=== PATIENT | female | born 1945 | race Caucasian/White ===

== ENCOUNTER → 2023-06-25 | Outpatient (CLI) | payer MEDICARE ==
--- NOTE | 2023-06-26 09:23 | MM ---
Reason for Exam: Screening (asymptomatic). Last mammogram was performed 16 year(s) and 7 month(s) ago. Patient History: Menarche at age 17. First Full-Term at age 20. Postmenopausal. 09/15/2001, Stereotactic Core Biopsy on the Right side. Risk Values: Noris 5 year model risk: 1.4%. NCI Lifetime model risk: 2.8%. Prior Study Comparison: 01/24/2004 Bilateral Special View Mammogram, [facility]. 09/03/2005 Bilateral Screening Mammogram, [facility]. 11/12/2006 Bilateral Screening Mammogram, [facility]. Tissue Density: The breast tissue is almost entirely fat. Findings: Analyzed By CAD. Right breast biopsy clip. There is no suspicious group of microcalcifications or new suspicious mass. Benign-appearing calcifications bilaterally. Overall Assessment: Benign, BI-RAD 2 Management: Screening Mammogram of both breasts in [address] [facility] will attempt to contact patient to return for supplemental views and ultrasound if indicated. Patient should continue monthly self-breast exams. A clinical breast exam by your physician is recommended on an annual basis. This exam should not preclude additional follow-up of suspicious palpable abnormalities. Note on Noris scores and lifetime risk: 1. A Noris score greater than 3% is considered moderate risk. If this is the case, consider specialist referral to assess eligibility for a risk reducing agent. 2. If overall lifetime risk for the development of breast cancer is 20% or higher, the patient may qualify for future screening with alternating mammogram and breast MRI. Electronically signed and approved by: Richi Ramos DO
== END | disposition home or self-care (01) ==
LOC: RADMAMWWP 13:21
PROVIDERS: ATTEND Family Medicine
DX: Z12.31 Encounter for screening mammogram for malignant neoplasm of breast (principal); Z78.0 Asymptomatic menopausal state
CPT/HCPCS: 77063; 77067

== ENCOUNTER 2023-08-07 07:47 | Day surgery (SDC) | payer MEDICARE ==
[2023-08-05 12:42] VITALS: BMI 28.3
[~2023-08-07 07:47] MED LIST: LIDOCAINE 1% (10MG/ML) FOR IV START INTRADERMA PRN
[2023-08-07] MEDS: LACTATED RINGERS 1,000 ML IV SCH (08:16)
[2023-08-07 08:39] VITALS: RESP 16; TEMP 96.3
[2023-08-07] MEDS ORDERED: LIDOCAINE 1% INJ 10MG/ML (20 ML MDV) ONE (08:42)
[2023-08-07] MEDS ORDERED: PROPOFOL 10 MG/ML 20 ML VIAL IV ONE (08:42)
--- NOTE | 2023-08-07 08:44 | P.GSHP ---
History of Present Illness H&P Date: 08/07/23 CHIEF COMPLAINT: GERD HISTORY OF PRESENT ILLNESS: The patient is a 78-year-old female who presents reports gastroesophageal reflux disease. Upper endoscopy was offered for further evaluation and management. PAST MEDICAL HISTORY: Please see list. PAST SURGICAL HISTORY: Please see list. MEDICATIONS: Please see list. ALLERGIES: Please see list. SOCIAL HISTORY: No illicit drug use FAMILY HISTORY: No reports of Crohn disease or ulcerative colitis. REVIEW OF ORGAN SYSTEMS: CONSTITUTIONAL: No reports of fevers or chills. GI: Denies any blood in stools or constipation. PHYSICAL EXAM: VITAL SIGNS: Stable GENERAL: Well-developed and pleasant in no acute distress. HEENT: No scleral icterus. Extraocular movements grossly intact. Moist buccal mucosa. NECK: Supple without lymphadenopathy. CHEST: Unlabored respirations. Equal bilateral excursions. CARDIOVASCULAR: Regular rate and rhythm. Distal 2+ pulses. ABDOMEN: Soft, nondistended. MUSCULOSKELETAL: No clubbing, cyanosis, or edema. ASSESSMENT: 1. Gastroesophageal reflux disease PLAN: 1. Recommend proceeding with an upper endoscopy Past Medical History Past Medical History: Asthma, COPD, Eye Disorder, Hearing Disorder / Deafness, Hyperlipidemia, Hypertension, Osteoarthritis (OA), Sleep Apnea/CPAP/BIPAP Additional Past Medical History / Comment(s): "Mild COPD". Glaucoma. Some hearing loss. Has CPAP. History of Any Multi-Drug Resistant Organisms: None Reported Past Surgical History: Orthopedic Surgery Additional Past Surgical History / Comment(s): Bilateral bunionectomy, bilateral eyelid lifts. Past Anesthesia/Blood Transfusion Reactions: No Reported Reaction Past Psychological History: No Psychological Hx Reported Smoking Status: Former smoker Past Alcohol Use History: None Reported Additional Past Alcohol Use History / Comment(s): Quit smoking 20 yrs ago. Past Drug Use History: None Reported - Past Family History Mother Family Medical History: No Reported History Medications and Allergies Home Medications Medication Instructions Recorded Confirmed Type Ergocalciferol [Vitamin D2 (1250 1,250 mcg PO WEEKLY 08/05/23 08/07/23 History Mcg = 11217 Iu)] Fluticasone/Umeclidin/Vilanter 1 puff INHALATION QAM 08/05/23 08/07/23 History [Trelegy Ellipta 200-62.5-25] Latanoprost Ophth [Xalatan 0.005%] 1 drops BOTH EYES HS 08/05/23 08/07/23 History Montelukast Sodium 10 mg PO QAM 08/05/23 08/07/23 History Pitavastatin Calcium 2 mg PO DAILY 08/05/23 08/07/23 History Raloxifene [Evista] 60 mg PO DAILY 08/05/23 08/07/23 History amLODIPine BESYLATE 10 mg PO QAM 08/05/23 08/07/23 History Allergies Allergy/AdvReac Type Severity Reaction Status Date / Time aspirin Allergy Anaphylaxis Verified 08/07/23 08:05 Penicillins Allergy Anaphylaxis Verified 08/07/23 08:05 Surgical - Exam Vital Signs Temp Pulse Resp BP Pulse Ox 96.3 F L 89 16 129/90 97 08/07/23 08:09 08/07/23 08:09 08/07/23 08:09 08/07/23 08:09 08/07/23 08:09
--- NOTE | 2023-08-07 08:56 | P.PCN ---
Date of Procedure: 08/07/23 Description of Procedure: PREOPERATIVE DIAGNOSIS: Diaphragmatic hiatal hernia Gastroesophageal reflux disease. POSTOPERATIVE DIAGNOSIS: Diaphragmatic hiatal hernia Gastroesophageal reflux disease. OPERATION: Esophagogastroduodenoscopy with biopsies along the esophagus, antrum and duodenum SURGEON: Gertrude Prakash MD ANESTHESIA: MAC. INDICATIONS: The patient is a 78-year-old female who presents with reflux disease. Benefits and risks of the procedure were described. Informed consent was obtained. DESCRIPTION: The patient was brought into the endoscopy suite and laid in the left lateral decubitus position. An Olympus gastroscope was passed along the posterior oropharynx down to the distal esophagus where the squamocolumnar junction was encountered at 40 cm from the incisors. The stomach was entered and no bile reflux was found. Additional findings are listed below. Biopsies with cold fo rceps were obtained of the antrum. The first through third portion of the duodenum was examined. Retroflexion of the scope confirmed Hill grade 4 lower esophageal valve. The squamocolumnar junction demonstrated LA grade B erosive esophagitis. The stomach was desufflated. The patient tolerated the procedure well. FINDINGS: Squamocolumnar junction 30 cm from the incisors. Diaphragmatic hiatus at 37 cm. Hiatal hernia, 7 cm. Hill grade 4 lower esophageal valve. LA grade B erosive esophagitis. Biopsies obtained Biopsies obtained of the duodenum. Chronic gastritis with biopsies obtained. RECOMMENDATIONS: Upper endoscopy as needed. Plan - Discharge Summary Discharge Rx Participant: No New Discharge Prescriptions: Continue Pitavastatin Calcium 2 mg PO DAILY Montelukast Sodium 10 mg PO QAM Fluticasone/Umeclidin/Vilanter [Trelegy Ellipta 200-62.5-25] 1 puff INHALATION QAM Latanoprost Ophth [Xalatan 0.005%] 1 drops BOTH EYES HS amLODIPine BESYLATE 10 mg PO QAM Raloxifene [Evista] 60 mg PO DAILY Ergocalciferol [Vitamin D2 (1250 Mcg = 97085 Iu)] 1,250 mcg PO WEEKLY Discharge Medication List Ergocalciferol [Vitamin D2 (1250 Mcg = 13043 Iu)] 1,250 mcg PO WEEKLY 08/05/23 [History] Fluticasone/Umeclidin/Vilanter [Trelegy Ellipta 200-62.5-25] 1 puff INHALATION QAM 08/05/23 [History] Latanoprost Ophth [Xalatan 0.005%] 1 drops BOTH EYES HS 08/05/23 [History] Montelukast Sodium 10 mg PO QAM 08/05/23 [History] Pitavastatin Calcium 2 mg PO DAILY 08/05/23 [History] Raloxifene [Evista] 60 mg PO DAILY 08/05/23 [History] amLODIPine BESYLATE 10 mg PO QAM 08/05/23 [History] Follow up Appointment(s)/Referral(s): Gertrude Prakash MD [STAFF PHYSICIAN] - 09/03/23 Patient Instructions/Handouts: Hiatal Hernia (DC) Discharge Disposition: HOME SELF-CARE
[2023-08-07 09:13] VITALS: BP 153/77; PULSE 82
== END 2023-08-07 09:32 | disposition home or self-care (01) ==
LOC: ORWHC2ENDO 07:47
PROVIDERS: ATTEND Surgery Plastic and Reconstructive Surgery
DX: K29.50 Unspecified chronic gastritis without bleeding (principal); K44.9 Diaphragmatic hernia without obstruction or gangrene; K21.9 Gastro-esophageal reflux disease without esophagitis; M19.90 Unspecified osteoarthritis, unspecified site; J44.89 Other specified chronic obstructive pulmonary disease; I10 Essential (primary) hypertension; H91.90 Unspecified hearing loss, unspecified ear; E78.5 Hyperlipidemia, unspecified; G47.33 Obstructive sleep apnea (adult) (pediatric); F10.90 Alcohol use, unspecified, uncomplicated; Z87.891 Personal history of nicotine dependence; Z88.0 Allergy status to penicillin; Z79.51 Long term (current) use of inhaled steroids; Z79.899 Other long term (current) drug therapy; Z88.6 Allergy status to analgesic agent
CPT/HCPCS: 88305; 43239; J2001; J2704

== ENCOUNTER → 2023-08-12 | Outpatient (CLI) | payer MEDICARE ==
--- NOTE | 2023-08-12 18:25 | FL ---
EXAMINATION TYPE: FL barium swallow DATE OF EXAM: 08/12/2023 CLINICAL INDICATION: 78-year-old female K44.9 DIAPHRAGMATIC HERNIA WITHOUT OBSTRUCTION OR COMPARISON: None Total Fluoroscopy Time: 2 minutes 14 seconds 367.45 mGycm2 DAP 63 images obtained. FINDINGS: The swallowing mechanism is normal. Aside from [id number] thickening of the cricopharyngeus mus valery, the hypopharyngeal anatomy is preserved. The cervical and thoracic portions have a normal course and caliber. Moderate tertiary peristaltic co ntractions are present. Mildly blunted secondary stripping waves. Mild delay in complete clearance of contrast from the esophagus. The mucosa is normal and no persistent filling defect is encountered. There is a moderate to large hiatal hernia involving just under half of the stomach within the lower chest. Mild gastroesophageal reflux is visualized through the course of the exam. IMPRESSION: 1. Moderate to large hiatal hernia involving just under half of the stomach. Mild gastroesophageal re flux seen during the course of the exam. 2. Mild to moderate CP muscle hypertrophy. 3. Mild esophageal dysmotility.
== END | disposition home or self-care (01) ==
LOC: RADUSWWP 10:45
PROVIDERS: ATTEND Surgery Plastic and Reconstructive Surgery
DX: K44.9 Diaphragmatic hernia without obstruction or gangrene (principal); K22.4 Dyskinesia of esophagus; K21.9 Gastro-esophageal reflux disease without esophagitis; M62.89 Other specified disorders of muscle
CPT/HCPCS: 74220

== ENCOUNTER 2023-12-06 09:29 | Day surgery (SDC) | payer MEDICARE ==
--- NOTE | 2023-12-06 07:50 | P.GSHP ---
History of Present Illness H&P Date: 12/06/23 CHIEF COMPLAINT: Paraesophageal hiatal hernia with gastroesophageal reflux disease. HISTORY OF PRESENT ILLNESS: The patient is a 78-year-old female who presents with symptomatic paraesophageal hiatal hernia over one year with gastroesophageal reflux disease. She has completed upper endoscopy workup. Now she presents for surgical intervention. PAST MEDICAL HISTORY: Please see list. PAST SURGICAL HISTORY: Please see list. MEDICATIONS: Please see list. ALLERGIES: Please see list. SOCIAL HISTORY: No illicit drug use FAMILY HISTORY: No reports of Crohn disease or ulcerative colitis. REVIEW OF ORGAN SYSTEMS: CONSTITUTIONAL: No reports of fevers or chills. GI: Denies any blood in stools or constipation. PHYSICAL EXAM: VITAL SIGNS: Stable GENERAL: Well-developed pleasant and in no acute distress. HEENT: No scleral icterus. Extraocular movements grossly intact. Moist buccal mucosa. NECK: Supple without lymphadenopathy. CHEST: Unlabored respirations. Equal bilateral excursions. CARDIOVASCULAR: Regular rate and rhythm. Distal 2+ pulses. ABDOMEN: Soft, nondistended. No peritoneal signs. MUSCULOSKELETAL: No clubbing, cyanosis, or edema. SKIN: Well-perfused. Good skin turgor. REPORTS: Upper endoscopy demonstrates paraesophageal hiatal hernia BARIUM SWALLOW: Images reviewed demonstrating paraesophageal hiatal hernia. This is my independent interpretation. REPORTS: Cardiology risk assessment obtained. Please see chart. ASSESSMENT: 1. Diaphragmatic paraesophageal hiatal hernia with severe gastroesophageal reflux disease. PLAN: 1. Recommend proceeding with a robotic paraesophageal hiatal hernia with possible mesh. 2. Benefits and risks of surgical intervention was discussed including possibility of open technique. 3. Inpatient hospitalization recommended of 2 nights 4. DVT prophylaxis. 5. Antibiotic prophylaxis. 6. She has also completed a very low caloric high-protein diet to address underlying hepatomegaly. 7. Non narcotic pain management including abdominal wall block described 8. Blood sugar glucose described. 9. Weight loss management described. 10. She is elevated risk due to heart disease including pre-existing kidney disease. Past Medical History Past Medical History: Asthma, COPD, Eye Disorder, Hearing Disorder / Deafness, Hyperlipidemia, Hypertension, Sleep Apnea/CPAP/BIPAP Additional Past Medical History / Comment(s): CHRONIC COUGH. osteoporosis. USES CPAP. History of Any Multi-Drug Resistant Organisms: None Reported Additional Past Surgical History / Comment(s): BILATERAL BUNIONS REMOVED. BI LATERAL. EYELID LIFT. BILATERAL CATARACTS REMOVED/LENS IMPLANT. Past Anesthesia/Blood Transfusion Reactions: No Reported Reaction Past Psychological History: No Psychological Hx Reported Smoking Status: Former smoker Past Alcohol Use History: Occasional Additional Past Alcohol Use History / Comment(s): QUIT 2003. SMOKED .5PPD Past Drug Use History: None Reported - Past Family History Mother Family Medical History: No Reported History Medications and Allergies Home Medications Medication Instructions Recorded Confirmed Type Ergocalciferol [Vitamin D2 (1250 1,250 mcg PO WEEKLY 08/05/23 12/05/23 History Mcg = 45803 Iu)] Fluticasone/Umeclidin/Vilanter 1 puff INHALATION QAM 08/05/23 12/05/23 History [Trelegy Ellipta 200-62.5-25] Latanoprost Ophth [Xalatan 0.005%] 1 drops BOTH EYES HS 08/05/23 12/05/23 History Montelukast Sodium 10 mg PO QAM 08/05/23 12/05/23 History Pitavastatin Calcium 2 mg PO QAM 08/05/23 12/05/23 History Raloxifene [Evista] 60 mg PO DAILY 08/05/23 12/05/23 History amLODIPine BESYLATE 10 mg PO QAM 08/05/23 12/05/23 History Allergies Allergy/AdvReac Type Severity Reaction Status Date / Time aspirin Allergy Anaphylaxis Verified 12/05/23 08:17 Penicillins Allergy Anaphylaxis Verified 12/05/23 08:17
[~2023-12-06 09:29] MED LIST changes: +MIDAZOLAM 2 MG/2 ML VIAL IV PRN; +ONDANSETRON 4 MG/2 ML VIAL IVP PRN; +fentaNYL (PF) 50 MCG/ML 2 ML AMP IV PRN
[2023-12-06] MEDS: IV FLUID CONTINUATION 1,000 ML IV ONE ×3 (10:43→16:17)
[2023-12-06] MEDS: DEXAMETHASONE SOD PHOSPHATE 4 MG/ML 1 ML VIAL IV ONE (10:49)
[2023-12-06] MEDS: ACETAMINOPHEN TAB 500 MG TAB PO PRN (10:49)
[2023-12-06] MEDS: LACTATED RINGERS 1,000 ML IV SCH (10:50)
[2023-12-06] MEDS: ONDANSETRON 4 MG/2 ML VIAL IVP ONE (10:50)
[2023-12-06] MEDS: HEPARIN SODIUM,PORCINE 5,000 UNIT/ML 1 ML VIAL SQ PRN (10:51)
[2023-12-06 10:58] LABS: Basophils % (A) 1 %; Eosinophils # (A) 0.1 k/uL (0-0.7); Eosinophils % (A) 1 %; HCT 41.9 % (34.0-46.0); HGB 12.9 gm/dL (11.4-16.0); Lymphocytes # (A) 1.4 k/uL (1.0-4.8); Lymphocytes % (A) 17 %; MCH 30.5 pg (25.0-35.0); MCHC 30.9 g/dL (31.0-37.0); MCV 98.6 fL (80.0-100.0); Mean Platelet Volume 9.9; Monocytes # (A) 0.7 k/uL (0-1.0); Monocytes % (A) 8 %; Neutrophils % (A) 71 %; Platelet Count 180 k/uL (150-450); RBC 4.25 m/uL (3.80-5.40); RDW 13.3 % (11.5-15.5); WBC 8.4 k/uL (3.8-10.6)
[2023-12-06 11:04] LABS: ALT 16 U/L (4-34); African American GFR (CKD) 49 (>60 ml/min/1.73 sqM); Albumin 4.1 g/dL (3.5-5.0); Anion Gap 6 mmol/L; Blood Urea Nitrogen 41 mg/dL (7-17); Calcium 9.5 mg/dL (8.4-10.2); Carbon Dioxide 22 mmol/L (22-30); Chloride 113 mmol/L (98-107); Glucose 90 mg/dL (74-99); Non-African American GFR(CKD) 42 (>60 ml/min/1.73 sqM); Sodium 141 mmol/L (137-145); Total Bilirubin 0.7 mg/dL (0.2-1.3); Total Protein 6.9 g/dL (6.3-8.2)
[2023-12-06 11:07] LABS: Potassium 5.2 mmol/L (3.5-5.1)
[2023-12-06 11:09] LABS: AST 30 U/L (14-36); Alkaline Phosphatase 60 U/L (38-126); Potassium 5.2 mmol/L (3.5-5.1)
[2023-12-06] MEDS ORDERED: MIDAZOLAM 2 MG/2 ML VIAL ONE (11:35)
[2023-12-06] MEDS ORDERED: LIDOCAINE 1% INJ 10MG/ML (20 ML MDV) ONE (11:35)
[2023-12-06] MEDS ORDERED: PHENYLEPHRINE 10 MG/ML VIAL ONE (11:35)
[2023-12-06] MEDS ORDERED: GLYCOPYRROLATE 0.2 MG/ML 2 ML VIAL ONE (11:35)
[2023-12-06] MEDS ORDERED: ROCURONIUM 10 MG/ML (5 ML VIAL) IV ONE (11:35)
[2023-12-06] MEDS ORDERED: SUCCINYLCHOLINE CHLORIDE 200 MG/10 ML VIAL IV ONE (11:35)
[2023-12-06] MEDS ORDERED: fentaNYL (PF) 50 MCG/ML 2 ML AMP ONE (11:35)
[2023-12-06] MEDS ORDERED: NEOSTIGMINE 1 MG/ML 10 ML VIAL ONE (11:35)
[2023-12-06] MEDS ORDERED: PROPOFOL 10 MG/ML 20 ML VIAL IV ONE (11:35)
[2023-12-06] MEDS: LIDOCAINE 1%-EPI 1:100,000 20 ML VIAL SQ ONE (12:06)
[2023-12-06] MEDS: SODIUM CHLORIDE 0.9% 1,000 ML IV SCH (17:29)
[2023-12-06] MEDS: METOCLOPRAMIDE 5 MG/ML 2 ML VIAL IVP SCH (17:29)
[2023-12-06] MEDS: ONDANSETRON 4 MG/2 ML VIAL IVP PRN (19:12)
[2023-12-06] MEDS: HYDROmorphone 0.5 MG/0.5 ML SYRINGE IVP PRN (19:15)
[2023-12-06] MEDS: SYMBICORT 80-4.5 MCG INHALER INHALATION SCH (20:07)
[2023-12-06] MEDS: SIMETHICONE 40 MG/0.6 ML DROPS 2,000 MG/30 ML BOTTLE PO SCH (21:39)
[2023-12-06] MEDS: HEPARIN SODIUM,PORCINE 5,000 UNIT/ML 1 ML VIAL SQ SCH (21:44)
[2023-12-06] MEDS: PANTOPRAZOLE 40 MG/10 ML VIAL IVP SCH (21:47)
[2023-12-06] MEDS: LATANOPROST 0.005% OPHTH DROPS 2.5 ML BTL BOTH EYES SCH (21:51)
[2023-12-06] MEDS: HYDROmorphone 1 MG/ML 1 ML SYRINGE IVP PRN (23:30)
--- NOTE | 2023-12-07 08:23 | P.OP ---
Date of Procedure: 12/06/23 Description of Procedure: SURGEON: TRE NESS MD PREOPERATIVE DIAGNOSES: 1. Symptomatic paraesophageal diaphragmatic hiatal hernia. 2. Gastroesophageal reflux disease. 3. Hypertensive heart disease 4. Chronic obstructive pulmonary disease 5. Chronic renal insufficiency POSTOPERATIVE DIAGNOSES: 1. Paraesophageal midline diaphragmatic hernia, 9 cm, with incarceration, partial obstruction 2. Gastroesophageal reflux disease. 3. Hypertensive heart disease 4. Obstructive pulmonary disease 5. Left inguinal hernia, indirect 6. Chronic cholecystitis 7. Multiple acute gastric ulcers with bleeding OPERATION: 1. Robotic-assisted da Rolando Xi laparoscopic repair of incarcerated with partial obstruction paraesophageal hiatal hernia, 9 x 6 cm, with [place] Biopatch A 8 x 8 cm. 2. Intraoperative esophagogastroduodenoscopy 3. Placement of 56-Iranian bougie for esophageal dysmotility ANESTHESIA: General with local anesthetic. ESTIMATED BLOOD LOSS: 20 mL SPECIMENS REMOVED: None COMPLICATIONS: None. Condition: stable Disposition: floor FINDINGS: 1. Midline incarcerated and partially obstructed paraesophageal hiatal hernia 9 x 6 cm recurrent complete reconstruction of diaphragmatic hiatus 2. Intraoperative upper endoscopy confirms complete closure of hiatal hernia from Hill grade 4 to Hill grade 1 3. Intraesophageal length over 2 cm 4. Multiple gastric ulcers, acute 4 to 5 mm of incarcerated stomach with intermittent bleeding 5. Moderate subcutaneous emphysema along neck and face resolved after surgery 6. Left inguinal hernia, 1 cm, indirect without incarceration 7. Thickened gallbladder wall concerning for chronic cholecystitis 8. No hepatomegaly or fatty liver disease within the liver consistent with 2- week high-protein low-carb diet with successful 7 to 10 pound weight loss 2 weeks prior to surgery 9. Over 60% incarceration of proximal stomach reduced without gastrotomy INDICATIONS: The patient is a 78-year-old female who presents with gastroesophageal reflux disease poorly controlled despite medications, and a symptomatic diaphragmatic hiatal hernia. Preoperative workup including upper endoscopy demonstrated incarcerated diaphragmatic hiatal hernia. Given the severity of symptoms, the patient had elected for surgical intervention. Benefits and risks including bleeding, infection, recurrence, dysphagia, injury to the lung, need for further surgery was described at length. Informed consent was obtained. DESCRIPTION: The patient was brought into the operating room and placed in supine position. Preoperatively the patient had received heparin subcutaneously for DVT prophylaxis. After general induction, the abdomen was prepped and draped in standard sterile fashion. The patient had previously voided prior to coming to the operating room. Ioban draping was placed along the abdomen. A timeout protocol was confirmed with the surgical team, for which the patient's name, procedure to be performed including DVT prophylaxis with bilateral SCDs, and preoperative antibiotics were also confirmed. A robotic da Rolando Xi system was prepped and primed. At 12 cm from the xiphoid to just below the umbilicus, proposed port sites were marked with indelible marker along the left axillary line, left mid-clavicular line with each ports were marked 10 cm from each other. A 5 mm 0 degrees laparoscopic trocar entry was performed along the left upper quadrant. The abdomen was insufflated to 15 mmHg pressure was tolerated well. Diagnostic laparoscopy demonstrated no injury to bowel, viscera, or mesentery. No injury had occurred to the small bowel or viscera. The liver was smooth consistent with two-week high-protein low-carb diet. Previous trochar sites from cholecystectomy were used. Next, one 8 mm robotic port was placed along the right upper abdomen. An 8-mm port was were placed along the right lateral lateral abdominal wall. The camera 8-mm port was maintained along the epigastrium. Another 12 mm port was placed along the left upper abdominal wall after exchanging the 5 mm port. Please note that the ports were placed at least 20 cm away from the target anatomy. Care was taken to check that each robotic arm were safely away from collision with the bed or the patient. At the epigastrium, a medium sized Best liver retractor was placed under direct visualization with the [employer]ist placed under the right shoulder of the patient. All robotic arms were used. The patient was repositioned in reverse Trendelenburg position at 21-degrees after lowering the bed. The robot was docked above the right side of the patient. Using a grasper for arm 3, a grasper for arm 1, including vessel sealer for arm 2, the robotic system was docked and primed as described. Instruments were interchanged by the surgical supply assistant. I had sat at the console. The gastrohepatic ligament was cleaved using a vessel sealer. Next, the phrenoesophageal ligament was mobilized and the distal esophagus was mobilized circumferentially. The left and right crura was identified. Circumferentially, the hernia sac was excised and brought into the peritoneal cavity. Moderate dissection into the mediastinum was performed to release the esophagus into the abdominal cavity. The paraesophageal hiatal hernia sac was also incised and divided from the esophagus. Care was taken to avoid any gastrotomy. The measured defect was consistent with 3 cm axial length and 3 cm in width. After dissection, the distal esophagus of 2+ cm was brought into the abdominal cavity. Once the hiatus and crura was dissected, 2-0 VLOC nonabsorbable suture was placed to reapproximate the diaphragmatic hiatus posteriorly. To buttress the repair, a [place] Biopatch A was prepared along the back table and cut in half of a christie-hole fashion as to reinforce the repair as an underlay. The mesh was placed along the crural repair and tagged using horizontal mattress sutures using 2-0 VLOC. I went to the head of the bed to perform intraoperative esophagogastroduodenoscopy and placement of a 56Fr bougie. The bougie was passed along the posterior oropharynx into the stomach to address pre-existing esophageal dysmotility for 2 minutes then removed. An Olympus gastroscope was passed through posterior oropharynx. Retroflexion of the scope confirmed a Hill grade 1 lower esophageal valve. The stomach had been desufflated. No evidence of leaks were found of the esophagus or stomach. The GI tract with desufflated This concluded the endoscopic portion of the case. The robot was undocked from the patient. I re-scrubbed into the case. All instruments and pneumoperitoneum and specimens were evacuated from the abdominal cavity. Incisions were reapproximated using 4-0 Monocryl in an interrupted subcuticular fashion. Liquid glue was applied to the skin. Local anesthetic was infiltrated in all wounds for postop analgesia. At the end of the procedure, needle, sponge, and instrument count was verified correct by the surgical consultant. The patient had tolerated the procedure well and was taken to the postanesthesia unit in stable condition. Large paraesophageal hiatal hernia with reconstruction of the hiatus using 2 OV lock and mesh. Width of defect 6 cm length of 8 cm. Completely reduced with placement of bougie. Multiple bleeding ulcers of the incarcerated stomach found, size of ulcers 3 mm at least 4 upper stomach . Left inguinal hernia without obstruction. Gallbladder thickened wall questionable for cholecystitis
--- NOTE | 2023-12-07 08:25 | P.PN ---
Progress Note - Text Progress Note Date: 12/07/23 Intraoperative findings discussed with patient and family postoperatively. Due to extensive nature of obstruction including multiple acute gastric ulcers with bleeding, recommend inpatient hospitalization anticipated more than 2 nights. Protonix 40 mg twice daily initiated. Carafate suspension initiated. Liquid diet including modified protein diet started. Consultation for medical management including close monitoring of renal disease advised. Patient made aware hospitalization through Saturday advised due to complexity of surgery, comorbidities and generalized weakness.
[2023-12-07] MEDS: IPRATROPIUM 0.5 MG/2.5 ML NEBU INHALATION SCH (09:10)
[2023-12-07] MEDS: MONTELUKAST 10 MG TAB PO SCH (09:41)
[2023-12-07] MEDS: DEXAMETHASONE SOD PHOSPHATE 4 MG/ML 1 ML VIAL IVP SCH (09:41)
[2023-12-07] MEDS: SUCRALFATE 1 GM TAB PO SCH (09:42)
--- NOTE | 2023-12-07 11:43 | P.HPIM ---
History of Present Illness Patient is a 49-year-old female admitted for paraesophageal hiatal hernia with multiple ulcers. Patient underwent surgery have some soreness in the surgical site area. Patient has not had any fever does not have leukocytosis at this time liver enzymes, potassium is mildly elevated due to slight hemolysis patient serum creatinine is 1.24. Baseline is not available. BUN is 41 . Patient has a hyperchloremic metabolic acidosis because of which normal saline will be discontinued and patient was started on lactated Ringer's. REVIEW OF SYSTEMS: CONSTITUTIONAL: No fever, no malaise, no fatigue. HEENT: No recent visual problems or hearing problems. Denied any sore throat. CARDIOVASCULAR: No chest pain, orthopnea, PND, no palpitations, no syncope. PULMONARY: No shortness of breath, no cough, no hemoptysis. GASTROINTESTINAL: As mentioned above NEUROLOGICAL: No headaches, no weakness, no numbness. HEMATOLOGICAL: Denies any bleeding or petechiae. GENITOURINARY: Denies any burning micturition, frequency, or urgency. MUSCULOSKELETAL/RHEUMATOLOGICAL: Denies any joint pain, swelling, or any muscle pain. ENDOCRINE: Denies any polyuria or polydipsia. The rest of the 14-point review of systems is negative. PHYSICAL EXAMINATION: GENERAL: The patient is alert and oriented x3, not in any acute distress. Well developed, well nourished. HEENT: Pupils are round and equally reacting to light. EOMI. No scleral icterus. No conjunctival pallor. Normocephalic, atraumatic. No pharyngeal erythema. No thyromegaly. CARDIOVASCULAR: S1 and S2 present. No murmurs, rubs, or gallops. PULMONARY: Chest is clear to auscultation, no wheezing or crackles. ABDOMEN: Surgical site areas are clean MUSCULOSKELETAL: No joint swelling or deformity. EXTREMITIES: No cyanosis, clubbing, or pedal edema. NEUROLOGICAL: Gross neurological examination did not reveal any focal deficits. SKIN: No rashes. Assessment and plan -Hiatal hernia status postrepair, patient has multiple ulcers patient is on Protonix twice a day along with simethicone which will be continued -Hyperchloremic metabolic acidosis: Normal saline will be continued patient will be started on lactated Ringer's -Possible acute renal failure IV fluids as mentioned above at 75 cc/h -Hyperkalemia secondary to hemolysis -Hyperlipidemia patient will be resumed on her statin -Hypertension patient has perioperative hypotension hold off on amlodipine -Patient is on raloxifene no history of breast cancer may be for osteoporosis can be held temporarily Mild transient elevation of liver enzymes very minimal elevation probably secondary to surgery no further intervention at this time DVT prophylaxis: Past Medical History Past Medical History: Asthma, COPD, Eye Disorder, Hearing Disorder / Deafness, Hyperlipidemia, Hypertension, Sleep Apnea/CPAP/BIPAP Additional Past Medical History / Comment(s): CHRONIC COUGH. osteoporosis. USES CPAP. History of Any Multi-Drug Resistant Organisms: None Reported Additional Past Surgical History / Comment(s): BILATERAL BUNIONS REMOVED. BILATERAL. EYELID LIFT. BILATERAL CATARACTS REMOVED/LENS IMPLANT. Past Anesthesia/Blood Transfusion Reactions: No Reported Reaction Past Psychological History: No Psychological Hx Reported Smoking Status: Former smoker Past Alcohol Use History: Occasional Additional Past Alcohol Use History / Comment(s): QUIT 2003. SMOKED .5PPD Past Drug Use History: None Reported - Past Family History Mother Family Medical History: No Reported History Medications and Allergies Home Medications Medication Instructions Recorded Confirmed Type Ergocalciferol [Vitamin D2 (1250 1,250 mcg PO WEEKLY 08/05/23 12/06/23 History Mcg = 10252 Iu)] Fluticasone/Umeclidin/Vilanter 1 puff INHALATION QA 08/05/23 12/05/23 History [Trelegy Ellipta 200-62.5-25] Latanoprost Ophth [Xalatan 0.005%] 1 drops BOTH EYES HS 08/05/23 12/06/23 History Montelukast Sodium 10 mg PO QAM 08/05/23 12/05/23 History Pitavastatin Calcium 2 mg PO QAM 08/05/23 12/06/23 History Raloxifene [Evista] 60 mg PO DAILY 08/05/23 12/06/23 History amLODIPine BESYLATE 10 mg PO QAM 08/05/23 12/05/23 History Allergies Allergy/AdvReac Type Severity Reaction Status Date / Time aspirin Allergy Anaphylaxis Verified 12/06/23 10:09 Penicillins Allergy Anaphylaxis Verified 12/06/23 10:09 Physical Exam Vitals: Vital Signs Temp Pulse Resp BP Pulse Ox 12/07/23 08:00 80 16 12/07/23 07:13 97.9 F 80 16 115/70 97 12/07/23 02:00 97.9 F 70 16 125/77 93 L 12/06/23 20:00 97.6 F 73 16 148/84 95 12/06/23 17:04 97.7 F 71 16 123/74 98 12/06/23 16:30 76 16 117/59 100 12/06/23 16:15 64 16 107/55 100 12/06/23 16:00 67 16 108/58 100 12/06/23 15:45 75 16 111/55 99 12/06/23 15:30 68 16 120/57 100 12/06/23 15:15 73 16 120/57 100 12/06/23 15:00 76 16 119/56 100 12/06/23 14:45 76 16 135/62 100 12/06/23 14:30 83 18 109/56 100 12/06/23 14:15 98.0 F 96 18 124/60 100 Intake and Output 12/06/23 12/07/23 12/07/23 22:59 06:59 14:59 Intake Total 940 Balance 940 Intake: Intake, IV Titration 700 Amount Sodium Chloride 0.9% 1, 600 000 ml @ 50 mls/hr IV . Q20H [facility] Rx#:[id number] ceFAZolin 2 gm In Sodium 50 Chloride 0.9% 50 ml @ 100 mls/hr IVPB ONCE PRN Rx# :[id number] ceFAZolin 2 gm In Sodium 50 Chloride 0.9% 50 ml @ 100 mls/hr IVPB Q8H [facility] Rx#: [id number] Oral 240 Other: Voiding Method Toilet # Voids 0 2 Results CBC & Chem 7: 12/06/23 10:43 12/06/23 10:43 Thrombosis Risk Factor Assmnt - Choose All That Apply Each Factor Represents 1 point: Obesity (BMI >25) Each Risk Factor Represents 2 Points: Laparoscopic surgery Each Risk Factor Represents 3 Points: Age 75 years or older Thrombosis Risk Factor Assessment Total Risk Factor Score: 6 Thrombosis Risk Factor Assessment Level: High Risk
--- NOTE | 2023-12-07 11:55 | P.NPCON ---
History of Present Illness - Reason for Consult acute renal failure - History of Present Illness Reason for consultation: Acute kidney injury History of present illness: Patient is a 78-year-old female seen in renal consultation for acute kidney injury. Patient states she has been told of elevated creatinine in the past over the last couple of years. Creatinine this admission yesterday was 1.24. Potassium level 5.2. Patient underwent laparoscopic repair of incarcerated hiatal hernia with partial obstruction on December 06, 2023. She denies use of nonsteroidals. Denies history of diabetes. Denies history of coronary artery disease. Patient states her mother was on hemodialysis but at the end of her life. She does not follow with nephrology outpatient. Patient does have history of high blood pressure and is maintained on amlodipine outpatient. Blood pressure currently well-controlled. Denies gross hematuria or dysuria. No fever or chills. No vomiting or diarrhea. Vital signs are stable. General: No acute distress. HEENT: Head exam is unremarkable. LUNGS: No audible rhonchi or wheezes. HEART: Rate and Rhythm are regular. ABDOMEN: Nontender. EXTREMITITES: No edema. Past Medical History Past Medical History: Asthma, COPD, Eye Disorder, Hearing Disorder / Deafness, Hyperlipidemia, Hypertension, Sleep Apnea/CPAP/BIPAP Additional Past Medical History / Comment(s): CHRONIC COUGH. osteoporosis. USES CPAP. History of Any Multi-Drug Resistant Organisms: None Reported Additional Past Surgical History / Comment(s): BILATERAL BUNIONS REMOVED. BILATERAL. EYELID LIFT. BILATERAL CATARACTS REMOVED/LENS IMPLANT. Past Anesthesia/Blood Transfusion Reactions: No Reported Reaction Past Psychological History: No Psychological Hx Reported Smoking Status: Former smoker Past Alcohol Use History: Occasional Additional Past Alcohol Use History / Comment(s): QUIT 2003. SMOKED .5PPD Past Drug Use History: None Reported - Past Family History Mother Family Medical History: No Reported History Medications and Allergies Home Medications Medication Instructions Recorded Confirmed Type Ergocalciferol [Vitamin D2 (1250 1,250 mcg PO WEEKLY 08/05/23 12/06/23 History Mcg = 53265 Iu)] Fluticasone/Umeclidin/Vilanter 1 puff INHALATION QAM 08/05/23 12/05/23 History [Trelegy Ellipta 200-62.5-25] Latanoprost Ophth [Xalatan 0.005%] 1 drops BOTH EYES HS 08/05/23 12/06/23 History Montelukast Sodium 10 mg PO QAM 08/05/23 12/05/23 History Pitavastatin Calcium 2 mg PO QAM 08/05/23 12/06/23 History Raloxifene [Evista] 60 mg PO DAILY 08/05/23 12/06/23 History amLODIPine BESYLATE 10 mg PO QAM 08/05/23 12/05/23 History Allergies Allergy/AdvReac Type Severity Reaction Status Date / Time aspirin Allergy Anaphylaxis Verified 12/06/23 10:09 Penicillins Allergy Anaphylaxis Verified 12/06/23 10:09 Physical Exam Vitals: Vital Signs Temp Pulse Resp BP Pulse Ox 12/07/23 08:00 80 16 12/07/23 07:13 97.9 F 80 16 115/70 97 12/07/23 02:00 97.9 F 70 16 125/77 93 L 12/06/23 20:00 97.6 F 73 16 148/84 95 12/06/23 17:04 97.7 F 71 16 123/74 98 12/06/23 16:30 76 16 117/59 100 12/06/23 16:15 64 16 107/55 100 12/06/23 16:00 67 16 108/58 100 12/06/23 15:45 75 16 111/55 99 12/06/23 15:30 68 16 120/57 100 12/06/23 15:15 73 16 120/57 100 12/06/23 15:00 76 16 119/56 100 12/06/23 14:45 76 16 135/62 100 12/06/23 14:30 83 18 109/56 100 12/06/23 14:15 98.0 F 96 18 124/60 100 Intake and Output 12/06/23 12/07/23 12/07/23 22:59 06:59 14:59 Intake Total 940 Balance 940 Intake: Intake, IV Titration 700 Amount Sodium Chloride 0.9% 1, 600 000 ml @ 50 mls/hr IV . Q20H [facility] Rx#:[id number] ceFAZolin 2 gm In Sodium 50 Chloride 0.9% 50 ml @ 100 mls/hr IVPB ONCE PRN Rx# :[id number] ceFAZolin 2 gm In Sodium 50 Chloride 0.9% 50 ml @ 100 mls/hr IVPB Q8H [facility] Rx#: [id number] Oral 240 Other: Voiding Method Toilet # Voids 0 2 Results - Lab Results Most recent lab results Calcium 9.5 mg/dL (8.4-10.2) 12/06/23 10:43 12/06/23 10:43 12/06/23 10:43 Assessment and Plan Plan: Assessment: 1. Acute kidney injury versus underlying chronic kidney disease. Patient says she has been told of elevated creatinine in the past. She does not follow with nephrology outpatient. Creatinine 1.24 this admission. 2. Benign hypertension. 3. Mild hyperkalemia from acute kidney injury and lactated Ringer's. 4. Status post laparoscopic surgical repair of incarcerated hiatal hernia on December 06, 2023. Plan: Hep-Lock IV fluids. Encouraged oral intake. Check UA. Check renal ultrasound. Advised to follow-up outpatient 1 to 2 weeks postdischarge. Avoid nephrotoxins. Morning labs pending. Thank you for the consultation. I will continue to follow the patient with you during her hospital stay.
[2023-12-07 12:10] LABS: African American GFR (CKD) 67 (>60 ml/min/1.73 sqM); Anion Gap 2 mmol/L; Blood Urea Nitrogen 20 mg/dL (7-17); Calcium 8.6 mg/dL (8.4-10.2); Carbon Dioxide 22 mmol/L (22-30); Chloride 116 mmol/L (98-107); Glucose 83 mg/dL (74-99); Non-African American GFR(CKD) 58 (>60 ml/min/1.73 sqM); Sodium 140 mmol/L (137-145)
--- NOTE | 2023-12-07 12:23 | US ---
EXAMINATION TYPE: US kidneys/renal and bladder DATE OF EXAM: 12/07/2023 COMPARISON: NONE CLINICAL INDICATION: Female, 78 years old with history of kenna; kenna EXAM MEASUREMENTS: Right Kidney: 9.1 x 4.4 x 4.4 cm Left Kidney: 8.1 x 3.9 x 4.0 cm Right Kidney: No hydronephrosis or masses seen Left Kidney: No hydronephrosis or masses seen Bladder: wnl Bilateral Jets seen: No There is no evidence for hydronephrosis at this point in time. No nephrolithiasis is seen. No roro s are identified. The urinary bladder is anechoic. Bilateral ureteral jets are seen. IMPRESSION: No evidence for obstructive uropathy. Cortical medullary differentiation is maintained.
[2023-12-07] MEDS: LACTATED RINGERS 1,000 ML IV SCH (12:31)
[2023-12-07] MEDS: SODIUM CHLORIDE 0.9% 1,000 ML IV SCH (13:50)
[2023-12-07 16:06] VITALS: BMI 28.1
--- NOTE | 2023-12-07 17:46 | P.PN ---
Progress Note - Text Progress Note Date: 12/07/23 CHIEF COMPLAINT: Large Paraesophageal Hernia HISTORY OF PRESENT ILLNESS: Tolerating FLD. Denies nausea and vomiting. PHYSICAL EXAM: VITAL SIGNS: Reviewed GENERAL: Well-developed in no acute distress. HEENT: No sclera icterus. Extraocular movements grossly intact. Moist buccal mucosa. Head is atraumatic, normocephalic. Hears conversational speech. No nasal drainage. NECK: Supple without lymphadenopathy. CHEST: Non-labored respirations and equal bilateral excursions. CARDIOVASCULAR: Palpable 2+ radial pulses. ABDOMEN: soft, NTND MUSCULOSKELETAL: No clubbing or cyanosis. NEUROLOGIC: No focal or lateralizing signs. Cranial nerves II through XII grossly intact. PSYCH: Appropriate affect. Alert and oriented to person, place and time. SKIN: Well perfused. Good skin turgor. ASSESSMENT: 1. Large Paraesophageal Hernia PLAN: -FLD -UGI saturday -Nausea Control
[2023-12-07 21:04] LABS: Appearance,Urine Clear (Clear); Bilirubin,Urine Negative (Negative); Blood,Urine Negative (Negative); Color,Urine Colorless; Glucose,Urine (UA) 1+ (Negative); Ketones,Urine Negative (Negative); Leukocyte Esterase,Urine Negative (Negative); Nitrite,Urine Negative (Negative); PH, Urine 5.5 (5.0-8.0); Protein,Urine Negative (Negative); Specific Gravity,Urine 1.013 (1.001-1.035); Urobilinogen,Urine <2.0 mg/dL (<2.0)
[2023-12-08] MEDS: ATORVASTATIN 10 MG TAB PO SCH (08:44)
[2023-12-08] MEDS ORDERED: ATORVASTATIN 10 MG TAB PO SCH (09:00)
[2023-12-08] MEDS ORDERED: RALOXIFENE 60 MG TAB PO SCH (09:00)
--- NOTE | 2023-12-08 09:53 | P.PN ---
Subjective Progress Note Date: 12/08/23 patient [place] stable. She has minimal complaints of pain. On exam vital signs appear stable. Abdomen soft. There is status post laparoscopic repair of hiatal hernia. Patient scheduled for esophagram in a.m. Objective - Vital Signs Vital signs: Vital Signs Temp 97.9 F 12/08/23 07:17 Pulse 78 12/08/23 07:17 Resp 17 12/08/23 07:17 BP 127/69 12/08/23 07:17 Pulse Ox 93 L 12/08/23 07:17 FiO2 Intake & Output 12/07/23 12/08/23 12/08/23 18:59 06:59 18:59 Intake Total 240 590 Output Total 400 Balance -160 590 Weight 67.6 kg Intake: Oral 240 590 Output: Urine 400 Other: Voiding Method Toilet Toilet # Voids 2 2 - Labs CBC & Chem 7: 12/06/23 10:43 12/07/23 11:13 Labs: Abnormal Lab Results - Last 24 Hours (Table) 12/07/23 12/07/23 Range/Units 11:13 20:00 Chloride 116 H (98-107) mmol/L BUN 20 H (7-17) mg/dL Urine Glucose (UA) 1+ H (Negative)
[2023-12-08 09:58] LABS: BUN/Creat Ratio 18.73 Ratio (12.00-20.00); Blood Urea Nitrogen 20.6 mg/dL (9.0-27.0); Calcium 8.6 mg/dL (8.7-10.3); Carbon Dioxide 19.7 mmol/L (21.6-31.8); Chloride 113 mmol/L (96-109); Glucose 150 mg/dL (70-110); Magnesium 2.2 mg/dL (1.5-2.4); Potassium 5.3 mmol/L (3.5-5.5); Sodium 144 mmol/L (135-145)
--- NOTE | 2023-12-08 11:44 | P.PN ---
Subjective Patient is seen in follow-up for acute kidney injury. Renal function improved. Potassium level 5.3. Oral intake is good. No vomiting or diarrhea. Vital signs are stable. General: No acute distress. HEENT: Head exam is unremarkable. LUNGS: No audible rhonchi or wheezes. HEART: Rate and Rhythm are regular. ABDOMEN: Nontender. EXTREMITITES: No edema. Objective - Vital Signs Vital signs: Vital Signs Temp 97.9 F 12/08/23 07:17 Pulse 78 12/08/23 07:17 Resp 17 12/08/23 07:17 BP 127/69 12/08/23 07:17 Pulse Ox 93 L 12/08/23 07:17 FiO2 Intake & Output 12/07/23 12/08/23 12/08/23 18:59 06:59 18:59 Intake Total 240 590 Output Total 400 Balance -160 590 Weight 67.6 kg Intake: Oral 240 590 Output: Urine 400 Other: Voiding Method Toilet Toilet # Voids 2 2 - Labs CBC & Chem 7: 12/06/23 10:43 12/08/23 06:34 Labs: Abnormal Lab Results - Last 24 Hours (Table) 12/07/23 12/07/23 12/08/23 Range/Units 11:13 20:00 06:34 Chloride 116 H 113 H (98-107) mmol/L Carbon Dioxide 19.7 L (21.6-31.8) mmol/L BUN 20 H (7-17) mg/dL Est GFR (CKD-EPI) 52 L (>=60) Glucose 150 H (70-110) mg/dL Calcium 8.6 L (8.7-10.3) mg/dL Urine Glucose (UA) 1+ H (Negative) Assessment and Plan Plan: Assessment: 1. Acute kidney injury versus underlying chronic kidney disease. Patient says she has been told of elevated creatinine in the past. She does not follow with nephrology outpatient. Creatinine improved to 1.1. UA benign. No h ydronephrosis noted on kidney ultrasound. Left kidney atrophic. 2. Benign hypertension. Controlled. 3. Mild hyperkalemia from acute kidney injury and lactated Ringer's. Now slight component of acidosis. Stable. 4. Status post laparoscopic surgical repair of incarcerated hiatal hernia on December 06, 2023. 5. Metabolic acidosis secondary to IV fluids. Plan: Hep-Lock IV fluids. Lokelma 10 g once today. Encouraged oral intake. Advised to follow-up outpatient 1 to 2 weeks postdischarge. Avoid nephrotoxins.
[2023-12-08] MEDS: SODIUM ZIRCONIUM CYCLOSILICATE 10 GM PACKET PO ONE (12:09)
[2023-12-08] MEDS: D5-0.45% NACL WITH KCL 20MEQ/L 1,000 ML IV SCH (13:16)
--- NOTE | 2023-12-08 23:05 | P.PN ---
Subjective Progress Note Date: 12/08/23 Patient is a 49-year-old female admitted for paraesophageal hiatal hernia with multiple ulcers. Patient underwent surgery have some soreness in the surgical site area. Patient has not had any fever does not have leukocytosis at this time liver enzymes, potassium is mildly elevated due to slight hemolysis patient serum creatinine is 1.24. Baseline is not available. BUN is 41 . Patient has a hyperchloremic metabolic acidosis because of which normal saline will be discontinued and patient was started on lactated Ringer's. 12/08/2023 Patient is evaluated in follow up today. Patient is status post hernia repair. Renal function has improved. Blood pressure 119/78 amlodipine on hold. REVIEW OF SYSTEMS: CONSTITUTIONAL: No fever, no malaise, no fatigue. HEENT: No recent visual problems or hearing problems. Denied any sore throat. CARDIOVASCULAR: No chest pain, orthopnea, PND, no palpitations, no syncope. PULMONARY: No shortness of breath, no cough, no hemoptysis. GASTROINTESTINAL: As mentioned above NEUROLOGICAL: No headaches, no weakness, no numbness. PHYSICAL EXAMINATION: GENERAL: The patient is alert and oriented x3, not in any acute distress. Well developed, well nourished. HEENT: Pupils are round and equally reacting to light. EOMI. No scleral icterus. No conjunctival pallor. Normocephalic, atraumatic. No pharyngeal erythema. No thyromegaly. CARDIOVASCULAR: S1 and S2 present. No murmurs, rubs, or gallops. PULMONARY: Chest is clear to auscultation, no wheezing or crackles. ABDOMEN: Surgical site areas are clean MUSCULOSKELETAL: No joint swelling or deformity. EXTREMITIES: No cyanosis, clubbing, or pedal edema. NEUROLOGICAL: Gross neurological examination did not reveal any focal deficits. SKIN: No rashes. Assessment and plan -Hiatal hernia status postrepair, patient has multiple ulcers patient is on Protonix twice a day along with simethicone which will be continued. General surgery started on IV decadron. Patient will have upper GI tomorrow. -Hyperchloremic metabolic acidosis patient is now off IV fluids. -Possible acute renal failure, has been elevated outpatient per patient, renal function has improved with hydration. No urinary retention or obstructive uropathy. -Hyperkalemia secondary to hemolysis -Hyperlipidemia patient will be resumed on her statin -Hypertension patient has perioperative hypotension hold off on amlodipine -Patient is on raloxifene no history of breast cancer may be for osteoporosis can be held temporarily Mild transient elevation of liver enzymes very minimal elevation probably secondary to surgery no further intervention at this time DVT prophylaxis: heparin subcu GI prophylaxis Full Code The impression and plan of care has been dictated by Merari Barrios Nurse Practitioner as directed. Dr. Renny MD I have performed a history and physical examination and medical decision making of this patient, discussed the same with the dictator, and agree with the dictators assessment and plan as written, documented as a scribe. Based on total visit time, I have performed more than 50% of this visit. Objective - Vital Signs Vital signs: Vital Signs Temp 98 F 12/08/23 19:32 Pulse 77 12/08/23 19:32 Resp 16 12/08/23 19:32 BP 119/78 12/08/23 19:32 Pulse Ox 92 L 12/08/23 19:32 FiO2 Intake & Output 12/08/23 12/08/23 12/09/23 06:59 18:59 06:59 Intake Total 590 Balance 590 Intake: Oral 590 Other: Voiding Method Toilet # Voids 2 2 - Labs CBC & Chem 7: 12/06/23 10:43 12/08/23 06:34 Labs: Abnormal Lab Results - Last 24 Hours (Table) 12/08/23 Range/Units 06:34 Chloride 113 H (96-109) mmol/L Carbon Dioxide 19.7 L (21.6-31.8) mmol/L Est GFR (CKD-EPI) 52 L (>=60) Glucose 150 H (70-110) mg/dL Calcium 8.6 L (8.7-10.3) mg/dL Assessment and Plan Time with Patient: Less than 30
[2023-12-09 09:17] LABS: BUN/Creat Ratio 28.11 Ratio (12.00-20.00); Blood Urea Nitrogen 25.3 mg/dL (9.0-27.0); Calcium 8.8 mg/dL (8.7-10.3); Carbon Dioxide 20.5 mmol/L (21.6-31.8); Chloride 111 mmol/L (96-109); Glucose 141 mg/dL (70-110); Potassium 5.1 mmol/L (3.5-5.5); Sodium 142 mmol/L (135-145)
--- NOTE | 2023-12-09 10:52 | XR ---
EXAMINATION TYPE: XR chest 2V DATE OF EXAM: 12/09/2023 COMPARISON: NONE TECHNIQUE: PA and lateral views submitted. HISTORY: Hypoxia FINDINGS: Bilateral lower lobe consolidation and small effusion. Atherosclerotic change aorta. Diffuse osteopen ia. Arthropathy of the shoulder. Heart size normal and no overt failure. Osseous structures demonstr ate hypertrophic and degenerative changes of the spine. IMPRESSION: 1. Bilateral lower lobe infiltrate or atelectasis with small pleural effusion..
--- NOTE | 2023-12-09 10:55 | FL ---
EXAMINATION TYPE: FL esophagus cervic/pharynx DATE OF EXAM: 12/09/2023 HISTORY: Posthernia repair surgery COMPARISON: NONE TECHNIQUE: A double contrast esophagram is performed utilizing air and barium. A total of 34 second s of fluoroscopic time was utilized during procedure and a images obtained. Total dose area product (DAP) in uGy*m?, mGy*cm? (or similar) : Not available. FINDINGS: The esophagus shows normal motility and emptying into the stomach. Occasional dysmotility with tertia ry contractions of the esophagus. Small nodular area of contrast filling could represent a small par aesophageal diverticulum favored over ulcer. Correlate clinically. No evidence of extravasation. No e vidence of hiatal hernia or stricture noted. No significant gastroesophageal reflux was seen during r eal time performance of this study. IMPRESSION: 1. No evidence of obstruction or extravasation. 2. Bilateral lower lobe infiltrate/atelectasis partially included in [id number].
--- NOTE | 2023-12-09 13:28 | P.DS ---
Providers Expected date of discharge: 12/09/23 Attending physician: Gertrude Prakash Consults: 12/06/23 07:51 Consult Physician Routine Consulting Provider: [facility] Consult Reason/Comments: Anesthesia Care Do you want consulting provider notified?: Yes 12/07/23 08:25 Consult Physician Routine Consulting Provider: Dante Laws Consult Reason/Comments: Renal disease, hyperkalemia Do you want consulting provider notified?: Yes Consult Physician Urgent Consulting Provider: Christiano Lawson Consult Reason/Comments: Medical management Do you want consulting provider notified?: Yes Primary care physician: Stated None Hospital Course: Discharge diagnosis 1. Paraesophageal midline diaphragmatic hernia, 9 cm, with incarceration, partial obstruction 2. Gastroesophageal reflux disease. 3. Hypertensive heart disease 4. Obstructive pulmonary disease 5. Left inguinal hernia, indirect 6. Chronic cholecystitis 7. Multiple acute gastric ulcers with bleeding 8. Atelectasis Hospital course The patient is a 78-year-old female who presents with GERD and symptomatic diaphragmatic hiatal hernia. She is status post robotic assisted repair of incarcerated with partial obstruction paraesophageal hiatal hernia with [place] bio patch. Patient tolerated surgery well. Pain controlled. Upper GI shows no evidence of obstruction or extravasation. She is tolerating liquid diet. Afebrile. Having flatus. Denies any difficulty urinating. She is stable for discharge. Physician Sheet [employer] Former note has been reviewed by physician. Signing provider agrees with the documented findings, assessment, and plan of care. Patient Condition at Discharge: Stable Plan - Discharge Summary Discharge Rx Participant: No New Discharge Prescriptions: New bisacodyL [Dulcolax] 5 mg PO DAILY PRN #10 tab PRN Reason: Constipation Simethicone 40 mg/0.6 ml Drops [Mylicon Drops] 40 mg PO PCHS PRN #30 ml PRN Reason: Gas Omeprazole [PriLOSEC] 40 mg PO BID #60 cap Ondansetron Odt [Zofran Odt] 4 mg PO Q8HR PRN #9 tab PRN Reason: Nausea Acetaminophen Tab [Tylenol] 1,000 mg PO Q6HR PRN #30 tablet PRN Reason: Pain Sucralfate [Carafate] 1 gm PO AC-BID #60 tab Continue Pitavastatin Calcium 2 mg PO QAM Montelukast Sodium 10 mg PO QAM Fluticasone/Umeclidin/Vilanter [Trelegy Ellipta 200-62.5-25] 1 puff INHALATION QAM Latanoprost Ophth [Xalatan 0.005%] 1 drops BOTH EYES HS amLODIPine BESYLATE 10 mg PO QAM Raloxifene [Evista] 60 mg PO DAILY Ergocalciferol [Vitamin D2 (1250 Mcg = 30523 Iu)] 1,250 mcg PO WEEKLY Discharge Medication List Ergocalciferol [Vitamin D2 (1250 Mcg = 25730 Iu)] 1,250 mcg PO WEEKLY 08/05/23 [History] Fluticasone/Umeclidin/Vilanter [Trelegy Ellipta 200-62.5-25] 1 puff INHALATION QAM 08/05/23 [History] Latanoprost Ophth [Xalatan 0.005%] 1 drops BOTH EYES HS 08/05/23 [History] Montelukast Sodium 10 mg PO QAM 08/05/23 [History] Pitavastatin Calcium 2 mg PO QAM 08/05/23 [History] Raloxifene [Evista] 60 mg PO DAILY 08/05/23 [History] amLODIPine BESYLATE 10 mg PO QAM 08/05/23 [History] Acetaminophen Tab [Tylenol] 1,000 mg PO Q6HR PRN #30 tablet 12/09/23 [Rx] Omeprazole [PriLOSEC] 40 mg PO BID #60 cap 12/09/23 [Rx] Ondansetron Odt [Zofran Odt] 4 mg PO Q8HR PRN #9 tab 12/09/23 [Rx] Simethicone 40 mg/0.6 ml Drops [Mylicon Drops] 40 mg PO PCHS PRN #30 ml 12/09/23 [Rx] Sucralfate [Carafate] 1 gm PO AC-BID #60 tab 12/09/23 [Rx] bisacodyL [Dulcolax] 5 mg PO DAILY PRN #10 tab 12/09/23 [Rx] Follow up Appointment(s)/Referral(s): Gertrude Prakash MD [STAFF PHYSICIAN] - 12/10/23 Activity/Diet/Wound Care/Special Instructions: Liquid diet only for 2 weeks No lifting over 4 pounds in 4 weeks, May shower No soaking in bath tubs for 2 weeks Please notify your surgeon if you develop nausea and vomiting including new onset of abdominal pain. Please ambulate at all times. Use Simethicone, Gas-X, Tylenol scheduled for the next 24-48 hours for best pain relief. Use ice along incisions for the today to prevent swelling. Please open, cut, crush pills larger than the size of a tic tack No carbonated beverages. No straws. Do not remove scopolamine patch for 3 days, if present Continue Premier protein shakes twice a day Telehealth office visit tomorrow with Dr. Prakash Avoiding Gas Avoid drinking through a straw. Do not chew gum or tobacco. These actions cause you to swallow air, which produces excess gas in your stomach. Chew with your mouth closed. Avoid any foods that cause stomach gas and distention. These foods include corn, dried beans, peas, lentils, onions, broccoli, cauliflower and any food from the cabbage family. Avoid carbonated drinks, alcohol, citrus and tomato products. Carbonated drinks (sodas) are not allowed for the first six to eight weeks after surgery. After this time you can try them again in small amounts Clear Liquid Diet The first diet after surgery is the clear liquid diet. It includes the following liquids: Apple juice Cranberry juice Grape juice Chicken broth Beef broth Flavored gelatin (Jell-O) Decaf tea and coffee Caffeinated beverages are permitted based on tolerance Popsicles [place] ice Full Liquid Diet The full liquid diet contains anything on the clear liquid diet, plus: Milk, soy, rice and almond (no chocolate) Cream of wheat, cream of rice, grits Strained creamed soups (no tomato or broccoli) Vanilla and strawberry-flavored ice cream Sherbet Blended, custard styled or whipped yogurt (plain or vanilla only) Vanilla and butterscotch pudding (no chocolate or coconut) Nutritional drinks including Ensure, Boost, [place] Instant Breakfast (no chocolate-flavored) Note: Dairy products, such as milk, ice cream and pudding, may cause diarrhea in some people just after surgery. You may need to avoid milk products. If so, substitute them with lactose-free beverages, such as soy, rice, Lactaid or almond milks. Discharge Disposition: HOME SELF-CARE
--- NOTE | 2023-12-09 14:03 | P.PN ---
Subjective Progress Note Date: 12/09/23 Patient is a 49-year-old female admitted for paraesophageal hiatal hernia with multiple ulcers. Patient underwent surgery have some soreness in the surgical site area. Patient has not had any fever does not have leukocytosis at this time liver enzymes, potassium is mildly elevated due to slight hemolysis patient serum creatinine is 1.24. Baseline is not available. BUN is 41 . Patient has a hyperchloremic metabolic acidosis because of which normal saline will be discontinued and patient was started on lactated Ringer's. 12/08/2023 Patient is evaluated in follow up today. Patient is status post hernia repair. Renal function has improved. Blood pressure 119/78 amlodipine on hold. 12/09/2023 Patient evaluated in follow up today. Postoperative hiatal hernia repair. Upper GI completed today and patient has been started no diet. Renal function WNL. Patient is noted to have bilateral small pleural effusions/atelectasis on chest xray. Has been receiving IV fluids we will recommend to give a small dose of IV lasix prior to discharge. Patient to follow up with her PCP in 1 to 2 days. REVIEW OF SYSTEMS: CONSTITUTIONAL: No fever, no malaise, no fatigue. HEENT: No recent visual problems or hearing problems. Denied any sore throat. CARDIOVASCULAR: No chest pain, orthopnea, PND, no palpitations, no syncope. PULMONARY: No shortness of breath, no cough, no hemoptysis. GASTROINTESTINAL: As mentioned above NEUROLOGICAL: No headaches, no weakness, no numbness. PHYSICAL EXAMINATION: GENERAL: The patient is alert and oriented x3, not in any acute distress. Well developed, well nourished. HEENT: Pupils are round and equally reacting to light. EOMI. No scleral icterus. No conjunctival pallor. Normocephalic, atraumatic. No pharyngeal erythema. No thyromegaly. CARDIOVASCULAR: S1 and S2 present. No murmurs, rubs, or gallops. PULMONARY: Chest is clear to auscultation, no wheezing or crackles. ABDOMEN: Surgical site areas are clean MUSCULOSKELETAL: No joint swelling or deformity. EXTREMITIES: No cyanosis, clubbing, or pedal edema. NEUROLOGICAL: Gross neurological examination did not reveal any focal deficits. SKIN: No rashes. Assessment and plan -Hiatal hernia status postrepair, patient has multiple ulcers patient is on Protonix twice a day along with simethicone which will be continued. General surgery started on IV decadron. Patient had upper GI done today. -Hyperchloremic metabolic acidosis patient is now off IV fluids. -Possible acute renal failure, has been elevated outpatient per patient, renal function has improved with hydration. No urinary retention or obstructive uropathy. -Hyperkalemia secondary to hemolysis -Hyperlipidemia patient will be resumed on her statin -Hypertension patient has perioperative hypotension hold off on amlodipine -Patient is on raloxifene no history of breast cancer may be for osteoporosis can be held temporarily Mild transient elevation of liver enzymes very minimal elevation probably secondary to surgery no further intervention at this time DVT prophylaxis: heparin subcu GI prophylaxis Full Code Recommending to give a dose of IV lasix prior to discharge and recommending to continue incentive spirometer 10 x an hour while awake on discharge. Follow up with a PCP. The impression and plan of care has been dictated by Merari Barrios Nurse Practitioner as directed. Dr. Renny MD I have performed a history and physical examination and medical decision making of this patient, discussed the same with the dictator, and agree with the dictators assessment and plan as written, documented as a scribe. Based on total visit time, I have performed more than 50% of this visit. Objective - Vital Signs Vital signs: Vital Signs Temp 97.8 F 12/09/23 07:09 Pulse 78 12/09/23 11:59 Resp 16 12/09/23 07:09 BP 152/84 12/09/23 07:09 Pulse Ox 91 L 12/09/23 07:09 FiO2 Intake & Output 12/08/23 12/09/23 12/09/23 18:59 06:59 18:59 Other: Voiding Method Toilet Toilet Toilet # Voids 2 3 - Labs CBC & Chem 7: 12/06/23 10:43 12/09/23 05:37 Labs: Abnormal Lab Results - Last 24 Hours (Table) 12/09/23 Range/Units 05:37 Chloride 111 H (96-109) mmol/L Carbon Dioxide 20.5 L (21.6-31.8) mmol/L BUN/Creatinine Ratio 28.11 H (12.00-20.00) Ratio Glucose 141 H (70-110) mg/dL Assessment and Plan Time with Patient: Less than 30
[2023-12-09 14:06] VITALS: BP 188/96; PULSE 59; RESP 17; TEMP 97.6
[2023-12-09] MEDS: FUROSEMIDE 10 MG/ML 2 ML VIAL IV ONE (14:32)
== END 2023-12-09 14:47 | disposition home or self-care (01) ==
LOC: OR 09:29 → 5NMEDONC 14:02 → OR 12-09 14:47
PROVIDERS: ATTEND Surgery Plastic and Reconstructive Surgery
DX: K44.0 Diaphragmatic hernia with obstruction, without gangrene (principal); E78.5 Hyperlipidemia, unspecified; E87.29 Other acidosis; E87.5 Hyperkalemia; E87.8 Other disorders of electrolyte and fluid balance, not elsewhere classified; G47.30 Sleep apnea, unspecified; I10 Essential (primary) hypertension; J44.89 Other specified chronic obstructive pulmonary disease; J90 Pleural effusion, not elsewhere classified; K21.9 Gastro-esophageal reflux disease without esophagitis; M81.0 Age-related osteoporosis without current pathological fracture; Z88.0 Allergy status to penicillin; Z98.890 Other specified postprocedural states; Z79.899 Other long term (current) drug therapy
CPT/HCPCS: 94640 ×5; 80051; 80053; 80048 ×2; 85025; 81003; 74210; 71046; 76770; 43282; C1781; J1644 ×3; J1100 ×3; J1940; J2765 ×3; J0690 ×2; J2405; J1170 ×3; C9113 ×3; Q9967

== ENCOUNTER → 2024-02-25 | Outpatient (CLI) | payer MEDICARE ==
--- NOTE | 2024-02-25 11:51 | FL ---
EXAMINATION TYPE: FL barium swallow DATE OF EXAM: 02/25/2024 CLINICAL INDICATION: 79-year-old female K22.4, dyskinesia of esophagus, hiatal hernia surgery December 18. Gurgling noise intermittently at the mid chest. COMPARISON: 12/09/2023 Total Fluoroscopy Time: 2 minutes 44 seconds Total DAP: 100 mGycm2 55 images obtained. FINDINGS: There is deep penetration with coating of the vocal folds. No cough reflex during this time. No mary aspiration is identified. Otherwise, the hypopharyngeal anatomy is preserved. There are mild tertiary peristaltic waves within the esophagus and mildly patulous caliber. There is a small diverticulum at the distal esophagus. In addition, there is some mild, smooth relative narrowing at the distal esophagus/GE junction. While the patient is upright, we note a sizable rounded air lucency projecting behind the heart. This back fills when the patient is brought supine and turned to the left suggesting the development of a moder ate to large sized paraesophageal hernia. Mild gastroesophageal reflux is encountered. IMPRESSION: 1. Interval development of a moderate to large paraesophageal hernia. This backfills when the patient is brought supine. 2. Mild relative narrowing at the distal esophagus likely caused by mass effect from the paraesophage al hernia. 3. A small diverticulum at the distal esophagus. Mild esophageal dysmotility and mild gastroesophagea l reflux. 4. Deep penetration with coating of the vocal folds. No cough reflex during this time. Consider spe h pathology evaluation.
== END | disposition home or self-care (01) ==
LOC: RADUSWWP 10:09
PROVIDERS: ATTEND Surgery Plastic and Reconstructive Surgery
DX: K22.4 Dyskinesia of esophagus
CPT/HCPCS: 74220

== ENCOUNTER 2024-04-01 10:29 | Day surgery (SDC) | payer MEDICARE ==
[2024-03-30 14:15] VITALS: BMI 24.5
--- NOTE | 2024-04-01 08:13 | P.GSHP ---
History of Present Illness H&P Date: 04/01/24 CHIEF COMPLAINT: GERD HISTORY OF PRESENT ILLNESS: The patient is a 79-year-old female who presents reports gastroesophageal reflux disease. Upper endoscopy was offered for further evaluation and management. PAST MEDICAL HISTORY: Please see list. PAST SURGICAL HISTORY: Please see list. MEDICATIONS: Please see list. ALLERGIES: Please see list. SOCIAL HISTORY: No illicit drug use FAMILY HISTORY: No reports of Crohn disease or ulcerative colitis. REVIEW OF ORGAN SYSTEMS: CONSTITUTIONAL: No reports of fevers or chills. GI: Denies any blood in stools or constipation. PHYSICAL EXAM: VITAL SIGNS: Stable GENERAL: Well-developed and pleasant in no acute distress. HEENT: No scleral icterus. Extraocular movements grossly intact. Moist buccal mucosa. NECK: Supple without lymphadenopathy. CHEST: Unlabored respirations. Equal bilateral excursions. CARDIOVASCULAR: Regular rate and rhythm. Distal 2+ pulses. ABDOMEN: Soft, nondistended. MUSCULOSKELETAL: No clubbing, cyanosis, or edema. ASSESSMENT: 1. Gastroesophageal reflux disease PLAN: 1. Recommend proceeding with an upper endoscopy Past Medical History Past Medical History: Asthma, COPD, Eye Disorder, Hearing Disorder / Deafness, Hyperlipidemia, Hypertension, Sleep Apnea/CPAP/BIPAP Additional Past Medical History / Comment(s): CHRONIC COUGH. osteoporosis. USES CPAP. GLAUCOMA History of Any Multi-Drug Resistant Organisms: None Reported Additional Past Surgical History / Comment(s): BILATERAL BUNIONS REMOVED. BILATERAL EYELID LIFT. BILATERAL CATARACTS REMOVED/LENS IMPLANT. COLONOSCOPY, HIATAL HERNIA REPAIR, EGD, Past Anesthesia/Blood Transfusion Reactions: No Reported Reaction Smoking Status: Former smoker - Past Family History Mother Family Medical History: No Reported History Medications and Allergies Home Medications Medication Instructions Recorded Confirmed Type Ergocalciferol [Vitamin D2 (1250 1,250 mcg PO MO 08/05/23 03/30/24 History Mcg = 60777 Iu)] Fluticasone/Umeclidin/Vilanter 1 puff INHALATION QAM 08/05/23 03/30/24 History [Trelegy Ellipta 200-62.5-25] Latanoprost Ophth [Xalatan 0.005%] 1 drops BOTH EYES HS 08/05/23 03/30/24 History Montelukast Sodium 10 mg PO QAM 08/05/23 03/30/24 History Pitavastatin Calcium 2 mg PO QAM 08/05/23 03/30/24 History Raloxifene [Evista] 60 mg PO DAILY 08/05/23 03/30/24 History amLODIPine BESYLATE 10 mg PO QAM 08/05/23 03/30/24 History Acetaminophen Tab [Tylenol] 1,000 mg PO Q6HR PRN #30 tablet 12/09/23 03/30/24 Rx Allergies Allergy/AdvReac Type Severity Reaction Status Date / Time aspirin Allergy Anaphylaxis Verified 03/30/24 14:04 Penicillins Allergy Anaphylaxis Verified 03/30/24 14:04
[2024-04-01 11:03] VITALS: TEMP 97.3
[2024-04-01] MEDS: LACTATED RINGERS 1,000 ML IV SCH (11:08)
[2024-04-01] MEDS: IV FLUID CONTINUATION 1,000 ML IV ONE (11:11)
[2024-04-01] MEDS ORDERED: PROPOFOL 10 MG/ML 20 ML VIAL IV ONE (11:50)
[2024-04-01] MEDS ORDERED: LIDOCAINE 1% INJ 10MG/ML (20 ML MDV) ONE (11:50)
[2024-04-01 12:33] VITALS: BP 156/87; RESP 20
[2024-04-01 13:36] VITALS: PULSE 78
--- NOTE | 2024-04-01 14:10 | P.PCN ---
Date of Procedure: 04/01/24 Description of Procedure: PREOPERATIVE DIAGNOSIS: Dysphagia. History of hiatal hernia repair History of paraesophageal hiatal hernia POSTOPERATIVE DIAGNOSIS: Dysphagia. Gastroesophageal reflux disease Recurrent diaphragmatic hiatal hernia Presbyesophagus OPERATION: Esophagogastroduodenoscopy with rigid dilator over the guidewire 48 to 54 Fr. SURGEON: Gertrude Prakash MD ANESTHESIA: MAC. INDICATIONS: The patient is 79-year-old female who presents with dysphagia. She had a recent hiatal hernia repair less than 6 months ago for which her symptoms were new as of 1 month ago. Benefits and risks of the procedure were described. Informed consent was obtained. DESCRIPTION: The patient was brought into the endoscopy suite and laid in the left lateral decubitus position. After a timeout was confirmed, the procedure was initiated. An Olympus gastroscope was passed and the stomach was entered. Mild gastritis was identified. The scope was advanced to the duodenum which was unremarkable. Retroflexion the scope confirmed a Hill grade 3+ lower esophageal valve. Next using an [place] rigid dilator, a guidewire was placed through the gastroscope. Next the scope was withdrawn. A 48 [place] to 54-Grenadian rigid [place]ian dilator was passed carefully along the posterior oropharynx to 50 cm and left in place for 2-3 minutes stretch. The dilator was withdrawn including the guidewire. The scope was reentered along the posterior oropharynx with no findings of full-thickness tear of the upper esophageal sphincter. No full-thickness injury was encountered. The GI tract was desufflated. The patient tolerated the procedure well. FINDINGS: Squamocolumnar junction at 35 cm Diaphragmatic hiatus 35 cm from the incisors Wallisian rigid dilator 54-Grenadian completed. Hill grade 3+ lower esophageal valve. LA grade B esophagitis. Presbyesophagus RECOMMENDATIONS: Upper endoscopy with dilation as needed May need repair of recurrent hiatal hernia Plan - Discharge Summary Discharge Rx Participant: No New Discharge Prescriptions: Continue Pitavastatin Calcium 2 mg PO QAM Montelukast Sodium 10 mg PO QAM Fluticasone/Umeclidin/Vilanter [Trelegy Ellipta 200-62.5-25] 1 puff INHALATION QAM Acetaminophen Tab [Tylenol] 1,000 mg PO Q6HR PRN #30 tablet PRN Reason: Pain Latanoprost Ophth [Xalatan 0.005%] 1 drops BOTH EYES HS amLODIPine BESYLATE 10 mg PO QAM Raloxifene [Evista] 60 mg PO DAILY Ergocalciferol [Vitamin D2 (1250 Mcg = 85880 Iu)] 1,250 mcg PO MO Discharge Medication List Ergocalciferol [Vitamin D2 (1250 Mcg = 88468 Iu)] 1,250 mcg PO MO 08/05/23 [History] Fluticasone/Umeclidin/Vilanter [Trelegy Ellipta 200-62.5-25] 1 puff INHALATION QAM 08/05/23 [History] Latanoprost Ophth [Xalatan 0.005%] 1 drops BOTH EYES HS 08/05/23 [History] Montelukast Sodium 10 mg PO QAM 08/05/23 [History] Pitavastatin Calcium 2 mg PO QAM 08/05/23 [History] Raloxifene [Evista] 60 mg PO DAILY 08/05/23 [History] amLODIPine BESYLATE 10 mg PO QAM 08/05/23 [History] Acetaminophen Tab [Tylenol] 1,000 mg PO Q6HR PRN #30 tablet 12/09/23 [Rx] Follow up Appointment(s)/Referral(s): Gertrude Prakash MD [STAFF PHYSICIAN] - 04/28/24 11:15 am Patient Instructions/Handouts: *Surgery [facility] - (Anesthesia) Discharge Instructions Outpatient Surgery, Hiatal Hernia (DC), Esophageal Dilation (DC) Discharge Disposition: HOME SELF-CARE
== END 2024-04-01 13:45 | disposition home or self-care (01) ==
LOC: ORWHC2ENDO 10:29
PROVIDERS: ATTEND Surgery Plastic and Reconstructive Surgery
DX: K21.00 Gastro-esophageal reflux disease with esophagitis, without bleeding (principal); K44.9 Diaphragmatic hernia without obstruction or gangrene; K29.70 Gastritis, unspecified, without bleeding; R13.10 Dysphagia, unspecified; K22.89 Other specified disease of esophagus; J44.9 Chronic obstructive pulmonary disease, unspecified; I10 Essential (primary) hypertension; E78.5 Hyperlipidemia, unspecified; G47.30 Sleep apnea, unspecified; M81.0 Age-related osteoporosis without current pathological fracture; Z88.0 Allergy status to penicillin; Z88.6 Allergy status to analgesic agent
CPT/HCPCS: 43248; J2003; J2704; 43249

== ENCOUNTER 2024-10-09 15:53 | Inpatient (IN) | payer MEDICARE ==
--- NOTE | 2024-10-09 17:15 | ED ---
Chest Pain HPI - General Source: patient, RN notes reviewed Mode of arrival: ambulatory Limitations: no limitations <Daija Tapia - Last Filed: 10/09/24 17:13> <Kina Ayala - Last Filed: 10/18/24 03:06> - General Chief Complaint: Chest Pain Stated Complaint: Chest Pain Time Seen by Provider: 10/09/24 16:10 - History of Present Illness Initial Comments: Quick [id number] female presenting to emergency department for constant left- sided chest pain that started at 2300 yesterday night. Patient dates that the pain radiates into her left shoulder and down her left arm. Endorses associated nausea, vomiting, diaphoresis. Denies associated shortness of breath. (Daija Tapia) 79-year-old female with asthma, COPD, hypertension who presents emergency department with chest pain. States that it started around 11 PM. Pain radiates to the left side of the neck as well as into the left arm. Has associated nausea with vomiting. No shortness of breath. Patient does have history of paraesophageal hiatal hernia with repair by Dr. Prakash previously in March 2024. She denies history of cardiac disease. No fevers, chills or cough. No calf pain or swelling. No history of DVT or PE. No other alleviating, precipitating modifying factors (Kina Ayala) - Related Data Home Medications Medication Instructions Recorded Confirmed Ergocalciferol [Vitamin D2 (1250 1,250 mcg PO MO 08/05/23 10/09/24 Mcg = [id number] Iu)] Fluticasone/Umeclidin/Vilanter 1 puff INHALATION RT-DAILY 08/05/23 10/09/24 [Trelegy Ellipta 200-62.5-25] Latanoprost Ophth [Xalatan 0.005%] 1 drops BOTH EYES HS 08/05/23 10/09/24 Montelukast Sodium 10 mg PO DAILY 08/05/23 10/09/24 Pitavastatin Calcium 2 mg PO DAILY 08/05/23 10/09/24 Raloxifene [Evista] 60 mg PO DAILY 08/05/23 10/09/24 amLODIPine [Norvasc] 10 mg PO DAILY 10/09/24 10/09/24 Previous Rx's Medication Instructions Recorded Acetaminophen Tab [Tylenol] 1,000 mg PO Q6HR PRN #30 tablet 08/07/24 Acetaminophen Tab [Tylenol Tab] 1,000 mg PO Q6HR PRN #30 tablet 10/15/24 Atorvastatin [Lipitor] 40 mg PO DAILY #30 tab 10/15/24 Metoprolol Tartrate [Lopressor] 25 mg PO BID #60 tab 10/15/24 Omeprazole [PriLOSEC] 40 mg PO DAILY #14 cap 10/15/24 Simethicone 40 mg/0.6 ml Drops 40 mg PO QID #30 ml 10/15/24 [Mylicon Drops] cefuroxime axetiL [Ceftin] 500 mg PO BID #20 tab 10/15/24 Allergies Allergy/AdvReac Type Severity Reaction Status Date / Time aspirin Allergy Anaphylaxis Verified 10/09/24 16:06 Penicillins Allergy Anaphylaxis Verified 10/09/24 16:06 Review of Systems ROS Other: All systems not noted in ROS Statement are negative. <Daija Tapia - Last Filed: 10/09/24 17:13> ROS Other: All systems not noted in ROS Statement are negative. <Kina Ayala - Last Filed: 10/18/24 03:06> ROS Statement: Those systems with pertinent positive or pertinent negative responses have been documented in the HPI. Past Medical History Past Medical History: Asthma, COPD, Eye Disorder, GERD/Reflux, Hyperlipidemia, Hypertension, Sleep Apnea/CPAP/BIPAP Additional Past Medical History / Comment(s): "My food gets stuck between my breasts." osteoporosis. GLAUCOMA. Use CPAP. History of Any Multi-Drug Resistant Organisms: None Reported Additional Past Surgical History / Comment(s): BILATERAL BUNIONS REMOVED. BILATERAL EYELID LIFT. BILATERAL CATARACTS REMOVED/LENS IMPLANT. COLONOSCOPY, HIATAL HERNIA REPAIR X2, EGD, Colonoscopy Past Anesthesia/Blood Transfusion Reactions: No Reported Reaction Additional Past Anesthesia/Blood Transfusion Reaction / Comment(s): No hx of blood transfusion to date. Past Psychological History: No Psychological Hx Reported Smoking Status: Former smoker Past Alcohol Use History: Rare Past Drug Use History: None Reported - Past Family History Mother Family Medical History: No Reported History <Daija Tapia - Last Filed: 10/09/24 17:13> General Exam Limitations: no limitations <Daija Tapia - Last Filed: 10/09/24 17:13> General appearance: alert, in no apparent distress Head exam: Present: atraumatic, normocephalic, normal inspection Eye exam: Present: normal appearance, PERRL, EOMI. Absent: scleral icterus, conjunctival injection, periorbital swelling ENT exam: Present: normal exam, mucous membranes moist Neck exam: Present: normal inspection. Absent: tenderness, meningismus, lymphadenopathy Respiratory exam: Present: normal lung sounds bilaterally. Absent: respiratory distress, wheezes, rales, rhonchi, stridor Cardiovascular Exam: Present: regular rate, normal rhythm, normal heart sounds. Absent: systolic murmur, diastolic murmur, rubs, gallop, clicks GI/Abdominal exam: Present: soft, tenderness (Epigastric), normal bowel sounds. Absent: distended, guarding, rebound, rigid Extremities exam: Present: normal inspection, full ROM, normal capillary refill. Absent: tenderness, pedal edema, joint swelling, calf tenderness Back exam: Present: normal inspection Neurological exam: Present: alert, oriented X3, CN II-XII intact Psychiatric exam: Present: normal affect, normal mood Skin exam: Present: warm, dry, intact, normal color. Absent: rash <Kina Ayala - Last Filed: 10/18/24 03:06> - General Exam Comments Initial Comments: Visual Physical Exam Vital signs reviewed General: Well-appearing, nontoxic, no acute distress. Head: Normocephalic, atraumatic Eyes: PERRLA, EOMI ENT: Airway patent Chest: Nonlabored breathing Skin: No visual rash, normal skin tone Neuro: Alert and oriented 3 Musculoskeletal: No gross abnormalities (Stieler,Daija) Course Vital Signs 10/09/24 10/09/24 10/09/24 16:02 19:43 21:42 Temperature 97.5 F L 98.3 F Pulse Rate 91 87 89 Respiratory 17 19 20 Rate Blood Pressure 180/101 196/98 203/105 O2 Sat by Pulse 100 100 96 Oximetry 10/09/24 10/10/24 10/10/24 22:36 00:22 02:20 Temperature Pulse Rate 94 95 Respiratory 14 18 Rate Blood Pressure 194/95 187/106 139/99 O2 Sat by Pulse 96 98 Oximetry 10/10/24 10/10/24 10/10/24 05:29 08:08 08:21 Temperature Pulse Rate 93 92 Respiratory 16 20 Rate Blood Pressure 163/91 155/92 O2 Sat by Pulse 94 L 95 94 L Oximetry 10/10/24 10/10/24 10:40 13:00 Temperature 98.1 F Pulse Rate 89 91 Respiratory 20 16 Rate Blood Pressure 176/86 O2 Sat by Pulse 96 96 Oximetry Chest Pain MDM <Daija Tapia - Last Filed: 10/09/24 17:13> <Kina Ayala - Last Filed: 10/18/24 03:06> - MDM I completed the quick note portion of this chart signed Daija Tapia PA-C (Daija Tapia) Was pt. sent in by a medical professional or institution (PATRICIA Gray, [facility], urgent care, hospital, or alf...) When possible be specific @ -No Did you speak to anyone other than the patient for history (EMS, parent, family, police, friend...)? What history was obtained from this source @ -No Did you review nursing and triage notes (agree or disagree)? Why? @ -I reviewed and agree with nursing and triage notes Were old charts reviewed (outside hosp., previous admission, EMS record, old EKG, old radiological studies, urgent care reports/EKG's, alf records)? Report findings @ -I reviewed the operative note from March [address] Prakash completed the patient's hiatal hernia surgery Differential Diagnosis (chest pain, altered mental status, abdominal pain women, abdominal pain men, vaginal bleeding, weakness, fever, dyspnea, syncope, headache, dizziness, GI bleed, back pain, seizure, CVA, palpatations, mental health, musculoskeletal)? @ -Differential Abdominal Pain Women: Appendicitis, Cholecystitis, diverticulosis, ischemic bowel, pancreatitis, hepatitis, UTI, gastroenteritis, AAA, incarcerated hernia, bowel obstruction, constipation, inflammatory bowel, hepatitis, peptic ulcer disease, splenic infarction, perforated viscus, vulvitis, ovarian torsion, PID, kidney stone, placenta abruption, this is not meant to be an all-inclusive list EKG interpreted by me (3pts min.). @ -Yes and demonstrates sinus rhythm with rate of 87. ID interval 124. QRS 80. QTc of 388. No acute ST segment elevations or depressions X-rays interpreted by me (1pt min.). @ -As such demonstrates hiatal hernia CT interpreted by me (1pt min.). @ -Yes which demonstrates recurrent hiatal hernia U/S interpreted by me (1pt. min.). @ -US which demonstrates no acute process What testing was considered but not performed or refused? (CT, X-rays, U/S, labs)? Why? @ -None What meds were considered but not given or refused? Why? @ -None Did you discuss the management of the patient with other professionals (professionals i.e. Dr., PA, DOPEMAN, lab, RT, psych nurse, social director, forming tube selector, teacher, gifts officer, vocational case manager)? Give summary @ -Spoke with Dr. Prakash. She would like a CT of the chest and a gallbladder ultrasound. Spoke with Merari from [facility] for admission Was smoking cessation discussed for >3mins.? @ -No Was critical care preformed (if so, how long)? @ -No Were there social determinants of health that impacted care today? How? (Homelessness, low income, unemployed, alcoholism, drug addiction, transportation, low edu. Level, literacy, decrease access to med. care, [facility], rehab)? @ -No Was there de-escalation of care discussed even if they declined (Discuss DNR or withdrawal of care, Hospice)? DNR status @ -No What co-morbidities impacted this encounter? (DM, HTN, Smoking, COPD, CAD, Cancer, CVA, ARF, Chemo, Hep., AIDS, mental health diagnosis, sleep apnea, morbid obesity)? @ -None Was patient admitted / discharged? Hospital course, mention meds given and route, prescriptions, significant lab abnormalities, going to OR and other pertinent info. @ -Upon arrival patient seen and evaluated in bed 25. Thorough history and physical exam was performed. Patient was given a dose of morphine and Zofran. Laboratory studies were conducted. Chest x-ray was performed which demonstrates hiatal hernia. I called and spoke with Dr. Prakash. She does not believe that this is the cause of the patient's pain and therefore is requesting a CT of the chest and a gallbladder ultrasound. These studies were performed. CT of the chest continues to demonstrate the hernia. I did recommend admission and at that time I will continue to trend the patient's troponins but I will have Dr. Garcia consult on the patient. Patient was agreeable to this. Spoke with Merari from [facility] for admission Undiagnosed new problem with uncertain prognosis? @ -No Drug Therapy requiring intensive monitoring for toxicity (Heparin, Nitro, Insulin, Cardizem)? @ -No Were any procedures done? @ -No Diagnosis/symptom? @ -Acute epigastric abdominal pain, suspected recurrent hiatal hernia Acute, or Chronic, or Acute on Chronic? @ -Acute Uncomplicated (without systemic symptoms) or Complicated (systemic symptoms)? @ -Complicated Side effects of treatment? @ -No Exacerbation, Progression, or Severe Exacerbation? @ -No Poses a threat to life or bodily function? How? (Chest pain, [place], [place], pneumonia, PE, COPD, DKA, ARF, appy, cholecystitis, CVA, Diverticulitis, Homicidal, Suicidal, threat to staff... and all critical care pts) @ -No (Kina Ayala) Disposition <Daija Tapia - Last Filed: 10/09/24 17:13> Is patient prescribed a controlled substance at d/c from ED?: No Time of Disposition: 23:00 Decision to Admit Reason: Admit from EC Decision Date: 10/09/24 Decision Time: 23:00 <Kina Ayala - Last Filed: 10/18/24 03:06> Clinical Impression: Epigastric pain, Hiatal hernia Disposition: ADMITTED IP TO THIS HOSP Condition: Stable
[2024-10-09 18:11] LABS: HCT 42.9 % (37.2-46.3); MCH 32.1 pg (27.0-32.0); MCV 91.9 fL (80.0-97.0); Mean Platelet Volume 11.4 fL (9.5-12.2); Platelet Count 248 10*3/uL (140-440); RBC 4.67 10*6/uL (4.10-5.20); RDW 13.2 % (11.5-14.5); WBC 13.96 10*3/uL (4.50-10.00)
[2024-10-09 18:21] LABS: INR 0.9 (<1.2); Partial Thromboplastin Time 25.1 sec (22.0-30.0); Prothrombin Time 9.8 sec (10.0-12.5)
[2024-10-09 18:29] LABS: ALT 12 U/L (4-34); AST 23 U/L (14-36); African American GFR (CKD) 72 (>60 ml/min/1.73 sqM); Albumin 4.6 g/dL (3.5-5.0); Alkaline Phosphatase 88 U/L (38-126); Anion Gap 13 mmol/L; Blood Urea Nitrogen 19 mg/dL (7-17); Calcium 11.1 mg/dL (8.4-10.2); Carbon Dioxide 21 mmol/L (22-30); Chloride 106 mmol/L (98-107); Glucose 112 mg/dL (74-99); Lipase 56 U/L (23-300); Non-African American GFR(CKD) 63 (>60 ml/min/1.73 sqM); Potassium 5.6 mmol/L (3.5-5.1); Sodium 140 mmol/L (137-145); Total Bilirubin 0.7 mg/dL (0.2-1.3); Total Protein 7.9 g/dL (6.3-8.2)
[2024-10-09 18:36] LABS: NT-Pro-B-Type Natriuretic Pept 1900 pg/mL
[2024-10-09 18:48] LABS: Lymphocytes # (M) 1.81 k/uL (1.0-4.8); Neutrophils # (M) 11.45 k/uL (1.3-7.7); Neutrophils % (M) 82 %; Nucleated Red Blood Cells 0 /100 WBC (0-0); Total Cells Counted 100
[2024-10-09 18:49] LABS: Large Platelets Present; Toxic Vacuolation Present
--- NOTE | 2024-10-09 19:31 | XR ---
EXAMINATION TYPE: XR chest 2V DATE OF EXAM: 10/09/2024 6:17 PM COMPARISON: None. CLINICAL INDICATION: Female, 79 years old with history of Chest Pain, TECHNIQUE: XR chest 2V view(s) obtained. FINDINGS: The heart size is normal. The pulmonary vasculature is normal. The lungs are clear. There is a large hiatal hernia with an air-fluid level. IMPRESSION: 1. No acute pulmonary process. 2. Large Hiatal hernia with an air-fluid level [facility], , 10/09/2024 7:28 PM
[2024-10-09] MEDS: ONDANSETRON 4 MG/2 ML VIAL IVP STA (20:15)
[2024-10-09] MEDS: MORPHINE SULFATE 4 MG/ML SYRINGE IVP STA (20:16)
[2024-10-09] MEDS ORDERED: RX INFO: IV CONTRAST WAS GIVEN 1 EACH MISC MISCELLANE PRN (20:47)
--- NOTE | 2024-10-09 21:29 | CT ---
EXAMINATION TYPE: CT chest w con DATE OF EXAM: 10/09/2024 9:13 PM COMPARISON: None CLINICAL INDICATION: Female, 79 years old with history of epigastric, Pt is coming in for chest pain. Pt states that it started around 11pm last night. Having neck pain as well as pain down her left arm . Some nausea, denies SOB and vomiting. TECHNIQUE: Axial images were obtained at 5 mm thick sections. Reconstructed images are reviewed on t computer in the coronal plane. Contrast used:80ml mL of Isovue 300 with IV Contrast, (none if empty) Oral contrast used: (none if empty) CT DLP: 226.4 mGycm, Automated exposure control for dose reduction was used. FINDINGS: Portion of the thyroid visualized is normal. No suspicious lung nodules or focal infiltrates are present. Some mild compressive atelectasis adjace nt to a large hiatal hernia. Hernia may be through the right diaphragm. Large hernia with an air-flui d level is present. Suspicious thickened wall is not evident. It is difficult to follow the outlet. T he distal esophagus appears to extend to the gastroesophageal junction but is difficult to follow the course to the stomach. There is a 1.0 cm pretracheal lymph node at the level of the elda The ascending aorta diameter at the level of the main pulmonary artery is 3.8 cm. The main pulmonary artery diameter at the bifurcat ion is 2.1 cm. Mild coronary artery calcifications present. Limited CT sections are obtained through the upper abdomen. Abdomen is essentially unremarkable. IMPRESSION: 1. Large hiatal hernia which may involve the hernia through the diaphragm. The inlet from the esophag us and the outlet into the distal stomach are hard to track. However, no suspicious changes to sugges t ischemic changes identified at this time. 2. 1 cm borderline enlarged lymph node within the mediastinum [facility], , 10/09/2024 9:26 PM
--- NOTE | 2024-10-09 22:39 | US ---
EXAMINATION TYPE: US gallbladder DATE OF EXAM: 10/09/2024 COMPARISON: NONE CLINICAL INDICATION: Female, 79 years old with history of epigastric; Pt states ABD pain, more on lef t side, nausea TECHNIQUE: Grayscale and color Doppler imaging of the right upper quadrant was performed. FINDINGS: EXAM MEASUREMENTS: Liver Length: 10.9 cm Gallbladder Wall: 0.2 cm CBD: 0.5 cm Right Kidney: 9.1 x 3.3 x 4.1 cm WILDLIFE PHOTOGRAPHER NOTES: Pancreas: Head wnl, body and tail gassed out Liver: Visualized mostly intercostally, visualized portions appeared wnl Gallbladder: wnl Evidence for sonographic Lopez's sign: No CBD: wnl Right Kidney: No evidence of hydro IMPRESSION: 1. Normal right upper quadrant ultrasound as visualized. [facility], , 10/09/2024 10:37 PM
[2024-10-09] MEDS ORDERED: NALOXONE 0.4 MG/ML 1 ML VIAL IV PRN (23:00)
[2024-10-09] MEDS ORDERED: ACETAMINOPHEN TAB 325 MG TAB PO PRN (23:11)
[2024-10-09] MEDS: amLODIPine 10 MG TAB PO SCH (23:20)
[2024-10-09] MEDS: LATANOPROST 0.005% OPHTH DROPS 2.5 ML BTL BOTH EYES SCH (23:51)
[2024-10-10] MEDS: HYDROcodone/APAP 5-325MG 1 EACH TAB PO PRN (01:42)
[2024-10-10] MEDS ORDERED: HEPARIN SODIUM 1,000 UN/ML (10ML VL) IV PRN (01:56)
[2024-10-10] MEDS: SODIUM ZIRCONIUM CYCLOSILICATE 10 GM PACKET PO ONE (01:59)
[2024-10-10] MEDS: ONDANSETRON 4 MG/2 ML VIAL IVP PRN (02:01)
[2024-10-10] MEDS: HEPARIN SOD,PORK IN 0.45% NACL 25,000 UNIT in 0.45% NACL 1 250ML.BAG IV SCH (02:06)
[2024-10-10] MEDS: HEPARIN SODIUM 1,000 UN/ML (10ML VL) IV ONE ×2 (02:14→14:39)
[2024-10-10] MEDS: MORPHINE SULFATE 4 MG/ML SYRINGE IV PRN (02:16)
[2024-10-10 04:28] LABS: Basophils # (A) 0.06 10*3/uL (0.00-0.10); Basophils % (A) 0.4 %; Eosinophils # (A) 0.01 10*3/uL (0.04-0.35); Eosinophils % (A) 0.1 %; HCT 41.8 % (37.2-46.3); HGB 14.1 g/dL (12.0-15.0); Lymphocytes # (A) 1.02 10*3/uL (0.90-5.00); Lymphocytes % (A) 6.4 %; MCH 31.2 pg (27.0-32.0); MCHC 33.7 g/dL (32.0-37.0); MCV 92.5 fL (80.0-97.0); Mean Platelet Volume 13.1 fL (9.5-12.2); Monocytes # (A) 1.47 10*3/uL (0.20-1.00); Monocytes % (A) 9.3 %; Neutrophils # (A) 13.25 10*3/uL (1.80-7.70); Neutrophils % (A) 83.4 %; Platelet Count 158 10*3/uL (140-440); RBC 4.52 10*6/uL (4.10-5.20); RDW 13.2 % (11.5-14.5); WBC 15.87 10*3/uL (4.50-10.00)
[2024-10-10 04:50] LABS: African American GFR (CKD) 68 (>60 ml/min/1.73 sqM); Anion Gap 13 mmol/L; Blood Urea Nitrogen 19 mg/dL (7-17); Calcium 10.1 mg/dL (8.4-10.2); Carbon Dioxide 20 mmol/L (22-30); Chloride 104 mmol/L (98-107); Glucose 119 mg/dL (74-99); Non-African American GFR(CKD) 59 (>60 ml/min/1.73 sqM); Potassium 4.6 mmol/L (3.5-5.1); Sodium 137 mmol/L (137-145)
[2024-10-10] MEDS: SYMBICORT 160-4.5 MCG INHALER INHALATION SCH (08:00)
[2024-10-10] MEDS: MONTELUKAST 10 MG TAB PO SCH (08:49)
[2024-10-10] MEDS: ATORVASTATIN 10 MG TAB PO SCH (08:49)
[2024-10-10] MEDS: PANTOPRAZOLE 40 MG/10 ML VIAL IV SCH (08:50)
[2024-10-10] MEDS: RALOXIFENE 60 MG TAB PO SCH (10:38)
[2024-10-10] MEDS ORDERED: ALPRAZolam 0.5 MG TAB PO PRN (11:21)
[2024-10-10] MEDS ORDERED: NITROGLYCERIN SL TABS 0.4 MG TAB SUBLINGUAL PRN (11:21)
--- NOTE | 2024-10-10 11:39 | P.GSCN ---
History of Present Illness Consult date: 10/10/24 History of present illness: CHIEF COMPLAINT: Chest pain HISTORY OF PRESENT ILLNESS: The patient is a 79-year-old female with history of hiatal hernia status post repair x 2 comes in with acute chest pain. Patient had her last hiatal hernia repair 2 months ago 08/07/2024. She reports new nausea in the past 2 days as well as chest pain with retching that started 2 days ago. She reports feeling a gas bubble of the mid chest and unable to belch for relief. She was doing well as of immediately after surgery. She has maintained a 30 pound weight loss in the past 10 months. She reports her protein intake is subpar, less than 40 to 50 g daily. She reports chest pain became worse last night and hence her presentation to the hospital. PAST MEDICAL HISTORY: See list and reviewed PAST SURGICAL HISTORY: See list and reviewed MEDICATIONS: See list and reviewed ALLERGIES: See list and reviewed SOCIAL HISTORY: See list and reviewed FAMILY HISTORY: See list and reviewed REVIEW OF ORGAN SYSTEMS: CONSTITUTIONAL: No fevers or chills. No recent weight loss. EYES: Has glaucoma HEENT: No difficulties with hearing. No nosebleeds. History of dysphagia. RESPIRATORY: Chronic obstructive pulmonary disease with asthma. Obstructive sleep apnea. CARDIOVASCULAR: Patient presented with chest pain. Has hypertensive heart disease. Has hyperlipidemia GASTROINTESTINAL: New nausea with retching 2 days ago. GENITOURINARY: Denies any blood in urine or increased urinary frequency. NEUROLOGICAL: Denies any numbness or tingling along the distal extremities. No seizure disorders or headaches. MUSCULOSKELETAL: Has back pain, stiffness or joint arthritis. Has osteoporosis SKIN: No current skin cancer. No rash. PSYCHIATRIC: Denies current depression or suicidal thoughts. ENDOCRINE: Denies current thyroid disorders. Denies any blood sugar glucose intolerance. HEME/LYMPHATIC: Denies any lumps and bumps around the neck. No recent deep venous thrombosis. ALLERGY/IMMUNOLOGY: No immunoglobulin therapy. No immune deficiencies. BREAST: Denies current breast lumps, pain or nipple discharge. PHYSICAL EXAM: VITALS: Reviewed CONSTITUTIONAL: Well developed and in no acute distress. EYES: Conjuctivae without sclera icterus. Extraocular movements grossly intact. HEAD, EARS, NOSE, THROAT: Moist buccal mucosa. Head is atraumatic, normocephalic. Hears conversational speech. No nasal drainage. NECK: Supple. No JV distention. No thyroidomegaly. RESPIRATORY: Non-labored respirations and equal bilateral excursions. No gross wheezes. CARDIOVASCULAR: Palpable 2+ radial pulses. ABDOMEN: Mild tenderness epigastrium. No peritonitis. LYMPH: No neck lymphadenopathy. MUSCULOSKELETAL: No clubbing cyanosis or edema SKIN: Warm and well perfused with good skin turgor. NEUROLOGIC: Cranial nerves II through XII grossly intact. No focal or lateralizing signs. PSYCH: Appropriate affect. Alert and oriented to person, place and time. Displays appropriate insight. CLINCAL LABS: Reviewed. WBC elevated. Hemoglobin 14.1. Potassium down 5.6- 4.6. Calcium down 11.1-10.1. Troponins elevated and trending upward. BNP elevated IMAGING: Independently reviewed. CT of the chest independent reviewed demonstrates recurrent paraesophageal hiatal hernia along the left lung over 30 to 40% incarceration. This is my independent or potation. RADIOLOGY: Report reviewed. CT chest demonstrates no signs of inflammatory changes or strangulation. RECORDS: previous old records reviewed demonstrates hiatal hernia repair 08/07/2024 and November 2023 ASSESSMENT: 1. Atypical chest pain 2. Gastroesophageal reflux disease 3. Hypertensive heart disease 4. Osteoporosis 5. Hyperlipidemia 6. 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 Obstructive sleep apnea 8. Nausea 9. Elevated troponins for acute NC PLAN: 1. Recommend ice chips and popsicles and avoid straws or liquids. Keep n.p.o. except ice chips and popsicles until nausea improves. 2. Scheduled simethicone gas drops as patient reports chest pressure with "gas bubble" 3. Scheduled antinausea medications 4. Extensive discussion regarding repair of recurrent paraesophageal hernia described including referral to thoracic surgeon for thoracic approach for reduction of recurrent paraesophageal hiatal hernia including gastropexy after cardiac risk assessment completed. Follow-up with thoracic surgeon outpatient was also described. 5. Monitor troponins. ADVANCE DIRECTIVE: CODE STATUS in chart Thank you for this kind consultation. Dictation was produced using [employer] software. Please excuse any grammatical, word or spelling errors. Past Medical History Past Medical History: Asthma, COPD, Eye Disorder, GERD/Reflux, Hyperlipidemia, Hypertension, Sleep Apnea/CPAP/BIPAP Additional Past Medical History / Comment(s): "My food gets stuck between my breasts." osteoporosis. GLAUCOMA. Use CPAP. History of Any Multi-Drug Resistant Organisms: None Reported Additional Past Surgical History / Comment(s): BILATERAL BUNIONS REMOVED. BILATERAL EYELID LIFT. BILATERAL CATARACTS REMOVED/LENS IMPLANT. COLONOSCOPY, HIATAL HERNIA REPAIR X2, EGD, Colonoscopy Past Anesthesia/Blood Transfusion Reactions: No Reported Reaction Additional Past Anesthesia/Blood Transfusion Reaction / Comm: No hx of blood transfusion to date. Past Psychological History: No Psychological Hx Reported Smoking Status: Former smoker Past Alcohol Use History: Rare Additional Past Alcohol Use History / Comment(s): QUIT 2003. SMOKED .5PPD, started smoking at age 22's. Past Drug Use History: None Reported - Past Family History Mother Family Medical History: No Reported History Medications and Allergies Home Medications Medication Instructions Recorded Confirmed Type Ergocalciferol [Vitamin D2 (1250 1,250 mcg PO MO 08/05/23 10/09/24 History Mcg = 77793 Iu)] Fluticasone/Umeclidin/Vilanter 1 puff INHALATION RT-DAILY 08/05/23 10/09/24 History [Trelegy Ellipta 200-62.5-25] Latanoprost Ophth [Xalatan 0.005%] 1 drops BOTH EYES HS 08/05/23 10/09/24 History Montelukast Sodium 10 mg PO DAILY 08/05/23 10/09/24 History Pitavastatin Calcium 2 mg PO DAILY 08/05/23 10/09/24 History Raloxifene [Evista] 60 mg PO DAILY 08/05/23 10/09/24 History Acetaminophen Tab [Tylenol Tab] 1,000 mg PO Q6HR PRN #30 tablet 08/07/24 10/09/24 Rx amLODIPine [Norvasc] 10 mg PO DAILY 10/09/24 10/09/24 History Allergies Allergy/AdvReac Type Severity Reaction Status Date / Time aspirin Allergy Anaphylaxis Verified 10/09/24 16:06 Penicillins Allergy Anaphylaxis Verified 10/09/24 16:06 Surgical - Exam Vital Signs Temp Pulse Resp BP Pulse Ox 97.5 F L 91 17 180/101 100 10/09/24 16:02 10/09/24 16:02 10/09/24 16:02 10/09/24 16:02 10/09/24 16:02 Results - Labs 10/10/24 03:45 10/10/24 03:45 Abnormal Lab Results - Last 24 Hours (Table) 10/09/24 10/09/24 10/09/24 Range/Units 17:14 17:14 17:14 WBC 13.96 H (4.50-10.00) 10*3/uL MCH 32.1 H (27.0-32.0) pg MPV (9.5-12.2) fL Immature Gran # 0.05 H (0.00-0.04) 10*3/uL Neutrophils # (1.80-7.70) 10*3/uL Neutrophils # (Manual) 11.45 H (1.3-7.7) k/uL Monocytes # (0.20-1.00) 10*3/uL Eosinophils # (0.04-0.35) 10*3/uL PT 9.8 L (10.0-12.5) sec APTT (22.0-30.0) sec Potassium 5.6 H (3.5-5.1) mmol/L Carbon Dioxide 21 L (22-30) mmol/L BUN 19 H (7-17) mg/dL Glucose 112 H (74-99) mg/dL Calcium 11.1 H (8.4-10.2) mg/dL Troponin I (0.000-0.034) ng/mL 10/09/24 10/10/24 10/10/24 Range/Units 23:50 03:45 03:45 WBC 15.87 H (4.50-10.00) 10*3/uL MCH (27.0-32.0) pg MPV 13.1 H (9.5-12.2) fL Immature Gran # 0.06 H (0.00-0.04) 10*3/uL Neutrophils # 13.25 H (1.80-7.70) 10*3/uL Neutrophils # (Manual) (1.3-7.7) k/uL Monocytes # 1.47 H (0.20-1.00) 10*3/uL Eosinophils # 0.01 L (0.04-0.35) 10*3/uL PT (10.0-12.5) sec APTT (22.0-30.0) sec Potassium (3.5-5.1) mmol/L Carbon Dioxide (22-30) mmol/L BUN (7-17) mg/dL Glucose (74-99) mg/dL Calcium (8.4-10.2) mg/dL Troponin I 0.041 H* 0.055 H* (0.000-0.034) ng/mL 10/10/24 10/10/24 Range/Units 03:45 07:54 WBC (4.50-10.00) 10*3/uL MCH (27.0-32.0) pg MPV (9.5-12.2) fL Immature Gran # (0.00-0.04) 10*3/uL Neutrophils # (1.80-7.70) 10*3/uL Neutrophils # (Manual) (1.3-7.7) k/uL Monocytes # (0.20-1.00) 10*3/uL Eosinophils # (0.04-0.35) 10*3/uL PT (10.0-12.5) sec APTT 44.3 H (22.0-30.0) sec Potassium (3.5-5.1) mmol/L Carbon Dioxide 20 L (22-30) mmol/L BUN 19 H (7-17) mg/dL Glucose 119 H (74-99) mg/dL Calcium (8.4-10.2) mg/dL Troponin I (0.000-0.034) ng/mL Diabetes panel 10/09/24 10/10/24 Range/Units 17:14 03:45 Sodium 140 137 (137-145) mmol/L Potassium 5.6 H 4.6 (3.5-5.1) mmol/L Chloride 106 104 (98-107) mmol/L Carbon Dioxide 21 L 20 L (22-30) mmol/L BUN 19 H 19 H (7-17) mg/dL Creatinine 0.89 0.94 (0.52-1.04) mg/dL Glucose 112 H 119 H (74-99) mg/dL Calcium 11.1 H 10.1 (8.4-10.2) mg/dL AST 23 (14-36) U/L ALT 12 (4-34) U/L Alkaline Phosphatase 88 (38-126) U/L Total Protein 7.9 (6.3-8.2) g/dL Albumin 4.6 (3.5-5.0) g/dL Calcium panel 10/09/24 10/10/24 Range/Units 17:14 03:45 Calcium 11.1 H 10.1 (8.4-10.2) mg/dL Albumin 4.6 (3.5-5.0) g/dL Pituitary panel 10/09/24 10/10/24 Range/Units 17:14 03:45 Sodium 140 137 (137-145) mmol/L Potassium 5.6 H 4.6 (3.5-5.1) mmol/L Chloride 106 104 (98-107) mmol/L Carbon Dioxide 21 L 20 L (22-30) mmol/L BUN 19 H 19 H (7-17) mg/dL Creatinine 0.89 0.94 (0.52-1.04) mg/dL Glucose 112 H 119 H (74-99) mg/dL Calcium 11.1 H 10.1 (8.4-10.2) mg/dL Adrenal panel 10/09/24 10/10/24 Range/Units 17:14 03:45 Sodium 140 137 (137-145) mmol/L Potassium 5.6 H 4.6 (3.5-5.1) mmol/L Chloride 106 104 (98-107) mmol/L Carbon Dioxide 21 L 20 L (22-30) mmol/L BUN 19 H 19 H (7-17) mg/dL Creatinine 0.89 0.94 (0.52-1.04) mg/dL Glucose 112 H 119 H (74-99) mg/dL Calcium 11.1 H 10.1 (8.4-10.2) mg/dL Total Bilirubin 0.7 (0.2-1.3) mg/dL AST 23 (14-36) U/L ALT 12 (4-34) U/L Alkaline Phosphatase 88 (38-126) U/L Total Protein 7.9 (6.3-8.2) g/dL Albumin 4.6 (3.5-5.0) g/dL
[2024-10-10] MEDS: ALPRAZolam 0.25 MG TAB PO PRN (11:43)
[2024-10-10] MEDS: ATORVASTATIN 80 MG TAB PO STA (11:44)
[2024-10-10] MEDS: METOPROLOL TARTRATE 25 MG TAB PO SCH (11:44)
[2024-10-10] MEDS: ONDANSETRON 4 MG/2 ML VIAL IVP SCH (12:24)
[2024-10-10] MEDS: SIMETHICONE 40 MG/0.6 ML DROPS 2,000 MG/30 ML BOTTLE PO SCH (12:25)
--- NOTE | 2024-10-10 13:04 | P.CRDCN ---
History of Present Illness History of present illness: HISTORY OF PRESENT ILLNESS: This is a 79-year-old female with a past medical history significant for hypertension, hyperlipidemia, obstructive sleep apnea, and recent hiatal hernia surgery. Patient follows in the office with Dr. Solis. We have been asked to see the patient in consultation for elevated troponins. Patient examined at the bedside in the emergency room. Patient states that she underwent hiatal hernia surgery in August 2024. She states this was the second time she is underwent hiatal hernia repair. Patient reported that for the past 2 nights she has been having nausea and gas pain. She also reports pain in her chest that goes into her neck, shoulder, and back. She states the pain has been constant for the past 2 days. She also reports the pain is worse with deep inspiration. She continues to report mild chest discomfort at the time of examination. DIAGNOSTICS: - EKG reveals sinus mechanism with no signs of acute ischemia. - Chest xray negative for acute process. Large hiatal hernia with air-fluid levels -Chest CT: Mild coronary artery calcifications present. Large hiatal hernia which may involve the hernia through the diaphragm. The inlet from the esophagus and the outlet into the distal stomach are hard to track. However no suspicious changes to suggest ischemic changes identified at this time. 1 cm borderline enlarged lymph nodes within the mediastinum - Laboratory data: WBC 15.87. Hemoglobin 14.1. Platelet count 158. Sodium 137. Potassium 4.6. BUN 19. Creatinine 0.94. Magnesium 2.0. proBNP 1900. Troponin 0.012. 0.041. 0.055. - Current home cardiac medications include amlodipine 10 mg daily and Pitavastatin 2 mg daily. - Most recent echocardiogram obtained in September 2023 revealing ejection fraction 50%, mild concentric LVH, trace to mild AR, moderate MR, moderate to severe TR - Cardiac catheterization history: Patient denies REVIEW OF SYSTEMS: At the time of my exam: CONSTITUTIONAL: Denies fever or chills. HEENT: Denies blurred vision, vision changes, or eye pain. Denies hemoptysis CARDIOVASCULAR: Denies chest pain. Denies orthopnea. Denies PND. Denies palpitations RESPIRATORY: Denies shortness of breath. GASTROINTESTINAL: Denies abdominal pain. Denies nausea or vomiting. HEMATOLOGIC: Denies bleeding disorders. GENITOURINARY: Denies any blood in urine. SKIN: Denies pruitis. Denies rash. PHYSICAL EXAM: VITAL SIGNS: Reviewed. GENERAL: Well-developed in no acute distress. HEENT: Head is normocephalic. Pupils are equal, round. Sclerae anicteric. Mucous membranes of the mouth are moist. Neck supple. No JVD or thyromegaly LUNGS: Respirations even and unlabored. Lungs essentially clear to auscultation bilaterally. HEART: Regular rate and rhythm. S1 and S2 heard. ABDOMEN: Soft. Nondistended. Nontender. EXTREMITIES: Normal range of motion. No clubbing or cyanosis. Peripheral pulses intact. No lower extremity edema NEUROLOGIC: Awake and alert. Oriented x 3. ASSESSMENT: Chest pain with typical and atypical features with mild troponin elevation, rule out CAD History of hiatal hernia surgery x 2, most recently in August 2024 Nausea Hypertension Hyperlipidemia Obstructive sleep apnea History of asthma History of nicotine dependence, quit smoking 10 years ago Reported anaphylactic reaction to aspirin PLAN: Obtain 2D echo to assess cardiac structure and function Continue IV heparin Increase atorvastatin to 40 mg daily Add metoprolol tartrate 25 mg twice a day Patient unable to take aspirin as she states that she has anaphylactic reaction to aspirin in the past N.p.o. Patient to undergo cardiac catheterization today with Dr. Reis Further recommendations pending patient course Nurse practitioner note has been reviewed by physician. Signing provider agrees with the documented findings, assessment, and plan of care documented by HOSTEL MANAGER as a scribe. Past Medical History Past Medical History: Asthma, COPD, Eye Disorder, GERD/Reflux, Hyperlipidemia, Hypertension, Sleep Apnea/CPAP/BIPAP Additional Past Medical History / Comment(s): "My food gets stuck between my breasts." osteoporosis. GLAUCOMA. Use CPAP. History of Any Multi-Drug Resistant Organisms: None Reported Additional Past Surgical History / Comment(s): BILATERAL BUNIONS REMOVED. BILATERAL EYELID LIFT. BILATERAL CATARACTS REMOVED/LENS IMPLANT. COLONOSCOPY, HIATAL HERNIA REPAIR X2, EGD, Colonoscopy Past Anesthesia/Blood Transfusion Reactions: No Reported Reaction Additional Past Anesthesia/Blood Transfusion Reaction / Comment(s): No hx of blood transfusion to date. Past Psychological History: No Psychological Hx Reported Smoking Status: Former smoker Past Alcohol Use History: Rare Additional Past Alcohol Use History / Comment(s): QUIT 2003. SMOKED .5PPD, started smoking at age 22's. Past Drug Use History: None Reported - Past Family History Mother Family Medical History: No Reported History Medications and Allergies Home Medications Medication Instructions Recorded Confirmed Type Ergocalciferol [Vitamin D2 (1250 1,250 mcg PO MO 08/05/23 10/09/24 History Mcg = 41957 Iu)] Fluticasone/Umeclidin/Vilanter 1 puff INHALATION RT-DAILY 08/05/23 10/09/24 History [Trelegy Ellipta 200-62.5-25] Latanoprost Ophth [Xalatan 0.005%] 1 drops BOTH EYES HS 08/05/23 10/09/24 History Montelukast Sodium 10 mg PO DAILY 08/05/23 10/09/24 History Pitavastatin Calcium 2 mg PO DAILY 08/05/23 10/09/24 History Raloxifene [Evista] 60 mg PO DAILY 08/05/23 10/09/24 History Acetaminophen Tab [Tylenol Tab] 1,000 mg PO Q6HR PRN #30 tablet 08/07/24 10/09/24 Rx amLODIPine [Norvasc] 10 mg PO DAILY 10/09/24 10/09/24 History Allergies Allergy/AdvReac Type Severity Reaction Status Date / Time aspirin Allergy Anaphylaxis Verified 10/09/24 16:06 Penicillins Allergy Anaphylaxis Verified 10/09/24 16:06 Physical Exam Vitals: Vital Signs Temp Pulse Resp BP Pulse Ox 10/10/24 10:40 89 20 176/86 96 10/10/24 08:21 92 20 155/92 94 L 10/10/24 08:08 95 10/10/24 05:29 93 16 163/91 94 L 10/10/24 02:20 95 18 139/99 98 10/10/24 00:22 187/106 10/09/24 22:36 94 14 194/95 96 10/09/24 21:42 89 20 203/105 96 10/09/24 19:43 98.3 F 87 19 196/98 100 10/09/24 16:02 97.5 F L 91 17 180/101 100 Intake and Output 10/09/24 10/10/24 10/10/24 22:59 06:59 14:59 Other: Weight 55.338 kg 55.338 kg Results 10/10/24 03:45 10/10/24 03:45 Cardiac Enzymes 04/05/2510/09/24 10/09/24 Range/Units 17:14 17:14 23:50 AST 23 (14-36) U/L Troponin I <0.012 0.041 H* (0.000-0.034) ng/mL 10/10/24 Range/Units 03:45 AST (14-36) U/L Troponin I 0.055 H* (0.000-0.034) ng/mL Coagulation 10/09/24 10/10/24 Range/Units 17:14 07:54 PT 9.8 L (10.0-12.5) sec APTT 25.1 44.3 H (22.0-30.0) sec CBC 10/09/24 10/10/24 Range/Units 17:14 03:45 WBC 13.96 H 15.87 H (4.50-10.00) 10*3/uL RBC 4.67 4.52 (4.10-5.20) 10*6/uL Hgb 15.0 14.1 (12.0-15.0) g/dL Hct 42.9 41.8 (37.2-46.3) % Plt Count 248 158 (140-440) 10*3/uL Comprehensive Metabolic Panel 10/09/24 10/10/24 Range/Units 17:14 03:45 Sodium 140 137 (137-145) mmol/L Potassium 5.6 H 4.6 (3.5-5.1) mmol/L Chloride 106 104 (98-107) mmol/L Carbon Dioxide 21 L 20 L (22-30) mmol/L BUN 19 H 19 H (7-17) mg/dL Creatinine 0.89 0.94 (0.52-1.04) mg/dL Glucose 112 H 119 H (74-99) mg/dL Calcium 11.1 H 10.1 (8.4-10.2) mg/dL AST 23 (14-36) U/L ALT 12 (4-34) U/L Alkaline Phosphatase 88 (38-126) U/L Total Protein 7.9 (6.3-8.2) g/dL Albumin 4.6 (3.5-5.0) g/dL Current Medications Generic Name Dose Route Start Last Admin Trade Name Freq PRN Reason Stop Dose Admin Acetaminophen 650 mg 10/09/24 23:11 Acetaminophen Tab 325 Mg Tab PO Q6HR PRN Mild Pain or Fever > 100.5 Hydrocodone Bitart/Acetaminophen 1 each 10/09/24 23:11 10/10/24 10:38 Hydrocodone/Apap 5-325mg 1 Each Tab PO 1 each Q4HR PRN Administration Moderate Pain (Scale 4 to 6) Alprazolam 0.25 mg 10/10/24 11:21 10/10/24 11:43 Alprazolam 0.25 Mg Tab PO 0.25 mg Q6HR PRN Administration Mild Anxiety Alprazolam 0.5 mg 10/10/24 11:21 Alprazolam 0.5 Mg Tab PO Q6HR PRN Moderate Anxiety Amlodipine Besylate 10 mg 10/09/24 23:15 10/10/24 08:49 Amlodipine 10 Mg Tab PO 10 mg DAILY JUANY Administration Atorvastatin Calcium 40 mg 10/11/24 09:00 Atorvastatin 40 Mg Tab PO DAILY JUANY Budesonide/Formoterol Fumarate 2 puff 10/10/24 08:00 10/10/24 08:00 Symbicort 160-4.5 Mcg Inhaler INHALATION 2 puff RT-BID JUANY Administration Heparin Sodium (Porcine) 0 unit 10/10/24 01:56 Heparin Sodium 1,000 Un/Ml (10ml Vl) IV PER PROTOCOL PRN Low PTT Protocol Heparin Sodium/Sodium Chloride 250 mls @ 6.641 mls/hr 10/10/24 02:00 10/10/24 02:06 25,000 unit/ Sodium Chloride IV 12 units/kg/hr .Q24H JUANY 6.641 mls/hr Administration Protocol 12 UNITS/KG/HR Heparin Sodium (Porcine) 10, 1,001 mls @ 999 mls/hr 10/10/24 07:00 000 unit/ Sodium Chloride IRRIGATION 10/10/24 20:00 ONCE PRN INTRA-OP Heparin Sodium (Porcine) 2,500 250.5 mls @ 250 mls/hr 10/10/24 07:00 unit/ Sodium Chloride IRRIGATION 10/10/24 20:00 ONCE PRN INTRA-OP Latanoprost 1 drops 10/09/24 23:30 10/09/24 23:51 Latanoprost 0.005% Ophth Drops 2.5 Ml Btl BOTH EYES 1 drops HS JUANY Administration Metoprolol Tartrate 25 mg 10/10/24 11:30 10/10/24 11:44 Metoprolol Tartrate 25 Mg Tab PO 25 mg BID JUANY Administration Miscellaneous Information 1 each 10/09/24 20:47 Rx Info: Iv Contrast Was Given 1 Each Misc MISCELLANE 10/11/24 20:47 DAILY PRN Per Protocol Montelukast Sodium 10 mg 10/10/24 09:00 10/10/24 08:49 Montelukast 10 Mg Tab PO 10 mg DAILY JUANY Administration Morphine Sulfate 4 mg 10/09/24 23:11 10/10/24 11:48 Morphine Sulfate 4 Mg/Ml Syringe IV 4 mg Q4HR PRN Administration Severe Pain (Scale 7 to 10) Naloxone HCl 0.2 mg 10/09/24 23:00 Naloxone 0.4 Mg/Ml 1 Ml Vial IV Q2M PRN Opioid Reversal Nitroglycerin 0.4 mg 10/10/24 11:21 Nitroglycerin Sl Tabs 0.4 Mg Tab SUBLINGUAL Q5M PRN Chest Pain Ondansetron HCl 4 mg 10/10/24 12:00 10/10/24 12:24 Ondansetron 4 Mg/2 Ml Vial IVP Not Given Q6HR JUANY Pantoprazole Sodium 40 mg 10/10/24 09:00 10/10/24 08:50 Pantoprazole 40 Mg/10 Ml Vial IV 40 mg DAILY JUANY Administration Raloxifene HCl 60 mg 10/10/24 09:00 10/10/24 10:38 Raloxifene 60 Mg Tab PO 60 mg DAILY JUANY Administration Simethicone 40 mg 10/10/24 13:00 10/10/24 12:25 Simethicone 40 Mg/0.6 Ml Drops 2,000 Mg/30 Ml Bottle PO 40 mg QID JUANY Administration Intake and Output 10/09/24 10/10/24 10/10/24 22:59 06:59 14:59 Other: Weight 55.338 kg 55.338 kg Patient Weight 10/11/24 06:59 Weight 55.338 kg 10/10/24 03:45 10/10/24 03:45
[2024-10-10] MEDS: SODIUM CHLORIDE 0.9% 1,000 ML IV ONE (14:00)
--- NOTE | 2024-10-10 14:00 | P.HPIM ---
History of Present Illness H&P Date: 10/10/24 History of present illness; Patient is 79-year-old female with history of hypertension, hyperlipidemia, JOSEPHINE, recent hiatal hernia surgery who presented with shortness of breath and chest pain. Patient states 2 nights ago she began having constant substernal pain radiating to left arm left neck and left shoulder. Pain described as knifelike and back and dull pain in chest. Worse with deep inspiration. Currently, this pain is still present. She denies orthopnea. Associated symptoms of nausea, shortness of breath. She tried Tums which did not improve her symptoms. She endorses history of 2 hiatal hernia surgeries in the past year. No other symptoms at this time. Spoke with the ER physician, patient admission was accepted by internal medicine service for treatment. REVIEW OF SYSTEMS: Pertinent positives and negatives noted in HPI. PHYSICAL EXAMINATION: Vitals reviewed GENERAL: Resting in bed. EYES: PERRL, no scleral injection or icterus. No gross vision loss. HENT: Normocephalic, atraumatic, hearing grossly intact, moist mucous membranes NECK: No tracheal deviation, full range of motion. CARDIOVASCULAR: S1 and S2 present. No murmurs, rubs, or gallops. PULMONARY: Chest is clear to auscultation, no wheezing, rhonchi, or crackles. ABDOMEN: Soft, nontender, nondistended. No palpable organomegaly. MUSCULOSKELETAL: No apparent joint swelling and deformities. EXTREMITIES: No apparent cyanosis, clubbing. No pedal edema. NEUROLOGICAL: Alert and oriented. Gross neurological examination with no apparent focal deficits. SKIN: No apparent rashes. ER FINDINGS: Labs significant for WBC 15.8, PT 9.8, APTT 44.3, potassium 5.6 => 4.6, bicarb 21 => 20, BUN 19, glucose 119, troponin <0.012 => 0.041 => 0.055, proBNP 1900, lipase 56 EKG independently interpreted showed sinus rhythm heart rate of 87, QTc 388, no signs of ischemic change Chest x-ray done independently interpreted showed no acute cardiopulmonary process. Large hiatal hernia with an air-fluid level Chest CT independently interpreted findings of large hiatal hernia which may involve hernia through diaphragm. No suspicious changes to suggest ischemic changes. 1 cm borderline enlarged lymph node in mediastinum Gallbladder ultrasound interpreted as normal right upper quadrant Assessment and Plan: In summary, patient is 79-year-old female with history of hypertension, hyperlipidemia, JOSEPHINE, recent hiatal hernia surgery who presented with shortness of breath and chest pain. # Chest pain with typical and atypical features #NSTEMI, type II, rule out CAD Initial troponin <0.012 => 0.041 => 0.055 Increase atorvastatin 40 mg given Add metoprolol tartrate 25 mg twice daily Patient unable to tolerate aspirin due to anaphylaxis Heparin drip began Echo pending N.p.o. for cath Cardiac cath planned today Cardiology consulted #History of hiatal hernia surgery 2x, most recent August 2024 CT chest with large hiatal hernia through diaphragm Chest x-ray with air-fluid level Pantoprazole twice daily and Maalox Surgery consulted #Leukocytosis, likely reactive Afebrile, no known source of infection Monitor CBC #Hypertensive urgency Resume home amlodipine Consider adding lisinopril remaining uncontrolled Chronic Medical Conditions #Essential hypertension # Hyperlipidemia #COPD Resume home medication DVT ppx: Heparin drip Code status: Full code F: P.o. E: Replete as needed N: N.p.o. for now A: Ambulatory Anticipated discharge place: Home Anticipated discharge time: Pending clinical course Dr. Lawson seen patient with resident, present during exam, and agreed with findings. Dictation was produced using [employer] dictation software. Please excuse any gramma tical, word or spelling errors. Past Medical History Past Medical History: Asthma, COPD, Eye Disorder, GERD/Reflux, Hyperlipidemia, Hypertension, Sleep Apnea/CPAP/BIPAP Additional Past Medical History / Comment(s): "My food gets stuck between my breasts." osteoporosis. GLAUCOMA. Use CPAP. History of Any Multi-Drug Resistant Organisms: None Reported Additional Past Surgical History / Comment(s): BILATERAL BUNIONS REMOVED. BILATERAL EYELID LIFT. BILATERAL CATARACTS REMOVED/LENS IMPLANT. COLONOSCOPY, HIATAL HERNIA REPAIR X2, EGD, Colonoscopy Past Anesthesia/Blood Transfusion Reactions: No Reported Reaction Additional Past Anesthesia/Blood Transfusion Reaction / Comment(s): No hx of blood transfusion to date. Past Psychological History: No Psychological Hx Reported Smoking Status: Former smoker Past Alcohol Use History: Rare Additional Past Alcohol Use History / Comment(s): QUIT 2003. SMOKED .5PPD, started smoking at age 22's. Past Drug Use History: None Reported - Past Family History Mother Family Medical History: No Reported History Medications and Allergies Home Medications Medication Instructions Recorded Confirmed Type Ergocalciferol [Vitamin D2 (1250 1,250 mcg PO MO 08/05/23 10/09/24 History Mcg = 92767 Iu)] Fluticasone/Umeclidin/Vilanter 1 puff INHALATION RT-DAILY 08/05/23 10/09/24 History [Trelegy Ellipta 200-62.5-25] Latanoprost Ophth [Xalatan 0.005%] 1 drops BOTH EYES HS 08/05/23 10/09/24 History Montelukast Sodium 10 mg PO DAILY 08/05/23 10/09/24 History Pitavastatin Calcium 2 mg PO DAILY 08/05/23 10/09/24 History Raloxifene [Evista] 60 mg PO DAILY 08/05/23 10/09/24 History Acetaminophen Tab [Tylenol Tab] 1,000 mg PO Q6HR PRN #30 tablet 08/07/24 10/09/24 Rx amLODIPine [Norvasc] 10 mg PO DAILY 10/09/24 10/09/24 History Allergies Allergy/AdvReac Type Severity Reaction Status Date / Time aspirin Allergy Anaphylaxis Verified 10/09/24 16:06 Penicillins Allergy Anaphylaxis Verified 10/09/24 16:06 Physical Exam Vitals: Vital Signs Temp Pulse Resp BP Pulse Ox 10/10/24 08:21 92 20 155/92 94 L 10/10/24 08:08 95 10/10/24 05:29 93 16 163/91 94 L 10/10/24 02:20 95 18 139/99 98 10/10/24 00:22 187/106 10/09/24 22:36 94 14 194/95 96 10/09/24 21:42 89 20 203/105 96 10/09/24 19:43 98.3 F 87 19 196/98 100 10/09/24 16:02 97.5 F L 91 17 180/101 100 Intake and Output 10/09/24 10/10/24 10/10/24 22:59 06:59 14:59 Other: Weight 55.338 kg 55.338 kg Results CBC & Chem 7: 10/10/24 03:45 10/10/24 03:45 Labs: Abnormal Lab Results - Last 24 Hours (Table) 0410/09/24 10/09/24 Range/Units 17:14 17:14 17:14 WBC 13.96 H (4.50-10.00) 10*3/uL MCH 32.1 H (27.0-32.0) pg MPV (9.5-12.2) fL Immature Gran # 0.05 H (0.00-0.04) 10*3/uL Neutrophils # (1.80-7.70) 10*3/uL Neutrophils # (Manual) 11.45 H (1.3-7.7) k/uL Monocytes # (0.20-1.00) 10*3/uL Eosinophils # (0.04-0.35) 10*3/uL PT 9.8 L (10.0-12.5) sec APTT (22.0-30.0) sec Potassium 5.6 H (3.5-5.1) mmol/L Carbon Dioxide 21 L (22-30) mmol/L BUN 19 H (7-17) mg/dL Glucose 112 H (74-99) mg/dL Calcium 11.1 H (8.4-10.2) mg/dL Troponin I (0.000-0.034) ng/mL 10/09/24 10/10/24 10/10/24 Range/Units 23:50 03:45 03:45 WBC 15.87 H (4.50-10.00) 10*3/uL MCH (27.0-32.0) pg MPV 13.1 H (9.5-12.2) fL Immature Gran # 0.06 H (0.00-0.04) 10*3/uL Neutrophils # 13.25 H (1.80-7.70) 10*3/uL Neutrophils # (Manual) (1.3-7.7) k/uL Monocytes # 1.47 H (0.20-1.00) 10*3/uL Eosinophils # 0.01 L (0.04-0.35) 10*3/uL PT (10.0-12.5) sec APTT (22.0-30.0) sec Potassium (3.5-5.1) mmol/L Carbon Dioxide (22-30) mmol/L BUN (7-17) mg/dL Glucose (74-99) mg/dL Calcium (8.4-10.2) mg/dL Troponin I 0.041 H* 0.055 H* (0.000-0.034) ng/mL 10/10/24 10/10/24 Range/Units 03:45 07:54 WBC (4.50-10.00) 10*3/uL MCH (27.0-32.0) pg MPV (9.5-12.2) fL Immature Gran # (0.00-0.04) 10*3/uL Neutrophils # (1.80-7.70) 10*3/uL Neutrophils # (Manual) (1.3-7.7) k/uL Monocytes # (0.20-1.00) 10*3/uL Eosinophils # (0.04-0.35) 10*3/uL PT (10.0-12.5) sec APTT 44.3 H (22.0-30.0) sec Potassium (3.5-5.1) mmol/L Carbon Dioxide 20 L (22-30) mmol/L BUN 19 H (7-17) mg/dL Glucose 119 H (74-99) mg/dL Calcium (8.4-10.2) mg/dL Troponin I (0.000-0.034) ng/mL Thrombosis Risk Factor Assmnt - Choose All That Apply Any of the Below Risk Factors Present?: Yes Each Factor Represents 1 point: Varicose veins Each Risk Factor Represents 2 Points: Patient confined to bed Each Risk Factor Represents 3 Points: Age 75 years or older Other congenital or acquired thrombophilia - If yes, enter type in comment: No Thrombosis Risk Factor Assessment Total Risk Factor Score: 6 Thrombosis Risk Factor Assessment Level: High Risk
[2024-10-10] MEDS: fentaNYL (PF) 50 MCG/ML 2 ML AMP IVP ONE (14:29)
[2024-10-10] MEDS: LIDOCAINE 1% INJ 10MG/ML (20 ML MDV) SQ ONE (14:30)
[2024-10-10] MEDS: HEPARIN SODIUM,PORCINE 10,000 UNIT in SODIUM CHLORIDE 0.9% 1,000 ML IRRIGATION PRN (14:30)
[2024-10-10] MEDS: HEPARIN SODIUM,PORCINE (1 ML) 2,500 UNIT in SODIUM CHLORIDE 0.9% 250 ML IRRIGATION PRN (14:30)
[2024-10-10] MEDS: VERAPAMIL SYRINGE (5 MG/10 ML) INTRAARTER ONE (14:31)
[2024-10-10] MEDS: IOPAMIDOL-370 100ML BTL INJ ONE (14:45)
[2024-10-10] MEDS ORDERED: RX INFO: IV CONTRAST WAS GIVEN 1 EACH MISC MISCELLANE PRN (14:56)
[2024-10-10] MEDS: SODIUM CHLORIDE 0.9% 1,000 ML IV SCH (15:00)
--- NOTE | 2024-10-10 15:03 | P.CARDCATH ---
Date of Procedure: 10/10/24 Description of Procedure: Cardiac Catheterization: The patient is a 79-year-old female with a history of hypertension and hyperlipidemia who presented with abdominal discomfort and chest discomfort radiating to the neck and the left shoulder with nausea and vomiting. She had mild troponin elevation but no significant EKG changes. She persisted with having recurrent chest discomfort. Recommendations were made regarding cardiac catheterization, the risks and the complications were discussed with the patient who is in full understanding and agreement. 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 Using Xylocaine Anesthesia and modified Seldinger technique, a 6-Singaporean sheath was introduced in the right radial artery . Subsequently, selective coronary angiography was performed using a 5-Singaporean 3.5 bend Truman catheter. Multiple views of the coronary artery including hemiaxial views were obtained. The right Truman catheter was used to cross the aortic valve and LVEDP was calculated. Following that, catheter and sheath were removed. Hemostasis was obtained with deployment of vascular band . There was no immediate complication. Patient was returned to room in stable condition. Of note, the patient received a total of 3000 units of intravenous heparin as well as intra-arterial verapamil. Findings: Left main: This is a large size vessel, trifurcating into LAD, ramus intermedius and left circumflex, left main has no obstructive disease. LAD: This is a large size vessel, tortuous in the mid and distal segment, tapers down. Gives rise to a small diagonal branch in the midsegment. The LAD in the midsegment after the takeoff of the diagonal branch has a 20% plaque, the rest of the vessel has no high-grade stenosis. Left circumflex: This is a nondominant vessel, giving rise to a large obtuse marginal branch, the left circumflex and its branches have no evidence of obstructive disease. RCA: This is a dominant vessel, large in caliber, bifurcating into PDA and PLV. The proximal and mid RCA has mild intimal disease of 10 to 20% with no high- grade stenosis Ramus intermedius: This is a moderately sized vessel that has no evidence of high-grade stenosis Left Ventriculogram: Not performed Hemodynamics: There was no gradient across aortic valve, LVEDP was 5-8 mmHg Conclusion: 1. Mild obstructive disease in the mid LAD and proximal and mid RCA 2. Right dominance 3. Low LVEDP Recommendations: I see no evidence of obstructive disease to explain her chest discomfort and troponin elevation. It is possible that her presentation is related to a type II myocardial injury related to her abdominal symptoms. An echocardiogram with Doppler will be obtained to evaluate her low ventricular systolic function. The findings and the recommendations were discussed with the patient and the family and they were in full understanding and agreement. Duration of sedation is 17 minutes.
[2024-10-11 06:32] LABS: Basophils # (A) 0.06 10*3/uL (0.00-0.10); Basophils % (A) 0.3 %; Eosinophils # (A) 0.02 10*3/uL (0.04-0.35); Eosinophils % (A) 0.1 %; HCT 44.8 % (37.2-46.3); HGB 14.4 g/dL (12.0-15.0); Lymphocytes # (A) 1.07 10*3/uL (0.90-5.00); Lymphocytes % (A) 5.8 %; MCH 30.6 pg (27.0-32.0); MCHC 32.1 g/dL (32.0-37.0); MCV 95.3 fL (80.0-97.0); Mean Platelet Volume 11.3 fL (9.5-12.2); Monocytes # (A) 1.71 10*3/uL (0.20-1.00); Monocytes % (A) 9.3 %; Neutrophils # (A) 15.43 10*3/uL (1.80-7.70); Neutrophils % (A) 84.2 %; Platelet Count 217 10*3/uL (140-440); RDW 13.8 % (11.5-14.5); WBC 18.35 10*3/uL (4.50-10.00)
[2024-10-11 06:52] LABS: African American GFR (CKD) 48 (>60 ml/min/1.73 sqM); Anion Gap 12 mmol/L; Blood Urea Nitrogen 32 mg/dL (7-17); Carbon Dioxide 23 mmol/L (22-30); Chloride 104 mmol/L (98-107); Glucose 109 mg/dL (74-99); Non-African American GFR(CKD) 42 (>60 ml/min/1.73 sqM); Potassium 5.3 mmol/L (3.5-5.1); Sodium 139 mmol/L (137-145)
--- NOTE | 2024-10-11 08:43 | P.PN ---
Subjective Progress Note Date: 10/11/24 CHIEF COMPLAINT: Chest pain HISTORY OF PRESENT ILLNESS: The patient is a 79-year-old female with history of hiatal hernia status post repair x 2 comes in with acute chest pain. She completed both her echo as well as cardiac catheterization demonstrating no obstructive lesions. She reports the epigastric chest pressure has improved however she reports troubles with swallowing including ice chips or popsicles. Now she complains of neck pain and back pain. She reports posterior left chest pressure. REVIEW OF ORGAN SYSTEMS: No shortness of breath. No fevers or chills. No productive sputum. PHYSICAL EXAM: VITALS: Reviewed CONSTITUTIONAL: Well developed and in no acute distress. EYES: Conjuctivae without sclera icterus. Extraocular movements grossly intact. HEAD, EARS, NOSE, THROAT: Moist buccal mucosa. Head is atraumatic, normocephalic. Hears conversational speech. No nasal drainage. RESPIRATORY: Non-labored respirations and equal bilateral excursions. No gross wheezes. CARDIOVASCULAR: Palpable 2+ radial pulses. ABDOMEN: Mild tenderness epigastrium. No peritonitis. MUSCULOSKELETAL: No clubbing cyanosis or edema SKIN: Warm and well perfused with good skin turgor. NEUROLOGIC: Cranial nerves II through XII grossly intact. No focal or lateralizing signs. PSYCH: Appropriate affect. Alert and oriented to person, place and time. Displays appropriate insight. CLINCAL LABS: Reviewed. WBC elevated from 13,000-18,000. Hemoglobin 14.1. Potassium elevated 4.6-5.3. Creatinine elevated 0.89-1.24. REPORTS: Cardiac catheterization demonstrates no obstructive lesions. ASSESSMENT: 1. Atypical chest pain 2. Gastroesophageal reflux disease 3. Hypertensive heart disease 4. Osteoporosis 5. Hyperlipidemia 6. 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 Obstructive sleep apnea 8. Nausea 9. Elevated troponins for acute [place], excluded 10. Incarcerated paraesophageal hiatal hernia with atypical chest pain 11. Acute kidney failure 12. Dehydration PLAN: 1. She was placed on antinausea medication including Gas-X which did help some of her symptoms however she still reports chest pressure radiating to her left back. Options for transfer to outside facility for thoracic surgery repair versus intervention at this facility was described. Due to her pain and discomfort she is opting for surgical invention while and during this hospitalization. 2. Creatinine is elevated and she reports minimal oral intake due to pain with swallowing. 1 L normal saline bolus initiated. Additionally, consultation to nephrology placed. 3. Due to her third repair, patient's elevated risk. Patient is aware she may need further assessment with thoracic surgeon and wished to proceed with risks. ADVANCE DIRECTIVE: CODE STATUS in chart Dictation was produced using [employer] dictation software. Please excuse any grammatical, word or spelling errors. Objective - Vital Signs Vital signs: Vital Signs Temp 97.5 F L 10/10/24 19:25 Pulse 93 10/11/24 03:35 Resp 16 10/11/24 03:35 BP 123/80 10/11/24 03:35 Pulse Ox 95 10/11/24 03:35 FiO2 Intake & Output 10/10/24 10/11/24 10/11/24 18:59 06:59 18:59 Intake Total 310 20 Balance 310 20 Weight 55.338 kg 54.3 kg Intake: IV 310 20 Invasive Line 1 10 20 Oral 0 Other: Voiding Method Toilet Toilet # Voids 1 - Labs CBC & Chem 7: 10/11/24 06:07 10/11/24 06:07 Labs: Abnormal Lab Results - Last 24 Hours (Table) 10/10/24 10/11/24 10/11/24 Range/Units 07:54 06:07 06:07 WBC 18.35 H (4.50-10.00) 10*3/uL Immature Gran # 0.06 H (0.00-0.04) 10*3/uL Neutrophils # 15.43 H (1.80-7.70) 10*3/uL Monocytes # 1.71 H (0.20-1.00) 10*3/uL Eosinophils # 0.02 L (0.04-0.35) 10*3/uL APTT 44.3 H (22.0-30.0) sec Potassium 5.3 H (3.5-5.1) mmol/L BUN 32 H (7-17) mg/dL Creatinine 1.24 H (0.52-1.04) mg/dL Glucose 109 H (74-99) mg/dL
[2024-10-11] MEDS: ATORVASTATIN 40 MG TAB PO SCH (09:08)
[2024-10-11] MEDS: SODIUM CHLORIDE 0.9% 1,000 ML IV ONE (09:08)
[2024-10-11] MEDS: LEVOFLOXACIN 500MG-D5W PMX 500 MG in DEXTROSE/WATER 1 100ML.BAG IVPB SCH (10:27)
[2024-10-11] MEDS: SODIUM ZIRCONIUM CYCLOSILICATE 10 GM PACKET PO SCH (10:29)
--- NOTE | 2024-10-11 11:27 | P.NPCON ---
History of Present Illness - Reason for Consult acute renal failure - History of Present Illness Patient is a 79-year-old female with history of hypertension, COPD, gastroesophageal reflux disease who is admitted to the hospital with complaints of chest pain associated with shortness of breath. Pain is worse on deep breathing mostly on the left breast area. History of incarcerated paraesophageal hiatal hernia. Patient did have a cardiac catheterization yesterday on 10/10/2024 which did not show any obstructive coronary artery disease. Serum creatinine was 0.89 on admission and increased to 1.24 today. Previous creatinine has been 0.9 to 1.2 mg/dL in November 2023 and August 2024 Blood pressure is not low in fact it is high. Bladder scan showed no urine retention. Status post IV fluids. Potassium has been elevated at 5.6 to 5.3 mEq/L. Patient states that her potassium has been elevated for few years now. Calcium was also high at 11.1 and now down to 10.0. No history of use of calcium supplements Past Medical History Past Medical History: Asthma, COPD, Eye Disorder, GERD/Reflux, Hyperlipidemia, Hypertension, Sleep Apnea/CPAP/BIPAP Additional Past Medical History / Comment(s): "My food gets stuck between my breasts." osteoporosis. GLAUCOMA. Use CPAP. History of Any Multi-Drug Resistant Organisms: None Reported Additional Past Surgical History / Comment(s): BILATERAL BUNIONS REMOVED. BILATERAL EYELID LIFT. BILATERAL CATARACTS REMOVED/LENS IMPLANT. COLONOSCOPY, HIATAL HERNIA REPAIR X2, EGD, Colonoscopy Past Anesthesia/Blood Transfusion Reactions: No Reported Reaction Additional Past Anesthesia/Blood Transfusion Reaction / Comment(s): No hx of blood transfusion to date. Past Psychological History: No Psychological Hx Reported Smoking Status: Former smoker Past Alcohol Use History: Rare Additional Past Alcohol Use History / Comment(s): QUIT 2003. SMOKED .5PPD, started smoking at age 22's. Past Drug Use History: None Reported - Past Family History Mother Family Medical History: No Reported History Medications and Allergies Home Medications Medication Instructions Recorded Confirmed Type Ergocalciferol [Vitamin D2 (1250 1,250 mcg PO MO 08/05/23 10/09/24 History Mcg = 12474 Iu)] Fluticasone/Umeclidin/Vilanter 1 puff INHALATION RT-DAILY 08/05/23 10/09/24 History [Trelegy Ellipta 200-62.5-25] Latanoprost Ophth [Xalatan 0.005%] 1 drops BOTH EYES HS 08/05/23 10/09/24 History Montelukast Sodium 10 mg PO DAILY 08/05/23 10/09/24 History Pitavastatin Calcium 2 mg PO DAILY 08/05/23 10/09/24 History Raloxifene [Evista] 60 mg PO DAILY 08/05/23 10/09/24 History Acetaminophen Tab [Tylenol Tab] 1,000 mg PO Q6HR PRN #30 tablet 08/07/24 10/09/24 Rx amLODIPine [Norvasc] 10 mg PO DAILY 10/09/24 10/09/24 History Allergies Allergy/AdvReac Type Severity Reaction Status Date / Time aspirin Allergy Anaphylaxis Verified 10/09/24 16:06 Penicillins Allergy Anaphylaxis Verified 10/09/24 16:06 Physical Exam Vitals: Vital Signs Temp Pulse Pulse Resp BP Pulse Ox 10/11/24 09:26 98.0 F 98 16 156/93 95 10/11/24 03:35 93 16 123/80 95 10/10/24 23:45 89 17 144/86 95 10/10/24 19:25 97.5 F L 93 18 161/97 94 L 10/10/24 17:45 86 169/88 95 10/10/24 16:45 80 16 162/86 97 10/10/24 16:15 78 16 164/84 97 10/10/24 15:45 76 16 163/89 96 10/10/24 15:30 82 16 180/98 97 10/10/24 15:15 85 16 179/92 98 10/10/24 15:00 97.6 F 63 16 178/99 97 10/10/24 13:00 98.1 F 91 16 96 Intake and Output 10/10/24 10/11/24 10/11/24 22:59 06:59 14:59 Intake Total 20 10 10 Balance 20 10 10 Intake: IV 20 10 10 Invasive Line 1 20 10 10 Oral 0 Other: Voiding Method Toilet Toilet Toilet # Voids 2 1 Weight 54.3 kg Patient is awake, comfortable, no acute distress. 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 Acute kidney injury most likely associated with some degree of volume depletion with history of decreased intake over the last few days. Check UA. No evidence of urine retention on bladder scan. Check ultrasound of the kidne ys. Status post cardiac catheterization on 10/10/2024. 2. Mild hyperkalemia which is chronic. No evidence of urine retention. Patient is not maintained on GRASYON inhibitors or Aldactone. Denies use of NSAIDs. Rule out constipation. 3. Incarcerated paraesophageal hiatal hernia 4. Chest pain with elevated troponin status post cardiac catheterization on 10/10/2024 with no evidence of obstructive coronary artery disease 5. Hypertension maintained on Norvasc 6. Hypercalcemia associated with volume contraction, improved post IV hydration. No history of use of calcium supplements or Tums. Plan: Resume IV fluids Check UA Check ultrasound of the kidneys Maintain low potassium diet Discontinue Lokelma after 3 doses Avoid constipation Repeat labs in a.m. Thank you for the consultation. We will continue to follow the patient with you during her hospitalization.
--- NOTE | 2024-10-11 12:20 | P.PN ---
Subjective HISTORY OF PRESENT ILLNESS: This is a 79-year-old female with a past medical history significant for hypertension, hyperlipidemia, obstructive sleep apnea, and recent hiatal hernia surgery. Patient follows in the office with Dr. Solis. We have been asked to see the patient in consultation for elevated troponins. Patient examined at the bedside in the emergency room. Patient states that she underwent hiatal hernia surgery in August 2024. She states this was the second time she is underwent hiatal hernia repair. Patient reported that for the past 2 nights she has been having nausea and gas pain. She also reports pain in her chest that goes into her neck, shoulder, and back. She states the pain has been constant for the past 2 days. She also reports the pain is worse with deep inspiration. She continues to report mild chest discomfort at the time of examination. DIAGNOSTICS: - EKG reveals sinus mechanism with no signs of acute ischemia. - Chest xray negative for acute process. Large hiatal hernia with air-fluid levels -Chest CT: Mild coronary artery calcifications present. Large hiatal hernia which may involve the hernia through the diaphragm. The inlet from the esophagus and the outlet into the distal stomach are hard to track. However no suspicious changes to suggest ischemic changes identified at this time. 1 cm borderline enlarged lymph nodes within the mediastinum - Laboratory data: WBC 15.87. Hemoglobin 14.1. Platelet count 158. Sodium 137. Potassium 4.6. BUN 19. Creatinine 0.94. Magnesium 2.0. proBNP 1900. Troponin 0.012. 0.041. 0.055. - Current home cardiac medications include amlodipine 10 mg daily and Pitavastatin 2 mg daily. - Most recent echocardiogram obtained in September 2023 revealing ejection fraction 50%, mild concentric LVH, trace to mild AR, moderate MR, moderate to severe TR - Cardiac catheterization history: Patient denies 10/10/2024 Patient is status post cardiac catheterization with Dr. Reis revealing mild obstructive disease in the mid LAD and proximal and mid RCA. Right dominant system. Low LVEDP. Patient examined this morning to bedside. Patient denies any further episodes of chest pain or pressure. She currently denies shortness of breath. She reports improvement in her abdominal pain. Creatinine today increased to 1.2. Patient has been given IV fluid bolus per nursing. PHYSICAL EXAM: VITAL SIGNS: Reviewed. GENERAL: Well-developed in no acute distress. HEENT: Head is normocephalic. Pupils are equal, round. Sclerae anicteric. Mucous membranes of the mouth are moist. Neck supple. No JVD or thyromegaly LUNGS: Respirations even and unlabored. Lungs essentially clear to auscultation bilaterally. HEART: Regular rate and rhythm. S1 and S2 heard. ABDOMEN: Soft. Nondistended. Nontender. EXTREMITIES: Normal range of motion. No clubbing or cyanosis. Peripheral pulses intact. No lower extremity edema NEUROLOGIC: Awake and alert. Oriented x 3. ASSESSMENT: Chest pain with typical and atypical features with mild troponin elevation, type II TN, status post cardiac catheterization revealing mild obstructive disease in the mid LAD and proximal and mid RCA History of hiatal hernia surgery x 2, most recently in August 2024 Nausea Hypertension Hyperlipidemia Obstructive sleep apnea History of asthma History of nicotine dependence, quit smoking 10 years ago Reported anaphylactic reaction to aspirin PLAN: 2D echo has been ordered. Await results. Patient started on IV fluids. Monitor kidney function. Continue current cardiac medications Patient with anaphylactic reaction to aspirin in the past Patient is scheduled to undergo surgery tomorrow with Dr. Prakash. No absolute contraindications from a cardiac standpoint for patient to proceed. Further recommendations pending patient course Nurse practitioner note has been reviewed by physician. Signing provider agrees with the documented findings, assessment, and plan of care documented by BOARDER MACHINE as a scribe. Objective - Vital Signs Vital signs: Vital Signs Temp 97.4 F L 10/11/24 11:21 Pulse 101 H 10/11/24 11:21 Resp 16 10/11/24 11:21 BP 141/86 10/11/24 11:21 Pulse Ox 96 10/11/24 11:21 FiO2 Intake & Output 10/10/24 10/11/24 10/11/24 18:59 06:59 18:59 Intake Total 310 20 10 Balance 310 20 10 Weight 55.338 kg 54.3 kg Intake: IV 310 20 10 Invasive Line 1 10 20 10 Oral 0 Other: Voiding Method Toilet Toilet Toilet # Voids 1 - Labs CBC & Chem 7: 10/11/24 06:07 10/11/24 06:07 Labs: Abnormal Lab Results - Last 24 Hours (Table) 10/11/24 10/11/24 Range/Units 06:07 06:07 WBC 18.35 H (4.50-10.00) 10*3/uL Immature Gran # 0.06 H (0.00-0.04) 10*3/uL Neutrophils # 15.43 H (1.80-7.70) 10*3/uL Monocytes # 1.71 H (0.20-1.00) 10*3/uL Eosinophils # 0.02 L (0.04-0.35) 10*3/uL Potassium 5.3 H (3.5-5.1) mmol/L BUN 32 H (7-17) mg/dL Creatinine 1.24 H (0.52-1.04) mg/dL Glucose 109 H (74-99) mg/dL
--- NOTE | 2024-10-11 12:22 | US ---
EXAMINATION TYPE: US kidneys/renal and bladder DATE OF EXAM: 10/11/2024 Exam done portable COMPARISON: US 2023 CLINICAL INDICATION: Female, 79 years old with history of kenna; TECHNIQUE: Grayscale imaging of the bilateral kidneys and urinary bladder: FINDINGS: EXAM MEASUREMENTS: Right Kidney: 8.4 x 4.1 x 4.1 cm Left Kidney: 7.5 x 4.3 x 3.5 cm Right Kidney: wnl Left Kidney: limited visualization due to patient's left flank pain and unable to roll Bladder: wnl Bilateral Jets seen: yes IMPRESSION: No ultrasound abnormality of the kidneys evident. [facility], , 10/11/2024 12:20 PM
[2024-10-11] MEDS: metroNIDAZOLE-NS PMX 500 MG in SALINE 1 100ML.BAG IVPB SCH ×2 (13:00→20:39)
[2024-10-11] MEDS: SODIUM CHLORIDE 0.45% 1,000 ML IV SCH (14:21)
[2024-10-11 21:41] LABS: Appearance,Urine Cloudy (Clear); Bacteria,Urine Rare /hpf; Bilirubin,Urine Negative (Negative); Blood,Urine Negative (Negative); Color,Urine Yellow; Glucose,Urine (UA) Negative (Negative); Ketones,Urine 1+ (Negative); Leukocyte Esterase,Urine Large (Negative); Mucus,Urine Rare /hpf; Nitrite,Urine Negative (Negative); Protein,Urine Trace (Negative); RBC,Urine 6 /hpf (0-5); Specific Gravity,Urine 1.034 (1.001-1.035); Squamous Epithelial Cell,Urine 2 /hpf (0-4); Urobilinogen,Urine <2.0 mg/dL (<2.0); WBC,Urine 96 /hpf (0-5)
--- NOTE | 2024-10-11 22:27 | P.PN ---
Subjective Progress Note Date: 10/11/24 Patient is evaluated today ambulating in the room. She continues to report significant discomfort on her left upper abdominal quadrant. Patient underwent cardiac catheterization which reveals mild nonobstructive coronary artery disease. She is currently pending echocardiogram and further recommendations from cardiology's perspective. She remains on IV levofloxacin and IV metronidazole patient is scheduled to undergo robotic hiatal hernia repair on 10/[address] Prakash. Labs today reveal a white blood cell count of 18.35, sodium 139, potassium 5.3, BUN of 32 creatinine of 1.24. Her urinalysis was mildly abnormal. Review of Systems Constitutional: Denied any fatigue denied any fever. Cardio vascular: denied any chest pain, palpitations Gastrointestinal: denied any nausea, vomiting, diarrhea Pulmonary: Denied any shortness of breath cough Neurologic denied any new focal deficits All inpatient medications were reviewed and appropriate changes in these medications as dictated in the interval history and assessment and plan. PHYSICAL EXAMINATION: GENERAL: The patient is alert and oriented x3, not in any acute distress. Well developed, well nourished. HEENT: Pupils are round and equally reacting to light. EOMI. No scleral icterus. No conjunctival pallor. Normocephalic, atraumatic. No pharyngeal erythema. No thyromegaly. CARDIOVASCULAR: S1 and S2 present. No murmurs, rubs, or gallops. PULMONARY: Chest is clear to auscultation, no wheezing or crackles. ABDOMEN: Soft, nontender, nondistended, normoactive bowel sounds. No palpable organomegaly. MUSCULOSKELETAL: No joint swelling or deformity. EXTREMITIES: No cyanosis, clubbing, or pedal edema. NEUROLOGICAL: Gross neurological examination did not reveal any focal deficits. SKIN: No rashes. Assessment and plan Chest pain, atypical, acute coronary syndrome ruled out NSTEMI type II History of hiatal hernia surgery x 2 with most recent in August [address] this admission reveals a large hiatal hernia through the diaphragm and patient is scheduled to undergo robotic repair of this tomorrow with Dr. Gil Smith Hypertensive urgency Leukocytosis reactive Hypertension Hyperlipidemia COPD with no acute exacerbation Former smoker Sleep apnea Gastroesophageal reflux disease Hyperlipidemia GI prophylaxis Full code Continue IV metronidazole, IV levofloxacin Continue half-normal saline at 80 mL/h Pain management is on board with IV morphine and oral Ninole General Surgery following Pending echocardiogram Repeat blood work in the morning The impression and plan of care has been dictated by Merari Barrios Nurse Practitioner as directed. Dr. Renny MD I have performed a history and physical examination and medical decision making of this patient, discussed the same with the dictator, and agree with the dictators assessment and plan as written, documented as a scribe. Based on total visit time, I have performed more than 50% of this visit. Objective - Vital Signs Vital signs: Vital Signs Temp 97.4 F L 10/11/24 11:21 Pulse 101 H 10/11/24 11:21 Resp 16 10/11/24 11:21 BP 141/86 10/11/24 11:21 Pulse Ox 96 10/11/24 11:21 FiO2 Intake & Output 10/10/24 10/11/24 10/11/24 18:59 06:59 18:59 Intake Total 310 20 10 Balance 310 20 10 Weight 55.338 kg 54.3 kg Intake: IV 310 20 10 Invasive Line 1 10 20 10 Oral 0 Other: Voiding Method Toilet Toilet Toilet # Voids 1 - Labs CBC & Chem 7: 10/11/24 06:07 10/11/24 06:07 Labs: Abnormal Lab Results - Last 24 Hours (Table) 10/11/24 10/11/24 Range/Units 06:07 06:07 WBC 18.35 H (4.50-10.00) 10*3/uL Immature Gran # 0.06 H (0.00-0.04) 10*3/uL Neutrophils # 15.43 H (1.80-7.70) 10*3/uL Monocytes # 1.71 H (0.20-1.00) 10*3/uL Eosinophils # 0.02 L (0.04-0.35) 10*3/uL Potassium 5.3 H (3.5-5.1) mmol/L BUN 32 H (7-17) mg/dL Creatinine 1.24 H (0.52-1.04) mg/dL Glucose 109 H (74-99) mg/dL Assessment and Plan Time with Patient: Less than 30
[2024-10-12 05:04] LABS: Basophils # (A) 0.07 10*3/uL (0.00-0.10); Basophils % (A) 0.4 %; Eosinophils # (A) 0.03 10*3/uL (0.04-0.35); Eosinophils % (A) 0.2 %; HCT 39.7 % (37.2-46.3); HGB 12.8 g/dL (12.0-15.0); Lymphocytes # (A) 0.91 10*3/uL (0.90-5.00); Lymphocytes % (A) 4.8 %; MCH 31.2 pg (27.0-32.0); MCHC 32.2 g/dL (32.0-37.0); MCV 96.8 fL (80.0-97.0); Mean Platelet Volume 11.8 fL (9.5-12.2); Monocytes # (A) 2.72 10*3/uL (0.20-1.00); Monocytes % (A) 14.3 %; Neutrophils # (A) 15.23 10*3/uL (1.80-7.70); Neutrophils % (A) 79.9 %; Platelet Count 175 10*3/uL (140-440); RDW 13.7 % (11.5-14.5); WBC 19.04 10*3/uL (4.50-10.00)
[2024-10-12 05:25] LABS: African American GFR (CKD) 60 (>60 ml/min/1.73 sqM); Amylase 50 U/L (30-110); Anion Gap 11 mmol/L; Blood Urea Nitrogen 35 mg/dL (7-17); Calcium 9.2 mg/dL (8.4-10.2); Carbon Dioxide 17 mmol/L (22-30); Chloride 107 mmol/L (98-107); Glucose 85 mg/dL (74-99); Lipase 92 U/L (23-300); Non-African American GFR(CKD) 52 (>60 ml/min/1.73 sqM); Potassium 5.3 mmol/L (3.5-5.1); Sodium 135 mmol/L (137-145)
[2024-10-12] MEDS: LEVOFLOXACIN 250MG-D5W PMX 250 MG in DEXTROSE/WATER 1 50ML.BAG IVPB SCH (07:48)
[2024-10-12] MEDS: SODIUM CHLORIDE 0.9% 1,000 ML IV ONE ×2 (10:34→16:00)
--- NOTE | 2024-10-12 11:59 | P.PN ---
Subjective Patient is seen for follow-up for acute kidney injury and hyperkalemia. Patient states that her potassium has been borderline elevated as outpatient for a long time. No urine retention Maintained on IV fluids. Potassium is 5.3 today and serum creatinine at 1.0 Objective - Vital Signs Vital signs: Vital Signs Temp 98.0 F 10/12/24 07:45 Pulse 90 10/12/24 07:45 Resp 19 10/12/24 07:45 BP 129/84 10/12/24 07:45 Pulse Ox 91 L 10/12/24 07:57 FiO2 Intake & Output 10/11/24 10/12/24 10/12/24 18:59 06:59 18:59 Intake Total 10 40 Output Total 100 Balance 10 -60 Weight 55.1 kg Intake: IV 10 40 Invasive Line 1 10 20 Invasive Line 2 20 Output: Urine 100 Other: Voiding Method Toilet Toilet # Voids 1 1 - Exam Patient is awake, comfortable, no acute distress. Examination of the heart S1 and S2 Examination of the lungs bilateral breath sounds are heard Abdomen is soft nontender Examination of lower extremity shows no evidence of edema OUTREACH REP exam grossly intact - Labs CBC & Chem 7: 10/12/24 04:50 10/12/24 04:50 Labs: Abnormal Lab Results - Last 24 Hours (Table) 10/11/24 10/12/24 10/12/24 Range/Units 20:44 04:50 04:50 WBC 19.04 H (4.50-10.00) 10*3/uL Immature Gran # 0.08 H (0.00-0.04) 10*3/uL Neutrophils # 15.23 H (1.80-7.70) 10*3/uL Monocytes # 2.72 H (0.20-1.00) 10*3/uL Eosinophils # 0.03 L (0.04-0.35) 10*3/uL Sodium 135 L (137-145) mmol/L Potassium 5.3 H (3.5-5.1) mmol/L Carbon Dioxide 17 L (22-30) mmol/L BUN 35 H (7-17) mg/dL Urine Appearance Cloudy H (Clear) Urine Protein Trace H (Negative) Urine Ketones 1+ H (Negative) Ur Leukocyte Esterase Large H (Negative) Urine RBC 6 H (0-5) /hpf Urine WBC 96 H (0-5) /hpf Urine Bacteria Rare H (None) /hpf Urine Mucus Rare H (None) /hpf Assessment and Plan Assessment: 1. Acute kidney injury most likely associated with some degree of volume deplet ion with history of decreased intake over the last few days. UA shows trace protein. No evidence of urine retention on bladder scan. Ultrasound of the kidneys is unremarkable. Status post cardiac catheterization on 10/10/2024. 2. Mild hyperkalemia which is chronic. No evidence of urine retention. Patient is not maintained on GRAYSON inhibitors or Aldactone. Denies use of NSAIDs. Rule out constipation. 3. Incarcerated paraesophageal hiatal hernia 4. Chest pain with elevated troponin status post cardiac catheterization on 10/10/2024 with no evidence of obstructive coronary artery disease 5. Hypertension maintained on Norvasc 6. Hypercalcemia associated with volume contraction, improved post IV hydration. No history of use of calcium supplements or Tums. 7. Metabolic acidosis nongap secondary to acute kidney injury and IV fluids Plan: Continue IV fluids, changed to IV bicarb Repeat labs in a.m. Continue low potassium diet
--- NOTE | 2024-10-12 12:05 | P.PN ---
Subjective Progress Note Date: 10/12/24 CHIEF COMPLAINT: Chest pain HISTORY OF PRESENT ILLNESS: The patient is a 79-year-old female with history of hiatal hernia status post repair x 2 comes in with acute chest pain. She still reports persistent left sided chest and back pain. She reports feeling better today than upon admission. Patient at the time of assessment was also being assessed by cardiology team. No contraindications to proceeding with surgery risks verbally discussed. Patient also complete an echo from today. Patient still reports dysphagia. She has been sleeping with ice pack along the left chest and back. She was given 1 L bolus yesterday for dehydration. REVIEW OF ORGAN SYSTEMS: No shortness of breath. No fevers or chills. No productive sputum. PHYSICAL EXAM: VITALS: Reviewed CONSTITUTIONAL: Well developed and in no acute distress. EYES: Conjuctivae without sclera icterus. Extraocular movements grossly intact. HEAD, EARS, NOSE, THROAT: Moist buccal mucosa. Head is atraumatic, normocephalic. Hears conversational speech. No nasal drainage. RESPIRATORY: Non-labored respirations and equal bilateral excursions. No gross wheezes. CARDIOVASCULAR: Palpable 2+ radial pulses. ABDOMEN: Mild tenderness epigastrium and left chest wall. No peritonitis. MUSCULOSKELETAL: No clubbing cyanosis or edema SKIN: Warm and well perfused with good skin turgor. NEUROLOGIC: Cranial nerves II through XII grossly intact. No focal or lateralizing signs. PSYCH: Appropriate affect. Alert and oriented to person, place and time. Displays appropriate insight. CLINCAL LABS: Reviewed. WBC elevated from 13,000-18,000, today over 19,000. Potassium persistently elevated 5.3. Hemoglobin down 14.4-12.8. Creatinine down 1.24-1.04. ASSESSMENT: 1. Atypical chest pain 2. Gastroesophageal reflux disease 3. Hypertensive heart disease 4. Osteoporosis 5. Hyperlipidemia 6. 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 Obstructive sleep apnea 8. Nausea 9. Elevated troponins for acute UT, excluded 10. Incarcerated paraesophageal hiatal hernia with atypical chest pain 11. Acute kidney failure 12. Dehydration 13. Leukocytosis PLAN: 1. As she continues to have atypical chest pain including dysphagia, she has a symptomatic recurrent hiatal hernia for which urgent surgical invention was described. 2. Patient reports moderate thirst and additional fluid bolus was given today. 3. Patient has been started on IV antibiotics for leukocytosis 4. She is elevated risk for complications due to dysphagia, leukocytosis, atypical chest Dictation was produced using [employer] dictation software. Please excuse any grammatical, word or spelling errors. Objective - Vital Signs Vital signs: Vital Signs Temp 98.0 F 10/12/24 07:45 Pulse 90 10/12/24 07:45 Resp 19 10/12/24 07:45 BP 129/84 10/12/24 07:45 Pulse Ox 91 L 10/12/24 07:57 FiO2 Intake & Output 10/11/24 10/12/24 10/12/24 18:59 06:59 18:59 Intake Total 10 40 Output Total 100 Balance 10 -60 Weight 55.1 kg Intake: IV 10 40 Invasive Line 1 10 20 Invasive Line 2 20 Output: Urine 100 Other: Voiding Method Toilet Toilet # Voids 1 1 - Labs CBC & Chem 7: 10/12/24 04:50 10/12/24 04:50 Labs: Abnormal Lab Results - Last 24 Hours (Table) 10/11/24 10/12/24 10/12/24 Range/Units 20:44 04:50 04:50 WBC 19.04 H (4.50-10.00) 10*3/uL Immature Gran # 0.08 H (0.00-0.04) 10*3/uL Neutrophils # 15.23 H (1.80-7.70) 10*3/uL Monocytes # 2.72 H (0.20-1.00) 10*3/uL Eosinophils # 0.03 L (0.04-0.35) 10*3/uL Sodium 135 L (137-145) mmol/L Potassium 5.3 H (3.5-5.1) mmol/L Carbon Dioxide 17 L (22-30) mmol/L BUN 35 H (7-17) mg/dL Urine Appearance Cloudy H (Clear) Urine Protein Trace H (Negative) Urine Ketones 1+ H (Negative) Ur Leukocyte Esterase Large H (Negative) Urine RBC 6 H (0-5) /hpf Urine WBC 96 H (0-5) /hpf Urine Bacteria Rare H (None) /hpf Urine Mucus Rare H (None) /hpf
--- NOTE | 2024-10-12 12:54 | P.PN ---
Subjective HISTORY OF PRESENT ILLNESS: This is a 79-year-old female with a past medical history significant for hypertension, hyperlipidemia, obstructive sleep apnea, and recent hiatal hernia surgery. Patient follows in the office with Dr. Solis. We have been asked to see the patient in consultation for elevated troponins. Patient examined at the bedside in the emergency room. Patient states that she underwent hiatal hernia surgery in August 2024. She states this was the second time she is underwent hiatal hernia repair. Patient reported that for the past 2 nights she has been having nausea and gas pain. She also reports pain in her chest that goes into her neck, shoulder, and back. She states the pain has been constant for the past 2 days. She also reports the pain is worse with deep inspiration. She continues to report mild chest discomfort at the time of examination. DIAGNOSTICS: - EKG reveals sinus mechanism with no signs of acute ischemia. - Chest xray negative for acute process. Large hiatal hernia with air-fluid levels -Chest CT: Mild coronary artery calcifications present. Large hiatal hernia which may involve the hernia through the diaphragm. The inlet from the esophagus and the outlet into the distal stomach are hard to track. However no suspicious changes to suggest ischemic changes identified at this time. 1 cm borderline enlarged lymph nodes within the mediastinum - Laboratory data: WBC 15.87. Hemoglobin 14.1. Platelet count 158. Sodium 137. Potassium 4.6. BUN 19. Creatinine 0.94. Magnesium 2.0. proBNP 1900. Troponin 0.012. 0.041. 0.055. - Current home cardiac medications include amlodipine 10 mg daily and Pitavastatin 2 mg daily. - Most recent echocardiogram obtained in September 2023 revealing ejection fraction 50%, mild concentric LVH, trace to mild AR, moderate MR, moderate to severe TR - Cardiac catheterization history: Patient denies 10/10/2024 Patient is status post cardiac catheterization with Dr. Reis revealing mild obstructive disease in the mid LAD and proximal and mid RCA. Right dominant system. Low LVEDP. Patient examined this morning to bedside. Patient denies any further episodes of chest pain or pressure. She currently denies shortness of breath. She reports improvement in her abdominal pain. Creatinine today increased to 1.2. Patient has been given IV fluid bolus per nursing. 10/11/2024 Patient examined this morning at the bedside. Patient is reporting left-sided chest discomfort. Denies SOB. Scheduled for surgery today with Dr. Prakash. PHYSICAL EXAM: VITAL SIGNS: Reviewed. GENERAL: Well-developed in no acute distress. HEENT: Head is normocephalic. Pupils are equal, round. Sclerae anicteric. Mucous membranes of the mouth are moist. Neck supple. No JVD or thyromegaly LUNGS: Respirations even and unlabored. Lungs essentially clear to auscultation bilaterally. HEART: Regular rate and rhythm. S1 and S2 heard. ABDOMEN: Soft. Nondistended. Nontender. EXTREMITIES: Normal range of motion. No clubbing or cyanosis. Peripheral pulses intact. No lower extremity edema NEUROLOGIC: Awake and alert. Oriented x 3. ASSESSMENT: Chest pain with typical and atypical features with mild troponin elevation, type II ME, status post cardiac catheterization revealing mild obstructive disease in the mid LAD and proximal and mid RCA History of hiatal hernia surgery x 2, most recently in August 2024 Nausea Hypertension Hyperlipidemia Obstructive sleep apnea History of asthma History of nicotine dependence, quit smoking 10 years ago Reported anaphylactic reaction to aspirin PLAN: 2D echo has been ordered. Await results. Continue current cardiac medications Patient with anaphylactic reaction to aspirin in the past Patient is scheduled to undergo surgery today with Dr. Prakash. No absolute contraindications from a cardiac standpoint for patient to proceed. Further recommendations pending patient course Nurse practitioner note has been reviewed by physician. Signing provider agrees with the documented findings, assessment, and plan of care documented by SENIOR UI WEB DEVELOPER as a scribe. Objective - Vital Signs Vital signs: Vital Signs Temp 98.0 F 10/12/24 07:45 Pulse 90 10/12/24 07:45 Resp 19 10/12/24 07:45 BP 129/84 10/12/24 07:45 Pulse Ox 91 L 10/12/24 07:57 FiO2 Intake & Output 10/11/24 10/12/24 10/12/24 18:59 06:59 18:59 Intake Total 10 40 Output Total 100 Balance 10 -60 Weight 55.1 kg Intake: IV 10 40 Invasive Line 1 10 20 Invasive Line 2 20 Output: Urine 100 Other: Voiding Method Toilet Toilet # Voids 1 1 - Labs CBC & Chem 7: 10/12/24 04:50 10/12/24 04:50 Labs: Abnormal Lab Results - Last 24 Hours (Table) 0410/12/24 10/12/24 Range/Units 20:44 04:50 04:50 WBC 19.04 H (4.50-10.00) 10*3/uL Immature Gran # 0.08 H (0.00-0.04) 10*3/uL Neutrophils # 15.23 H (1.80-7.70) 10*3/uL Monocytes # 2.72 H (0.20-1.00) 10*3/uL Eosinophils # 0.03 L (0.04-0.35) 10*3/uL Sodium 135 L (137-145) mmol/L Potassium 5.3 H (3.5-5.1) mmol/L Carbon Dioxide 17 L (22-30) mmol/L BUN 35 H (7-17) mg/dL Urine Appearance Cloudy H (Clear) Urine Protein Trace H (Negative) Urine Ketones 1+ H (Negative) Ur Leukocyte Esterase Large H (Negative) Urine RBC 6 H (0-5) /hpf Urine WBC 96 H (0-5) /hpf Urine Bacteria Rare H (None) /hpf Urine Mucus Rare H (None) /hpf
--- NOTE | 2024-10-12 13:48 | P.PN ---
Subjective Progress Note Date: 10/12/24 History of present illness; Patient is 79-year-old female with history of hypertension, hyperlipidemia, JOSEPHINE, recent hiatal hernia surgery who presented with shortness of breath and chest pain. Patient states 2 nights ago she began having constant substernal pain radiating to left arm left neck and left shoulder. Pain described as knifelike and back and dull pain in chest. Worse with deep inspiration. Currently, this pain is still present. She denies orthopnea. Associated symptoms of nausea, shortness of breath. She tried Tums which did not improve her symptoms. She endorses history of 2 hiatal hernia surgeries in the past year. No other symptoms at this time. REVIEW OF SYSTEMS: Pertinent positives and negatives noted in HPI. 10/12/2024 Patient seen and examined at bedside. Patient scheduled for surgery today. She does continue to have left-sided flank pain with back pain. She is being seen by nephrology for EBONI and continues on D5W with bicarb. PHYSICAL EXAMINATION: Vitals reviewed GENERAL: Resting in bed. EYES: PERRL, no scleral injection or icterus. No gross vision loss. HENT: Normocephalic, atraumatic, hearing grossly intact, moist mucous membranes NECK: No tracheal deviation, full range of motion. CARDIOVASCULAR: S1 and S2 present. No murmurs, rubs, or gallops. PULMONARY: Chest is clear to auscultation, no wheezing, rhonchi, or crackles. ABDOMEN: Soft, nontender, nondistended. No palpable organomegaly. MUSCULOSKELETAL: No apparent joint swelling and deformities. EXTREMITIES: No apparent cyanosis, clubbing. No pedal edema. NEUROLOGICAL: Alert and oriented. Gross neurological examination with no apparent focal deficits. SKIN: No apparent rashes. Findings: LabsWBC 19.0, sodium 135, potassium 5.3, bicarb 17, BUN 35, creatinine 1.04 No new imaging Assessment and Plan: In summary, patient is 79-year-old female with history of hypertension, hyperlipidemia, JOSEPHINE, recent hiatal hernia surgery who presented with shortness of breath and chest pain. #History of hiatal hernia surgery 2x, most recent August 2024 CT chest with large hiatal hernia through diaphragm Chest x-ray with air-fluid level Pantoprazole twice daily and Maalox - Continue IV metronidazole, IV levofloxacin Surgery following, surgery planned today # Chest pain with typical and atypical features #NSTEMI, type II, rule out CAD Initial troponin <0.012 => 0.041 => 0.055 Increase atorvastatin 40 mg given Continue metoprolol tartrate 25 mg twice daily Patient unable to tolerate aspirin due to anaphylaxis Echo results pending Cardiac cath completed, nonobstructive disease in mid LAD and proximal and mid RCA, right dominance Cardiology following #EBONI due to volume depletion #Metabolic acidosis non-anion gap Continue IV D5W IV bicarb Neurology following #Mild hyperkalemia, chronic Lokelma for 3 doses IV fluids of above Neurology following #Leukocytosis, suspect UTI UA significant for large leukocyte esterase Continue above antibiotics #Hypertensive urgency, resolved Resume home amlodipine Chronic Medical Conditions #Essential hypertension # Hyperlipidemia #COPD Resume home medication DVT ppx: Subcu Lovenox 40 MEQ daily Code status: Full code F: IV fluids E: Lokelma for hyperkalemia N: N.p.o. for now A: Ambulatory Anticipated discharge place: Home Anticipated discharge time: Pending clinical course Dr. Lawson seen patient with resident, present during exam, and agreed with findings. Dictation was produced using Adype dictation software. Please excuse any grammatical, word or spelling errors. Objective - Vital Signs Vital signs: Vital Signs Temp 98.0 F 10/12/24 07:45 Pulse 90 10/12/24 07:45 Resp 19 10/12/24 07:45 BP 129/84 10/12/24 07:45 Pulse Ox 91 L 10/12/24 07:57 FiO2 Intake & Output 10/11/24 10/12/24 10/12/24 18:59 06:59 18:59 Intake Total 10 40 Output Total 100 Balance 10 -60 Weight 55.1 kg Intake: IV 10 40 Invasive Line 1 10 20 Invasive Line 2 20 Output: Urine 100 Other: Voiding Method Toilet Toilet # Voids 1 1 - Labs CBC & Chem 7: 10/12/24 04:50 10/12/24 04:50 Labs: Abnormal Lab Results - Last 24 Hours (Table) 10/11/24 10/12/24 10/12/24 Range/Units 20:44 04:50 04:50 WBC 19.04 H (4.50-10.00) 10*3/uL Immature Gran # 0.08 H (0.00-0.04) 10*3/uL Neutrophils # 15.23 H (1.80-7.70) 10*3/uL Monocytes # 2.72 H (0.20-1.00) 10*3/uL Eosinophils # 0.03 L (0.04-0.35) 10*3/uL Sodium 135 L (137-145) mmol/L Potassium 5.3 H (3.5-5.1) mmol/L Carbon Dioxide 17 L (22-30) mmol/L BUN 35 H (7-17) mg/dL Urine Appearance Cloudy H (Clear) Urine Protein Trace H (Negative) Urine Ketones 1+ H (Negative) Ur Leukocyte Esterase Large H (Negative) Urine RBC 6 H (0-5) /hpf Urine WBC 96 H (0-5) /hpf Urine Bacteria Rare H (None) /hpf Urine Mucus Rare H (None) /hpf
--- NOTE | 2024-10-12 13:52 | XR ---
EXAMINATION TYPE: XR chest 1V portable DATE OF EXAM: 10/12/2024 12:46 PM COMPARISON: 10/09/2024 CLINICAL INDICATION: Female, 79 years old with history of dyspnea, shortness of breath FINDINGS: Left margin entirely obscured by adjacent pleural parenchymal opacity. There is a large rounded lucen cy projecting at the left mid lung possibly related to air in the stomach. Some fluid meniscus extend s at the lateral aspect of the left upper chest wall. Right lung and pleural space appear clear. Unde rlying dextroconvex scoliosis. IMPRESSION: 1. Very large hiatal hernia, possibly enlarging paraesophageal hernia. Given the size, a greater degr ee of the stomach may have herniated into the chest. A secondary gastric outlet obstruction is a poss ibility given the new findings. 2. Changes extend up to fill most of the left hemithorax. There is underlying left pleural effusion. [facility], Workstation: [facility], 10/12/2024 1:50 PM
[2024-10-12] MEDS: DEXTROSE 5% IN WATER 1,000 ML with SODIUM BICARB (1 MEQ/ML) 150 ML IV SCH (14:09)
--- NOTE | 2024-10-12 14:10 | CA ---
Transthoracic Echo Report Name: Ramya Jackson Age: 79 Gender: F : 1945 Exam Date: 10/12/2024 10:02 Exam Location: [facility] Ht (in): Wt (lb): Ordering Physician: Yamila Estrada Attending/Referring Phys: [id number], Natalie Rug Touch Up Painter Michelle Wade, RDCS Procedure CPT: Indications: LV function, abnormal trops, CP Cardiac Hx: Technical Quality: Very technically difficult study Contrast 1: Total Dose (mL): Contrast 2: Total Dose (mL): MEASUREMENTS (Male / Female) Normal Values 2D ECHO LV Diastolic Diameter PLAX 2.7 cm 4.2 - 5.9 / 3.9 - 5.3 cm IVS Diastolic Thickness 1.0 cm 0.6 - 1.0 / 0.6 - 0.9 cm LVPW Diastolic Thickness 1.0 cm 0.6 - 1.0 / 0.6 - 0.9 cm LV Relative Wall Thickness 0.7 RV Internal Dim ED PLAX 2.0 cm LV Diastolic Volume MOD 4C 11.0 cm??? LV Systolic Volume MOD 4C 4.7 cm??? LV Ejection Fraction MOD 4C 57.5 % LV Diastolic Length 4C 4.4 cm LV Systolic Length 4C 4.0 cm M-MODE Aortic Root Diameter MM 3.0 cm LA Systolic Diameter MM 3.1 cm LA Ao Ratio MM 1.0 AV Cusp Separation MM 1.5 cm DOPPLER AV Peak Velocity 173.7 cm/s AV Peak Gradient 12.1 mmHg AV Mean Velocity 169.4 cm/s AV Mean Gradient 12.6 mmHg AV Velocity Time Integral 58.6 cm TR Peak Velocity 235.9 cm/s TR Peak Gradient 22.3 mmHg Right Atrial Pressure 10.0 mmHg Pulmonary Artery Systolic Pressu 32.3 mmHg Right Ventricular Systolic Press 32.3 mmHg FINDINGS Left Ventricle Left ventricular ejection fraction is estimated at 55-60 %. Mildly increased septal wall thickness. Normal left ventricular systolic function. Left ventricular cavity size normal. Right Ventricle right ventricle not well visualized. . Right ventricular systolic pressure within normal limits. Right Atrium Normal right atrial size. Left Atrium Normal left atrial size. Mitral Valve Structurally normal mitral valve. Trace mitral regurgitation. No mitral stenosis. Aortic Valve Aortic valve not well visualized. No aortic stenosis. No aortic regurgitation. Tricuspid Valve Structurally normal tricuspid valve. Moderate tricuspid regurgitation. No tricuspid stenosis. Pulmonic Valve Structurally normal pulmonic valve. Trace pulmonic regurgitation. No pulmonic stenosis. Pericardium Echo free space anterior to the right ventricle likely represents a fat pad. No pericardial or pleural effusion. Aorta Normal size aortic root and proximal ascending aorta. CONCLUSIONS Very technically difficult study. Poor acoustic window and off axis views LVEF appears to be preserved with EF of 55% No obvious regional wall motion abnormality No significant valve dysfunction however study is not very sensitive Previewed by: Dr Francois Calderon (Electronically Signed) Final Date: 12 October 2024 14:09
[2024-10-12 15:34] LABS: Influenza A Not Detected (Not Detectd); Influenza B Not Detected (Not Detectd); RSV Not Detected (Not Detectd)
[2024-10-12] MEDS ORDERED: NEOSTIGMINE 1 MG/ML 10 ML VIAL ONE (16:04)
[2024-10-12] MEDS ORDERED: fentaNYL (PF) 50 MCG/ML 2 ML AMP ONE (16:04)
[2024-10-12] MEDS ORDERED: GLYCOPYRROLATE 0.2 MG/ML 2 ML VIAL ONE (16:04)
[2024-10-12] MEDS ORDERED: SUGAMMADEX SODIUM 100 MG/ML SYR IV ONE (16:04)
[2024-10-12] MEDS ORDERED: LIDOCAINE 1% INJ 10MG/ML (20 ML MDV) ONE (16:04)
[2024-10-12] MEDS ORDERED: PROPOFOL 10 MG/ML 20 ML VIAL IV ONE (16:04)
[2024-10-12] MEDS ORDERED: ROCURONIUM 10 MG/ML (5 ML VIAL) IV ONE (16:04)
[2024-10-12] MEDS ORDERED: PHENYLEPHRINE 10 MG/ML VIAL ONE (16:04)
[2024-10-12] MEDS ORDERED: SUCCINYLCHOLINE CHLORIDE 200 MG/10 ML VIAL IV ONE (16:04)
[2024-10-12] MEDS: DEXAMETHASONE SOD PHOSPHATE 4 MG/ML 1 ML VIAL IVP STA (16:05)
[2024-10-12] MEDS: ONDANSETRON 4 MG/2 ML VIAL IVP PRN (16:06)
[2024-10-12] MEDS: LIDOCAINE 1%-EPI 1:100,000 20 ML VIAL SQ ONE (16:25)
[2024-10-12] MEDS: LACTATED RINGERS 1,000 ML IV ONE (18:46)
[2024-10-12] MEDS ORDERED: HYDROmorphone 2 MG/ML 1 ML SYRINGE IVP PRN (19:29)
--- NOTE | 2024-10-12 19:42 | P.OP ---
Date of Procedure: 10/12/24 Description of Procedure: SURGEON: TRE NESS MD PREOPERATIVE DIAGNOSES: 1. Atypical chest pain due to recurrent incarcerated paraesophageal hiatal hernia 2. Leukocytosis POSTOPERATIVE DIAGNOSES: 1. Strangulated recurrent incarcerated paraesophageal hiatal hernia, 9 x 4 cm 2. Gastric infarction 3. Gastric ischemia 4. Gastric volvulus with infarction OPERATION: 1. Robotic-assisted da Rolando Xi laparoscopic reduction of organoaxial gastric volvulus 2. Robotic-assisted da Rolando Xi laparoscopic repair of strangulated recurrent paraesophageal hiatal hernia, 9 x 4 cm, with [place] Biopatch A 8 x 8 cm. 3. Intraoperative esophagogastroduodenoscopy with decompression gastric stomach 1.5 L 4. Robotic-assisted da Rolando Xi laparoscopic drainage of left pleural effusion, 200 cc 5. Robotic-assisted da Rolando Xi laparoscopic partial gastrectomy for gastric infarction, 21 x 6 cm ANESTHESIA: General with local anesthetic. ESTIMATED BLOOD LOSS: 5 mL Pathology: Partial gastrectomy for gastric infarction COMPLICATIONS: None. Condition: stable Disposition: floor FINDINGS: 1. Gastric infarct involving gastric fundus, greater curvature of the stomach as a lead point of recurrent paraesophageal hiatal hernia 2. Organoaxial gastric volvulus with strangulation requiring partial gastrectomy 3. Upper endoscopy confirmed full-thickness gastric infarct requiring partial gastrectomy involving the gastric fundus 4. Moderately enlarged stomach allowing partial gastrectomy without sequela 5. Immediate resolution of hypoxia after reduction of paraesophageal hiatal hernia involving the left lung 6. Decompression and reinsufflation of left lung using red 8Fr catheter and suction 7. Patient admitted with reported after surgery that atypical chest pain epigastric pain and breathing had resolved 8. Follow-up x-ray demonstrated reexpansion of the left lung 9. Tisseel applied along staple line INDICATIONS: The patient is a 79-year-old female who presented with atypical chest pain. Patient underwent cardiac catheterization followed by echo earlier this morning. She continued to complain of left chest pain with radiation to the back with new leukocytosis concerning for gastric ischemia. Urgent surgical invention described. Benefits and risks including bleeding, infection, recurrence, dysphagia, injury to the lung, need for further surgery was described at length. Informed consent was obtained. DESCRIPTION: The patient was brought into the operating room and placed in supine position. Preoperatively she had received heparin subcutaneously for DVT prophylaxis. After general induction, the abdomen was prepped and draped in standard sterile fashion. Akins catheter was placed. Ioban draping was placed along the abdomen. A timeout protocol was confirmed with the surgical team, for which the patient's name, procedure to be performed including DVT prophylaxis with bilateral SCDs, and preoperative antibiotics were also confirmed. A robotic da Rolando Xi system was prepped and primed. At 12 cm from the xiphoid to just below the umbilicus, proposed port sites were marked with indelible marker along the left axillary line, left mid-clavicular line with each ports were marked 10 cm from each other. A 5 mm 0 degrees laparoscopic trocar entry was performed along the left upper quadrant. The abdomen was insufflated to 15 mmHg pressure he tolerated well. Diagnostic laparoscopy demonstrated no injury to bowel, viscera, or mesentery. Peritoneal adhesions were confirmed along the left upper quadrant. The liver surface was unremarkable. No injury had occurred to the small bowel or viscera. Along the hiatus, a defect was found anteriorly. Next, one 8 mm robotic port was placed along the right upper abdomen. An 8-mm port was were placed along the left lateral abdominal wall. The camera 8-mm port was maintained along the epigastrium via the hernia defect. Another 12 mm port was placed along the left upper abdominal wall after exchanging the 5 mm port. Please note that the ports were placed at least 20 cm away from the target anatomy. Care was taken to check that each robotic arm were safely away from collision with the bed or the patient. At the epigastrium, a medium sized Best liver retractor was placed under direct visualization with the Iron Strategic Account Manager placed over the right shoulder of the patient. The additional third robotic arm was placed along the left aspect of the patient. The patient was repositioned in reverse Trendelenburg position at 14-degrees after lowering the bed. The robot was docked along the left side of the patient. Using a grasper for arm 3, a grasper for arm 1, including vessel sealer for arm 2, the robotic system was docked and primed as described. Instruments were interchanged by the assistant professor of religion. I had sat at the console. Initial attention was brought to the anterior hiatus where blunt dissection was performed using a grasper including vessel sealer. The previous fundoplasty was carefully dissected free circumferentially whereby moderate adhesions were confirmed. The dissection was carried well into the mediastinum where the hiatal hernia sac was found causing a retraction of the distal esophagus into the thoracic cavity. Moderate dissection was performed to free the Enrique fundoplasty. An incarcerated recurrent midline paraesophageal hiatal hernia 3 x 4 cm involving previous fundoplication was identified. Severe perigastric adhesions including along the liver surface requiring 2 hours of dissection was performed. The recurrent incarcerated hiatal hernia of 4 cm intraesophageal length was confirmed. The left and right crura was identified. Significant mobilization of the distal to mid esophagus into the mediastinum was performed. Circumferentially, the hernia sac was divided and from the esophagus including the previous distal fundoplasty. The sutures corresponding to the fundoplasty were divided using vessel sealer. Extended dissection occurred for 2 hours as the stomach was densely adherent. The measured defect was 4 cm axial length and 3 cm in width. After extensive dissection, the distal esophagus at least 2 cm was brought into the abdominal cavity. Once the hiatus and crura was dissected, 2-0 VLOC suture was placed as a running suture to re-approximate the diaphragmatic hiatus posteriorly including anteriorly leaving a 2 cm aperture otherwise corresponding to a 65-44-Bqelfc bougie size. To buttress the repair, a [place] Biopatch A was prepared along the back table and cut in a christie-hole fashion as to reinforce the repair as an underlay. The mesh was placed along the crural repair and tagged using horizontal mattress sutures using 2-0 VLOC. I went to the head of the bed to perform intraoperative esophagogastroduodenoscopy. An Olympus gastroscope was passed through posterior oropharynx, where the GE junction was found distal to the diaphragmatic hiatus. The intra-abdominal esophageal length obtained during the case was over 2 cm. The stomach was entered. The duodenum was unremarkable. Retroflexion of the scope confirmed a Hill grade 1 lower esophageal valve. The stomach had been desufflated. No evidence of leaks were found. No full thickness mucosal defects of the esophagus or stomach were identified. This concluded the endoscopic portion of the case. The robot was undocked from the patient. I re-scrubbed into the case. All instruments and pneumoperitoneum were evacuated from the abdominal cavity. Incisions were reapproximated using 4-0 Monocryl in an interrupted subcuticular fashion. The 12-mm port site fascial defect was less than 8 mm in size. Dermabond was applied to the skin. Local anesthetic was infiltrated in all wounds for postop analgesia. Multiple intra-abdominal films were obtained. At the end of the procedure, needle, sponge, and instrument count was verified correct by the surgical territory manager. The patient had tolerated the procedure well and was taken to the postanesthesia unit in stable condition. Intraoperative films were reviewed with the patient's family who were pleased with the level of care.
--- NOTE | 2024-10-12 19:47 | XR ---
EXAMINATION TYPE: XR chest 1V portable DATE OF EXAM: 10/12/2024 7:15 PM COMPARISON: Chest radiographs from 10/12/2024. CLINICAL INDICATION: Female, 79 years old with history of post operative; TECHNIQUE: XR chest 1V portable Frontal view of the chest. FINDINGS: Exam is rotated limiting evaluation. Lungs/Pleura: There is no evidence of pleural effusion, focal consolidation, or pneumothorax. Pulmonary vascularity: Unremarkable. Heart/mediastinum: Cardiomediastinal silhouette is unremarkable. Reduction in left hiatal hernia. Musculoskeletal: No acute osseous pathology. IMPRESSION: Routine exam no definitive pneumothorax visualized. Post hernia repair changes. No definitive evidenc e for pneumothorax. Reduction in left hiatal hernia. [facility], , 10/12/2024 7:45 PM
[2024-10-12] MEDS: ONDANSETRON 4 MG/2 ML VIAL IVP SCH (20:46)
[2024-10-12] MEDS: ceFAZolin 2 GM in DEXTROSE 5% IN WATER 50 ML IVPB SCH (23:17)
[2024-10-13 07:16] LABS: Basophils # (A) 0.03 10*3/uL (0.00-0.10); Basophils % (A) 0.2 %; Eosinophils # (A) 0.03 10*3/uL (0.04-0.35); Eosinophils % (A) 0.2 %; HCT 37.3 % (37.2-46.3); HGB 12.2 g/dL (12.0-15.0); Lymphocytes # (A) 0.33 10*3/uL (0.90-5.00); Lymphocytes % (A) 1.9 %; MCH 31.6 pg (27.0-32.0); MCHC 32.7 g/dL (32.0-37.0); MCV 96.6 fL (80.0-97.0); Mean Platelet Volume 11.8 fL (9.5-12.2); Monocytes # (A) 1.13 10*3/uL (0.20-1.00); Monocytes % (A) 6.5 %; Neutrophils # (A) 15.69 10*3/uL (1.80-7.70); Neutrophils % (A) 90.8 %; Platelet Count 198 10*3/uL (140-440); RBC 3.86 10*6/uL (4.10-5.20); RDW 13.6 % (11.5-14.5); WBC 17.28 10*3/uL (4.50-10.00)
[2024-10-13 07:32] LABS: African American GFR (CKD) 74 (>60 ml/min/1.73 sqM); Anion Gap 6 mmol/L; Blood Urea Nitrogen 27 mg/dL (7-17); Calcium 8.7 mg/dL (8.4-10.2); Carbon Dioxide 25 mmol/L (22-30); Chloride 106 mmol/L (98-107); Glucose 151 mg/dL (74-99); Non-African American GFR(CKD) 64 (>60 ml/min/1.73 sqM); Potassium 4.5 mmol/L (3.5-5.1); Sodium 137 mmol/L (137-145)
[2024-10-13] MEDS: ENOXAPARIN 40 MG/0.4 ML SYRINGE SQ SCH (09:20)
--- NOTE | 2024-10-13 10:14 | FL ---
EXAMINATION TYPE: FL esophagus cervic/pharynx DATE OF EXAM: 10/13/2024 LIMITED UGI-ESOPHAGRAM: CLINICAL HISTORY: Recurrent hiatal hernia status post hiatal hernia repair surgery yesterday. TECHNIQUE: Limited esophagram is performed utilizing 20 oz of Isovue-370. A total of 56 seconds of f luoroscopic time was utilized during procedure and 48 images obtained. TOTAL DAP = 551.67 FINDINGS: The patient swallowed contrast without difficulty or delay. Esophageal peristalsis and mo tility are satisfactory. There is good flow of contrast along the diaphragmatic hiatus into the stoma ch, there is no evidence of contrast extravasation to suggest leak. No persistent hiatal hernia is se en. [id number] distal gastroesophageal reflux was seen during scanning. Patient remains asympto matic. IMPRESSION: No evidence of leak or significant obstruction status post hiatal hernia repair surgery y esterday. [facility], , 10/13/2024 10:12 AM
--- NOTE | 2024-10-13 11:29 | P.PN ---
Subjective Patient is seen for follow-up for acute kidney injury and hyperkalemia. Patient states that her potassium has been borderline elevated as outpatient for a long time. No urine retention Maintained on IV bicarb. Status post repair of strangulated recurrent paraesophageal hiatal hernia with partial gastrectomy on 10/12/2024 Overall feeling better. Pain is controlled Objective - Vital Signs Vital signs: Vital Signs Temp 97.6 F 10/13/24 03:52 Pulse 77 10/13/24 08:26 Resp 16 10/13/24 08:26 BP 134/83 10/13/24 08:26 Pulse Ox 94 L 10/13/24 09:20 FiO2 Intake & Output 10/12/24 10/13/24 10/13/24 18:59 06:59 18:59 Intake Total 2310 300 Output Total 5 Balance 2305 300 Weight 55.1 kg 58.5 kg Intake: IV 2310 300 Dextrose 5% in Water 1, 160 000 ml @ 80 mls/hr IV . [id number] JUANY with Sodium Bicarb (1 Meq/ml) 150 ml Rx#:[id number] Levofloxacin 250Mg-D5w 50 Pmx 250 mg In Dextrose/ Water 1 50ml.bag @ 50 mls /hr IVPB Q24HR JUANY Rx#: [id number] Sodium Chloride 0.9% 1, 1000 000 ml @ 500 mls/hr IV . Q2H ONE Rx#:[id number] metroNIDAZOLE-NS PMX 500 100 mg In Saline 1 100ml.bag @ 100 mls/hr IVPB Q8H JUANY Rx#:[id number] Output: Estimated Blood Loss 5 Other: Voiding Method Toilet # Voids 1 - Exam Patient is awake, comfortable, no acute distress. Examination of the heart S1 and S2 Examination of the lungs bilateral breath sounds are heard Abdomen is soft Examination of lower extremity shows no evidence of edema KINDERGARTEN ASSISTANT exam grossly intact - Labs CBC & Chem 7: 10/13/24 06:24 10/13/24 06:24 Labs: Abnormal Lab Results - Last 24 Hours (Table) 10/13/24 10/13/24 Range/Units 06:24 06:24 WBC 17.28 H (4.50-10.00) 10*3/uL RBC 3.86 L (4.10-5.20) 10*6/uL Immature Gran # 0.07 H (0.00-0.04) 10*3/uL Neutrophils # 15.69 H (1.80-7.70) 10*3/uL Lymphocytes # 0.33 L (0.90-5.00) 10*3/uL Monocytes # 1.13 H (0.20-1.00) 10*3/uL Eosinophils # 0.03 L (0.04-0.35) 10*3/uL BUN 27 H (7-17) mg/dL Glucose 151 H (74-99) mg/dL Assessment and Plan Assessment: 1. Acute kidney injury most likely associated with some degree of volume depletion with history of decreased intake over the last few days. UA shows trace protein. No evidence of urine retention on bladder scan. Ultrasound of the kidneys is unremarkable. Status post cardiac catheterization on 10/10/2024. 2. Mild hyperkalemia which is chronic. No evidence of urine retention. Patient is not maintained on GRAYSON inhibitors or Aldactone. Denies use of NSAIDs. Rule out constipation. 3. Incarcerated paraesophageal hiatal hernia 4. Chest pain with elevated troponin status post cardiac catheterization on 10/10/2024 with no evidence of obstructive coronary artery disease 5. Hypertension maintained on Norvasc 6. Hypercalcemia associated with volume contraction, improved post IV hydration. No history of use of calcium supplements or Tums. 7. Metabolic acidosis nongap secondary to acute kidney injury and IV fluids Plan: DC IV bicarb Switch to Ringer lactate Repeat labs in a.m. Continue low potassium diet
[2024-10-13] MEDS: LACTATED RINGERS 1,000 ML IV SCH (12:06)
--- NOTE | 2024-10-13 13:26 | P.PN ---
Subjective HISTORY OF PRESENT ILLNESS: This is a 79-year-old female with a past medical history significant for hypertension, hyperlipidemia, obstructive sleep apnea, and recent hiatal hernia surgery. Patient follows in the office with Dr. Solis. We have been asked to see the patient in consultation for elevated troponins. Patient examined at the bedside in the emergency room. Patient states that she underwent hiatal hernia surgery in August 2024. She states this was the second time she is underwent hiatal hernia repair. Patient reported that for the past 2 nights she has been having nausea and gas pain. She also reports pain in her chest that goes into her neck, shoulder, and back. She states the pain has been constant for the past 2 days. She also reports the pain is worse with deep inspiration. She continues to report mild chest discomfort at the time of examination. DIAGNOSTICS: - EKG reveals sinus mechanism with no signs of acute ischemia. - Chest xray negative for acute process. Large hiatal hernia with air-fluid levels -Chest CT: Mild coronary artery calcifications present. Large hiatal hernia which may involve the hernia through the diaphragm. The inlet from the esophagus and the outlet into the distal stomach are hard to track. However no suspicious changes to suggest ischemic changes identified at this time. 1 cm borderline enlarged lymph nodes within the mediastinum - Laboratory data: WBC 15.87. Hemoglobin 14.1. Platelet count 158. Sodium 137. Potassium 4.6. BUN 19. Creatinine 0.94. Magnesium 2.0. proBNP 1900. Troponin 0.012. 0.041. 0.055. - Current home cardiac medications include amlodipine 10 mg daily and Pitavastatin 2 mg daily. - Most recent echocardiogram obtained in September 2023 revealing ejection fraction 50%, mild concentric LVH, trace to mild AR, moderate MR, moderate to severe TR - Cardiac catheterization history: Patient denies 10/11/2024 Patient is status post cardiac catheterization with Dr. Reis revealing mild obstructive disease in the mid LAD and proximal and mid RCA. Right dominant system. Low LVEDP. Patient examined this morning to bedside. Patient denies any further episodes of chest pain or pressure. She currently denies shortness of breath. She reports improvement in her abdominal pain. Creatinine today increased to 1.2. Patient has been given IV fluid bolus per nursing. 10/12/2024 Patient examined this morning at the bedside. Patient is reporting left-sided chest discomfort. Denies SOB. Scheduled for surgery today with Dr. Prakash. 10/13/2024 Patient is status post robotic assisted laparoscopic reduction of gastric volvulus and repair of strangulated recurrent paraesophageal hiatal hernia. Patient states she is feeling better today. She denies chest pain or pressure. She denies shortness of breath. Vital signs are stable. Echocardiogram completed revealing ejection fraction 55 to 60% with trace MR PHYSICAL EXAM: VITAL SIGNS: Reviewed. GENERAL: Well-developed in no acute distress. HEENT: Head is normocephalic. Pupils are equal, round. Sclerae anicteric. Mucous membranes of the mouth are moist. Neck supple. No JVD or thyromegaly LUNGS: Respirations even and unlabored. Lungs essentially clear to auscultation bilaterally. HEART: Regular rate and rhythm. S1 and S2 heard. ABDOMEN: Soft. Nondistended. Nontender. EXTREMITIES: Normal range of motion. No clubbing or cyanosis. Peripheral pulses intact. No lower extremity edema NEUROLOGIC: Awake and alert. Oriented x 3. ASSESSMENT: Chest pain with typical and atypical features with mild troponin elevation, type II VT, status post cardiac catheterization revealing mild obstructive disease in the mid LAD and proximal and mid RCA History of hiatal hernia surgery x 2, most recently in August 2024 Nausea Hypertension Hyperlipidemia Obstructive sleep apnea History of asthma History of nicotine dependence, quit smoking 10 years ago Reported anaphylactic reaction to aspirin PLAN: Continue current cardiac medications Patient with anaphylactic reaction to aspirin in the past No further inpatient recommendations from a cardiac standpoint We will sign off. Please reconsult if needed. Nurse practitioner note has been reviewed by physician. Signing provider agrees with the documented findings, assessment, and plan of care documented by [employer] as a scribe. Objective - Vital Signs Vital signs: Vital Signs Temp 98.0 F 10/13/24 12:14 Pulse 69 10/13/24 12:14 Resp 16 10/13/24 12:14 BP 124/70 10/13/24 12:14 Pulse Ox 94 L 10/13/24 12:14 FiO2 Intake & Output 10/12/24 10/13/24 10/13/24 18:59 06:59 18:59 Intake Total 2310 300 Output Total 5 Balance 2305 300 Weight 55.1 kg 58.5 kg Intake: IV 2310 300 Dextrose 5% in Water 1, 160 000 ml @ 80 mls/hr IV . [id number] JU[facility] with Sodium Bicarb (1 Meq/ml) 150 ml Rx#:[id number] Levofloxacin 250Mg-D5w 50 Pmx 250 mg In Dextrose/ Water 1 50ml.bag @ 50 mls /hr IVPB Q24HR [facility] Rx#: [id number] Sodium Chloride 0.9% 1, 1000 000 ml @ 500 mls/hr IV . Q2H ONE Rx#:[id number] metroNIDAZOLE-NS PMX 500 100 mg In Saline 1 100ml.bag @ 100 mls/hr IVPB Q8H [facility] Rx#:[id number] Output: Estimated Blood Loss 5 Other: Voiding Method Toilet # Voids 1 - Labs CBC & Chem 7: 10/13/24 06:24 10/13/24 06:24 Labs: Abnormal Lab Results - Last 24 Hours (Table) 10/13/24 10/13/24 Range/Units 06:24 06:24 WBC 17.28 H (4.50-10.00) 10*3/uL RBC 3.86 L (4.10-5.20) 10*6/uL Immature Gran # 0.07 H (0.00-0.04) 10*3/uL Neutrophils # 15.69 H (1.80-7.70) 10*3/uL Lymphocytes # 0.33 L (0.90-5.00) 10*3/uL Monocytes # 1.13 H (0.20-1.00) 10*3/uL Eosinophils # 0.03 L (0.04-0.35) 10*3/uL BUN 27 H (7-17) mg/dL Glucose 151 H (74-99) mg/dL
--- NOTE | 2024-10-13 14:23 | P.PN ---
Subjective Progress Note Date: 10/13/24 History of present illness; Patient is 79-year-old female with history of hypertension, hyperlipidemia, JOSEPHINE, recent hiatal hernia surgery who presented with shortness of breath and chest pain. Patient states 2 nights ago she began having constant substernal pain radiating to left arm left neck and left shoulder. Pain described as knifelike and back and dull pain in chest. Worse with deep inspiration. Currently, this pain is still present. She denies orthopnea. Associated symptoms of nausea, shortness of breath. She tried Tums which did not improve her symptoms. She endorses history of 2 hiatal hernia surgeries in the past year. No other symptoms at this time. REVIEW OF SYSTEMS: Pertinent positives and negatives noted in HPI. 10/12/2024 Patient seen and examined at bedside. Patient scheduled for surgery today. She does continue to have left-sided flank pain with back pain. She is being seen by nephrology for EBONI and continues on D5W with bicarb. 10/13/2024 Patient seen and examined at bedside. Yesterday patient underwent surgery for recurrent incarcerated paraesophageal hiatal hernia with strangulation with partial gastrectomy, reduction and repair. She tolerated procedure well. Mild abdominal pain. No other complaints. PHYSICAL EXAMINATION: Vitals reviewed GENERAL: Resting in bed. CARDIOVASCULAR: S1 and S2 present. No murmurs, rubs, or gallops. PULMONARY: Chest is clear to auscultation, no wheezing, rhonchi, or crackles. ABDOMEN: Soft, nontender, nondistended. No palpable organomegaly. MUSCULOSKELETAL: No apparent joint swelling and deformities. EXTREMITIES: No apparent cyanosis, clubbing. No pedal edema. NEUROLOGICAL: Alert and oriented. Gross neurological examination with no apparent focal deficits. Findings: LabsWBC 17.2, BUN 27, glucose 151. Chest x-ray independently interpreted as post hernia repair changes, no evidence of pneumothorax, reduction in left hiatal hernia. Assessment and Plan: In summary, patient is 79-year-old female with history of hypertension, hyperlipidemia, JOSEPHINE, recent hiatal hernia surgery who presented with shortness of breath and chest pain. #History of hiatal hernia surgery 2x, most recent August 2024 #Recurrent strangulated incarcerated paraesophageal hiatal hernia status post partial gastrectomy, reduction and repair POD #1 #Gastric volvulus with infarction CT chest with large hiatal hernia through diaphragm Continue metronidazole Pantoprazole daily, Zofran, and Maalox Pain management per surgery Surgery following # Chest pain with typical and atypical features #NSTEMI, type II, rule out CAD Initial troponin <0.012 => 0.041 => 0.055 Increase atorvastatin 40 mg given Continue metoprolol tartrate 25 mg twice daily Patient unable to tolerate aspirin due to anaphylaxis Echo with EF of 55 to 60% Cardiac cath completed, nonobstructive disease in mid LAD and proximal and mid RCA, right dominance Cardiology following #EBONI due to volume depletion, improved #Metabolic acidosis non-anion gap Continue IV LR Discontinue bicarb Neurology following #Mild hyperkalemia, chronic Lokelma for 3 doses IV fluids of above Neurology following #Leukocytosis, improving Asymptomatic at this time UA significant for large leukocyte esterase Continue above antibiotics #Hypertensive urgency, resolved Resume home amlodipine Chronic Medical Conditions #Essential hypertension # Hyperlipidemia #COPD Resume home medication DVT ppx: Subcu Lovenox 40 MEQ daily Code status: Full code F: IV fluids E: Lokelma for hyperkalemia N: Clear liquid diet A: Ambulatory Anticipated discharge place: Home Anticipated discharge time: Tomorrow Dr. Lawson seen patient with resident, present during exam, and agreed with findings. Dictation was produced using [employer] dictation software. Please excuse any grammatical, word or spelling errors. Objective - Vital Signs Vital signs: Vital Signs Temp 97.6 F 10/13/24 03:52 Pulse 77 10/13/24 08:26 Resp 16 10/13/24 08:26 BP 134/83 10/13/24 08:26 Pulse Ox 86 L 10/13/24 08:26 FiO2 Intake & Output 10/12/24 10/13/24 10/13/24 18:59 06:59 18:59 Intake Total 2310 300 Output Total 5 Balance 2305 300 Weight 55.1 kg 58.5 kg Intake: IV 2310 300 Dextrose 5% in Water 1, 160 000 ml @ 80 mls/hr IV . [id number] [facility] with Sodium Bicarb (1 Meq/ml) 150 ml Rx#:[id number] Levofloxacin 250Mg-D5w 50 Pmx 250 mg In Dextrose/ Water 1 50ml.bag @ 50 mls /hr IVPB Q24HR [facility] Rx#: [id number] Sodium Chloride 0.9% 1, 1000 000 ml @ 500 mls/hr IV . Q2H [facility] Rx#:[id number] metroNIDAZOLE-NS PMX 500 100 mg In Saline 1 100ml.bag @ 100 mls/hr IVPB Q8H [facility] Rx#:[id number] Output: Estimated Blood Loss 5 Other: Voiding Method Toilet # Voids 1 - Labs CBC & Chem 7: 10/13/24 06:24 10/13/24 06:24 Labs: Abnormal Lab Results - Last 24 Hours (Table) 10/13/24 10/13/24 Range/Units 06:24 06:24 WBC 17.28 H (4.50-10.00) 10*3/uL RBC 3.86 L (4.10-5.20) 10*6/uL Immature Gran # 0.07 H (0.00-0.04) 10*3/uL Neutrophils # 15.69 H (1.80-7.70) 10*3/uL Lymphocytes # 0.33 L (0.90-5.00) 10*3/uL Monocytes # 1.13 H (0.20-1.00) 10*3/uL Eosinophils # 0.03 L (0.04-0.35) 10*3/uL BUN 27 H (7-17) mg/dL Glucose 151 H (74-99) mg/dL
--- NOTE | 2024-10-13 14:29 | P.PN ---
Subjective Progress Note Date: 10/13/24 CHIEF COMPLAINT: Abdominal pain HISTORY OF PRESENT ILLNESS: Patient is postop day #1 status post robotic assisted laparoscopic reduction of organoaxial gastric volvulus, repair of strangulated recurrent paraesophageal hiatal hernia, drainage of left pleural effusion, partial gastrectomy for gastric infarction. Patient reports her pain is controlled. She is feeling better. Her upper GI shows no evidence of leak or obstruction. She denies any vomiting. Denies any flatus. She did have nausea earlier that has resolved. She is on 3 L of oxygen. Chest x-ray shows no evidence of pneumothorax. Afebrile. WBC is 17.28 Hgb 12.2 PHYSICAL EXAM: VITAL SIGNS: Reviewed GENERAL: Well-developed in no acute distress. HEENT: No sclera icterus. Extraocular movements grossly intact. Moist buccal mucosa. Head is atraumatic, normocephalic. Hears conversational speech. No nasal drainage. NECK: Supple without lymphadenopathy. CHEST: Non-labored respirations and equal bilateral excursions. CARDIOVASCULAR: Palpable 2+ radial pulses. ABDOMEN: Soft. Nondistended. Incision sites clean dry and intact MUSCULOSKELETAL: No clubbing or cyanosis. NEUROLOGIC: No focal or lateralizing signs. Cranial nerves II through XII grossly intact. PSYCH: Appropriate affect. Alert and oriented to person, place and time. SKIN: Well perfused. Good skin turgor. ASSESSMENT: 1. Strangulated recurrent incarcerated paraesophageal hiatal hernia, 9 x 4 cm 2. Gastric infarction 3. Gastric ischemia 4. Gastric volvulus with infarction PLAN: - Advance diet to anything clear liquids - Consult pulmonary service due collapse left lung because of hiatal hernia - Encourage patient increase activity level - Encourage patient to use incentive spirometer Physician [employer] Professor note has been reviewed by physician. Signing provider agrees with the documented findings, assessment, and plan of care. Objective - Vital Signs Vital signs: Vital Signs Temp 98.0 F 10/13/24 12:14 Pulse 69 10/13/24 12:14 Resp 16 10/13/24 12:14 BP 124/70 10/13/24 12:14 Pulse Ox 94 L 10/13/24 12:14 FiO2 Intake & Output 10/12/24 10/13/24 10/13/24 18:59 06:59 18:59 Intake Total 2310 300 318 Output Total 5 Balance 2305 300 318 Weight 55.1 kg 58.5 kg Intake: IV 2310 300 Dextrose 5% in Water 1, 160 000 ml @ 80 mls/hr IV . [id number] [facility] with Sodium Bicarb (1 Meq/ml) 150 ml Rx#:[id number] Levofloxacin 250Mg-D5w 50 Pmx 250 mg In Dextrose/ Water 1 50ml.bag @ 50 mls /hr IVPB Q24HR [facility] Rx#: [id number] Sodium Chloride 0.9% 1, 1000 000 ml @ 500 mls/hr IV . Q2H [facility] Rx#:[id number] metroNIDAZOLE-NS PMX 500 100 mg In Saline 1 100ml.bag @ 100 mls/hr IVPB Q8H [facility] Rx#:[id number] Oral 318 Output: Estimated Blood Loss 5 Other: Voiding Method Toilet # Voids 1 - Labs CBC & Chem 7: 10/13/24 06:24 10/13/24 06:24 Labs: Abnormal Lab Results - Last 24 Hours (Table) 10/13/24 10/13/24 Range/Units 06:24 06:24 WBC 17.28 H (4.50-10.00) 10*3/uL RBC 3.86 L (4.10-5.20) 10*6/uL Immature Gran # 0.07 H (0.00-0.04) 10*3/uL Neutrophils # 15.69 H (1.80-7.70) 10*3/uL Lymphocytes # 0.33 L (0.90-5.00) 10*3/uL Monocytes # 1.13 H (0.20-1.00) 10*3/uL Eosinophils # 0.03 L (0.04-0.35) 10*3/uL BUN 27 H (7-17) mg/dL Glucose 151 H (74-99) mg/dL
[2024-10-14] MEDS ORDERED: ALBUTEROL NEBULIZED 2.5 MG/3 ML INHALATION PRN (03:12)
--- NOTE | 2024-10-14 03:20 | P.CNPUL ---
History of Present Illness Consult date: 10/14/24 Requesting physician: Lucia Arroyo Reason for consult: other ("Collapsed lung") Chief complaint: Chest pain, intractable nausea and vomiting History of present illness: Patient is a 79-year-old female with past medical history significant for hiatal hernia with previous repair, GERD, chronic bronchial asthma, obstructive sleep apnea, hypertension, hyperlipidemia, and former tobacco dependence. Present to the emergency department back on 10/09/2024 with a chief complaint of left-sided chest pain with associated intractable nausea and vomiting. Patient worked up by cardiology and did undergo heart catheterization which found mild nonobstructive coronary artery disease. Follow-up echocardiogram estimating preserved left ventricular ejection fraction of 55%. CT chest did show a recurrent large paraesophageal hiatal hernia. She does have history of hiatal hernia with previous repair back in November,. It was determined the chest pain was secondary to incarcerated paraesophageal hiatal hernia. On 10/12/2024, did undergo robotic assisted laparoscopic repair of the strangulated recurrent paraesophageal hiatal hernia, EGD with gastric decompression, reduction of gastric volvulus, and partial gastrectomy for gastric infarction. Also reported intraoperative drainage of a small left pleural effusion. Approximately 200 cc. Patient has been recovering on the cardiac stepdown unit. Tolerating oral fluids. Continues to have some epigastric discomfort. No further nausea, vom iting. On 2 L/min nasal cannula. Not in any respiratory distress. Pulmonary consult placed for "collapsed left lung". Follow-up chest x-ray did not show any evidence of pneumothorax, pleural effusions, focal consolidation. There is postsurgical changes with reduction of the left hiatal hernia. Patient does have history of chronic bronchial asthma. Follows in the pulmonary office with Dr. Evans. Normally maintained on a combination of Trelegy maintenance inhaler as well as as needed albuterol inhaler. Pulmonary status currently appears stable. Viral screen negative for influenza, RSV, COVID. Incentive spirometer is at bedside. Most recent labs from yesterday including a CBC with a WBC count of 17.3, hemoglobin 12.2, platelets 198. BMP is unremarkable, electrolytes WDL, creatinine 0.88, glucose 151. LR currently infusing at 75 mL/h. Vital signs are stable. Review of Systems Constitutional: Reports weight loss (20 pound weight loss since previous hiatal hernia repair November,), Denies chills, Denies fatigue, Denies fever, Denies poor appetite, Denies weakness, Denies weight gain Ears, nose, mouth and throat: Denies dysphagia, Denies headache, Denies nasal congestion, Denies nasal discharge, Denies odynophagia, Denies post-nasal drip, Denies sinus pain, Denies sinus pressure, Denies sore throat Cardiovascular: Reports chest pain, Denies leg edema, Denies lightheadedness, Denies orthopnea, Denies palpitations, Denies paroxysmal nocturnal dyspnea, Denies syncope Respiratory: Denies congestion, Denies cough, Denies cough with sputum, Denies dyspnea, Denies excessive sputum, Denies hemoptysis, Denies pain on inspiration Gastrointestinal: Reports abdominal pain, Denies diarrhea, Denies hematemesis, Denies hematochezia, Denies melena, Denies nausea, Denies vomiting (Intractable nausea and vomiting is improved and patient is tolerating clear liquids) Genitourinary: Denies dysuria Musculoskeletal: Denies limitation of motion Integumentary: Denies rash Neurological: Denies seizures, Denies syncope Psychiatric: Denies anxiety, Denies depression Past Medical History Past Medical History: Asthma, COPD, Eye Disorder, GERD/Reflux, Hyperlipidemia, Hypertension, Sleep Apnea/CPAP/BIPAP Additional Past Medical History / Comment(s): "My food gets stuck between my breasts." osteoporosis. GLAUCOMA. Use CPAP. History of Any Multi-Drug Resistant Organisms: None Reported Additional Past Surgical History / Comment(s): BILATERAL BUNIONS REMOVED. BILATERAL EYELID LIFT. BILATERAL CATARACTS REMOVED/LENS IMPLANT. COLONOSCOPY, HIATAL HERNIA REPAIR X2, EGD, Colonoscopy Past Anesthesia/Blood Transfusion Reactions: No Reported Reaction Additional Past Anesthesia/Blood Transfusion Reaction / Comment(s): No hx of blood transfusion to date. Past Psychological History: No Psychological Hx Reported Smoking Status: Former smoker Past Alcohol Use History: Rare Additional Past Alcohol Use History / Comment(s): QUIT 2003. SMOKED .5PPD, started smoking at age 22's. Past Drug Use History: None Reported - Past Family History Mother Family Medical History: No Reported History Medications and Allergies Home Medications Medication Instructions Recorded Confirmed Type Ergocalciferol [Vitamin D2 (1250 1,250 mcg PO MO 08/05/23 10/09/24 History Mcg = 66865 Iu)] Fluticasone/Umeclidin/Vilanter 1 puff INHALATION RT-DAILY 08/05/23 10/09/24 History [Trelegy Ellipta 200-62.5-25] Latanoprost Ophth [Xalatan 0.005%] 1 drops BOTH EYES HS 08/05/23 10/09/24 History Montelukast Sodium 10 mg PO DAILY 08/05/23 10/09/24 History Pitavastatin Calcium 2 mg PO DAILY 08/05/23 10/09/24 History Raloxifene [Evista] 60 mg PO DAILY 08/05/23 10/09/24 History Acetaminophen Tab [Tylenol Tab] 1,000 mg PO Q6HR PRN #30 tablet 08/07/24 10/09/24 Rx amLODIPine [Norvasc] 10 mg PO DAILY 10/09/24 10/09/24 History Allergies Allergy/AdvReac Type Severity Reaction Status Date / Time aspirin Allergy Anaphylaxis Verified 10/09/24 16:06 Penicillins Allergy Anaphylaxis Verified 10/09/24 16:06 Physical Exam Vitals: Vital Signs Temp Pulse Resp BP BP Pulse Ox 10/14/24 00:05 98.0 F 67 16 108/64 93 L 10/13/24 20:18 98.1 F 71 16 96/57 92 L 10/13/24 15:43 98.1 F 71 16 110/59 94 L 10/13/24 12:14 98.0 F 69 16 124/70 94 L 10/13/24 09:20 94 L 10/13/24 09:17 95 10/13/24 08:26 77 16 134/83 86 L 10/13/24 03:52 97.6 F 67 16 137/73 94 L Intake and Output 10/13/24 10/13/24 10/14/24 14:59 22:59 06:59 Intake Total 318 1248 Balance 318 1248 Intake: IV 340 Dextrose 5% in Water 1, 240 000 ml @ 80 mls/hr IV . [id number] JUANY with Sodium Bicarb (1 Meq/ml) 150 ml Rx#:[id number] metroNIDAZOLE-NS PMX 500 100 mg In Saline 1 100ml.bag @ 100 mls/hr IVPB Q8H JUANY Rx#:[id number] Intake, IV Titration 708 Amount Lactated Ringers 1,000 ml 708 @ 70 mls/hr IV .[id number] [facility] Rx#:[id number] Oral 318 200 Other: Voiding Method Toilet Toilet # Voids 1 2 GENERAL EXAM: Alert, 79-year-old female, comfortable in no apparent distress. HEAD: Normocephalic and atraumatic EYES: Normal reaction of pupils, equal size. NOSE: Clear with pink turbinates. THROAT: No erythema or exudates. NECK: No masses, no JVD. CHEST: No chest wall deformity. LUNGS: Equal air entry with left basilar inspiratory crackles. No wheezing, rhonchi, focal dullness. On 2 L/min nasal cannula. No conversational dyspnea or accessory muscle use while at rest CVS: S1 and S2 normal with no audible murmur, regular rhythm. No extra heart sounds ABDOMEN: Flat abdomen, laparoscopic incisional sites approximated without drainage. Active bowel sounds, no hepatosplenomegaly, no guarding or rigidity. SPINE: No scoliosis or deformity SKIN: No rashes CENTRAL NERVOUS SYSTEM: No focal deficits, tone is normal in all 4 extremities. EXTREMITIES: There is no peripheral edema, clubbing, or cyanosis. Peripheral pulses are intact. Results - Laboratory Findings CBC and BMP: 10/13/24 06:24 10/13/24 06:24 PT/INR, D-dimer PT 9.8 sec (10.0-12.5) L 10/09/24 17:14 INR 0.9 (<1.2) 10/09/24 17:14 Abnormal lab findings: Abnormal Labs 10/09/24 10/09/24 10/09/24 17:14 17:14 17:14 WBC 13.96 H RBC MCH 32.1 H MPV Immature Gran # 0.05 H Neutrophils # Neutrophils # (Manual) 11.45 H Lymphocytes # Monocytes # Eosinophils # PT 9.8 L APTT Sodium Potassium 5.6 H Carbon Dioxide 21 L BUN 19 H Creatinine Glucose 112 H Calcium 11.1 H Troponin I Urine Appearance Urine Protein Urine Ketones Ur Leukocyte Esterase Urine RBC Urine WBC Urine Bacteria Urine Mucus 10/09/24 10/10/24 10/10/24 23:50 03:45 03:45 WBC 15.87 H RBC MCH MPV 13.1 H Immature Gran # 0.06 H Neutrophils # 13.25 H Neutrophils # (Manual) Lymphocytes # Monocytes # 1.47 H Eosinophils # 0.01 L PT APTT Sodium Potassium Carbon Dioxide BUN Creatinine Glucose Calcium Troponin I 0.041 H* 0.055 H* Urine Appearance Urine Protein Urine Ketones Ur Leukocyte Esterase Urine RBC Urine WBC Urine Bacteria Urine Mucus 10/10/24 10/10/24 10/11/24 03:45 07:54 06:07 WBC 18.35 H RBC MCH MPV Immature Gran # 0.06 H Neutrophils # 15.43 H Neutrophils # (Manual) Lymphocytes # Monocytes # 1.71 H Eosinophils # 0.02 L PT APTT 44.3 H Sodium Potassium Carbon Dioxide 20 L BUN 19 H Creatinine Glucose 119 H Calcium Troponin I Urine Appearance Urine Protein Urine Ketones Ur Leukocyte Esterase Urine RBC Urine WBC Urine Bacteria Urine Mucus 10/11/24 10/11/24 10/12/24 06:07 20:44 04:50 WBC 19.04 H RBC MCH MPV Immature Gran # 0.08 H Neutrophils # 15.23 H Neutrophils # (Manual) Lymphocytes # Monocytes # 2.72 H Eosinophils # 0.03 L PT APTT Sodium Potassium 5.3 H Carbon Dioxide BUN 32 H Creatinine 1.24 H Glucose 109 H Calcium Troponin I Urine Appearance Cloudy H Urine Protein Trace H Urine Ketones 1+ H Ur Leukocyte Esterase Large H Urine RBC 6 H Urine WBC 96 H Urine Bacteria Rare H Urine Mucus Rare H 10/12/24 10/13/24 10/13/24 04:50 06:24 06:24 WBC 17.28 H RBC 3.86 L MCH MPV Immature Gran # 0.07 H Neutrophils # 15.69 H Neutrophils # (Manual) Lymphocytes # 0.33 L Monocytes # 1.13 H Eosinophils # 0.03 L PT APTT Sodium 135 L Potassium 5.3 H Carbon Dioxide 17 L BUN 35 H 27 H Creatinine Glucose 151 H Calcium Troponin I Urine Appearance Urine Protein Urine Ketones Ur Leukocyte Esterase Urine RBC Urine WBC Urine Bacteria Urine Mucus - Diagnostic Findings Chest x-ray: image reviewed CT scan - chest: image reviewed Assessment and Plan Assessment: Strangulated recurrent incarcerated paraesophageal hiatal hernia status postoper ative day #2 following laparoscopic surgical repair of the strangulated recurrent paraesophageal hiatal hernia, EGD with gastric decompression, reduction of gastric volvulus, and partial gastrectomy due to gastric infarction. Also, reported intraoperative drainage of a small left pleural effusion. Approximately 200 cc. Chest pain, secondary to above Acute hypoxemic respiratory failure, secondary to above, follow-up chest x-ray did not show any evidence of pneumothorax, pleural effusions, focal consolidation. There is postsurgical changes with reduction of the previous hiatal hernia. Mild nonobstructive coronary artery disease, per heart catheterization report Leukocytosis, improving Acute kidney injury, resolved Hypertension History of hyperlipidemia History of obstructive sleep apnea Chronic bronchial asthma, stable and inactive; normally maintained on Trelegy maintenance inhalers of inhaler as well as as needed albuterol rescue inhaler. History of hiatal hernia with previous repair November, Gastroesophageal reflux disease Former tobacco dependence, quitting over 20 years ago Plan: Patient's medications, labs, and imaging reviewed No evidence of pneumothoraces, pleural effusions, focal consolidations. Postsurgical changes noted with associated atelectasis. Continue supplemental oxygen at to maintain oxygen saturation of 92% or greater Encourage incentive spirometer per protocol Postoperative pain reportedly well-managed Tolerating clear liquids Continue maintenance inhalers for chronic bronchial asthma We will continue to follow I have personally seen and examined the patient, performed the documentation and the assessment and plan as written. Number of minutes spent on the visit:20 Time with Patient: Greater than 30
[2024-10-14 06:52] LABS: Basophils # (A) 0.02 10*3/uL (0.00-0.10); Basophils % (A) 0.1 %; Eosinophils # (A) 0.08 10*3/uL (0.04-0.35); Eosinophils % (A) 0.6 %; HCT 29.1 % (37.2-46.3); Lymphocytes # (A) 1.28 10*3/uL (0.90-5.00); Lymphocytes % (A) 9.1 %; MCH 30.6 pg (27.0-32.0); MCHC 32.6 g/dL (32.0-37.0); MCV 93.9 fL (80.0-97.0); Mean Platelet Volume 11.7 fL (9.5-12.2); Monocytes # (A) 1.19 10*3/uL (0.20-1.00); Monocytes % (A) 8.4 %; Neutrophils # (A) 11.53 10*3/uL (1.80-7.70); Neutrophils % (A) 81.5 %; Platelet Count 195 10*3/uL (140-440); RDW 13.8 % (11.5-14.5); WBC 14.14 10*3/uL (4.50-10.00)
[2024-10-14 07:12] LABS: HGB 9.5 g/dL (12.0-15.0)
[2024-10-14 07:17] LABS: African American GFR (CKD) 72 (>60 ml/min/1.73 sqM); Anion Gap 3 mmol/L; Blood Urea Nitrogen 19 mg/dL (7-17); Calcium 8.1 mg/dL (8.4-10.2); Carbon Dioxide 28 mmol/L (22-30); Chloride 105 mmol/L (98-107); Glucose 87 mg/dL (74-99); Non-African American GFR(CKD) 63 (>60 ml/min/1.73 sqM); Potassium 3.9 mmol/L (3.5-5.1); Sodium 136 mmol/L (137-145)
[2024-10-14] MEDS: SODIUM CHLORIDE 0.9% 500 ML 500 ML IV ONE (08:47)
--- NOTE | 2024-10-14 11:42 | P.PN ---
Subjective Progress Note Date: 10/14/24 History of present illness; Patient is 79-year-old female with history of hypertension, hyperlipidemia, JOSEPHINE, recent hiatal hernia surgery who presented with shortness of breath and chest pain. Patient states 2 nights ago she began having constant substernal pain radiating to left arm left neck and left shoulder. Pain described as knifelike and back and dull pain in chest. Worse with deep inspiration. Currently, this pain is still present. She denies orthopnea. Associated symptoms of nausea, shortness of breath. She tried Tums which did not improve her symptoms. She endorses history of 2 hiatal hernia surgeries in the past year. No other symptoms at this time. REVIEW OF SYSTEMS: Pertinent positives and negatives noted in HPI. 10/12/2024 Patient seen and examined at bedside. Patient scheduled for surgery today. She does continue to have left-sided flank pain with back pain. She is being seen by nephrology for EBONI and continues on D5W with bicarb. 10/13/2024 Patient seen and examined at bedside. Yesterday patient underwent surgery for recurrent incarcerated paraesophageal hiatal hernia with strangulation with partial gastrectomy, reduction and repair. She tolerated procedure well. Mild abdominal pain. No other complaints. 10/14/2024 Patient seen and examined at bedside. Advance diet as tolerated. No bowel movement or passing gas. She continues to have oxygen requirement, no oxygen at home. Mild abdominal pain is stable. PHYSICAL EXAMINATION: Vitals reviewed GENERAL: Resting in bed. CARDIOVASCULAR: S1 and S2 present. No murmurs, rubs, or gallops. PULMONARY: Chest is clear to auscultation, no wheezing, rhonchi, or crackles. ABDOMEN: Soft, nontender, nondistended. No palpable organomegaly. MUSCULOSKELETAL: No apparent joint swelling and deformities. EXTREMITIES: No apparent cyanosis, clubbing. No pedal edema. NEUROLOGICAL: Alert and oriented. Gross neurological examination with no apparent focal deficits. Findings: LabsWBC 14.1, sodium 136, BUN 19 Chest x-ray repeat pending Assessment and Plan: In summary, patient is 79-year-old female with history of hypertension, hyperlipidemia, JOSEPHINE, recent hiatal hernia surgery who presented with shortness of breath and chest pain. #History of hiatal hernia surgery 2x, most recent August 2024 #Recurrent strangulated incarcerated paraesophageal hiatal hernia status post partial gastrectomy, reduction and repair POD #2 #Gastric volvulus with infarction Continue metronidazole Pantoprazole daily, Zofran, and Maalox Advance diet Begin Senokot and lactulose Pain management per surgery Surgery following # Chest pain with typical and atypical features #NSTEMI, type II, rule out CAD Initial troponin <0.012 => 0.041 => 0.055 Increase atorvastatin 40 mg given Continue metoprolol tartrate 25 mg twice daily Patient unable to tolerate aspirin due to anaphylaxis Echo with EF of 55 to 60% Cardiac cath completed, nonobstructive disease in mid LAD and proximal and mid RCA, right dominance Cardiology following #EBONI due to volume depletion, improved #Metabolic acidosis non-anion gap Continue IV LR Discontinue bicarb Neurology following #Mild hyperkalemia, chronic, improved Lokelma for 3 doses IV fluids of above Neurology following #Leukocytosis, improving Asymptomatic at this time UA significant for large leukocyte esterase Continue above antibiotics #Hypertensive urgency, resolved Resume home amlodipine Chronic Medical Conditions #Essential hypertension # Hyperlipidemia #COPD Resume home medication DVT ppx: Subcu Lovenox 40 MEQ daily Code status: Full code F: IV fluids E: Replete as needed N: Clear liquid diet, advance as tolerated A: Ambulatory Anticipated discharge place: Home Anticipated discharge time: Tomorrow Dr. Lawson seen patient with resident, present during exam, and agreed with findings. Dictation was produced using [employer] dictation software. Please excuse any grammatical, word or spelling errors. Objective - Vital Signs Vital signs: Vital Signs Temp 97.8 F 10/14/24 11:05 Pulse 69 10/14/24 11:05 Resp 16 10/14/24 11:05 BP 122/68 10/14/24 11:05 Pulse Ox 94 L 10/14/24 11:05 FiO2 Intake & Output 10/13/24 10/14/24 10/14/24 18:59 06:59 18:59 Intake Total 1566 558 Balance 1566 558 Weight 59.6 kg Intake: IV 340 Dextrose 5% in Water 1, 240 000 ml @ 80 mls/hr IV . [id number] [facility]UANY with Sodium Bicarb (1 Meq/ml) 150 ml Rx#:[id number] metroNIDAZOLE-NS PMX 500 100 mg In Saline 1 100ml.bag @ 100 mls/hr IVPB Q8H [facility] Rx#:[id number] Intake, IV Titration 708 Amount Lactated Ringers 1,000 ml 708 @ 70 mls/hr IV .[id number] [facility] Rx#:[id number] Oral 518 558 Other: Voiding Method Toilet Toilet # Voids 1 2 - Labs CBC & Chem 7: 10/14/24 05:53 10/14/24 05:53 Labs: Abnormal Lab Results - Last 24 Hours (Table) 10/14/24 10/14/24 Range/Units 05:53 05:53 WBC 14.14 H (4.50-10.00) 10*3/uL RBC 3.10 L (4.10-5.20) 10*6/uL Hgb 9.5 L D (12.0-15.0) g/dL Hct 29.1 L (37.2-46.3) % Neutrophils # 11.53 H (1.80-7.70) 10*3/uL Monocytes # 1.19 H (0.20-1.00) 10*3/uL Sodium 136 L (137-145) mmol/L BUN 19 H (7-17) mg/dL Calcium 8.1 L (8.4-10.2) mg/dL
[2024-10-14] MEDS: polyethylene glycoL 3350 17 GM POWD.PACK PO SCH (12:52)
[2024-10-14] MEDS: SENNOSIDES-DOCUSATE SODIUM 1 EACH TAB PO SCH (12:52)
--- NOTE | 2024-10-14 13:06 | P.PN ---
Subjective Progress Note Date: 10/14/24 CHIEF COMPLAINT: Abdominal pain HISTORY OF PRESENT ILLNESS: Patient is postop day #2 status post robotic assisted laparoscopic reduction of organoaxial gastric volvulus, repair of strangulated recurrent paraesophageal hiatal hernia, drainage of left pleural effusion, partial gastrectomy for gastric infarction. Patient's pain is controlled. She is tolerating the liquid diet. She denies any flatus. Patient does report a little shortness of breath with ambulating. Afebrile. WBC is down from 17-14 Hgb down from 12-9.5 platelets 195. Patient seen and evaluated by pulmonary service. PHYSICAL EXAM: VITAL SIGNS: Reviewed GENERAL: Well-developed in no acute distress. HEENT: No sclera icterus. Extraocular movements grossly intact. Moist buccal mucosa. Head is atraumatic, normocephalic. Hears conversational speech. No nasal drainage. NECK: Supple without lymphadenopathy. CHEST: Non-labored respirations and equal bilateral excursions. CARDIOVASCULAR: Palpable 2+ radial pulses. ABDOMEN: Soft. Nondistended. Incision sites clean dry and intact MUSCULOSKELETAL: No clubbing or cyanosis. NEUROLOGIC: No focal or lateralizing signs. Cranial nerves II through XII grossly intact. PSYCH: Appropriate affect. Alert and oriented to person, place and time. SKIN: Well perfused. Good skin turgor. ASSESSMENT: 1. Strangulated recurrent incarcerated paraesophageal hiatal hernia, 9 x 4 cm 2. Gastric infarction 3. Gastric ischemia 4. Gastric volvulus with infarction PLAN: - Continue Enrique clear liquid diet with no straws or carbonated beverages - Add Ensure clear for protein supplement - Encourage patient increase activity level - Encourage patient to use incentive spirometer - Continue pain management Physician Teachers Aide note has been reviewed by physician. Signing provider agrees with the documented findings, assessment, and plan of care. Objective - Vital Signs Vital signs: Vital Signs Temp 97.8 F 10/14/24 11:05 Pulse 69 10/14/24 11:05 Resp 16 10/14/24 11:05 BP 122/68 10/14/24 11:05 Pulse Ox 94 L 10/14/24 11:05 FiO2 Intake & Output 10/13/24 10/14/24 10/14/24 18:59 06:59 18:59 Intake Total 1566 558 Balance 1566 558 Weight 59.6 kg Intake: IV 340 Dextrose 5% in Water 1, 240 000 ml @ 80 mls/hr IV . [id number] [facility] with Sodium Bicarb (1 Meq/ml) 150 ml Rx#:[id number] metroNIDAZOLE-NS PMX 500 100 mg In Saline 1 100ml.bag @ 100 mls/hr IVPB Q8H [facility] Rx#:[id number] Intake, IV Titration 708 Amount Lactated Ringers 1,000 ml 708 @ 70 mls/hr IV .[id number] [facility] Rx#:[id number] Oral 518 558 Other: Voiding Method Toilet Toilet # Voids 1 2 - Labs CBC & Chem 7: 10/14/24 05:53 10/14/24 05:53 Labs: Abnormal Lab Results - Last 24 Hours (Table) 10/14/24 10/14/24 Range/Units 05:53 05:53 WBC 14.14 H (4.50-10.00) 10*3/uL RBC 3.10 L (4.10-5.20) 10*6/uL Hgb 9.5 L D (12.0-15.0) g/dL Hct 29.1 L (37.2-46.3) % Neutrophils # 11.53 H (1.80-7.70) 10*3/uL Monocytes # 1.19 H (0.20-1.00) 10*3/uL Sodium 136 L (137-145) mmol/L BUN 19 H (7-17) mg/dL Calcium 8.1 L (8.4-10.2) mg/dL
--- NOTE | 2024-10-14 15:08 | XR ---
EXAMINATION TYPE: XR chest 1V portable DATE OF EXAM: 10/14/2024 2:43 PM COMPARISON: 11/11/2024 CLINICAL INDICATION: Female, 79 years old with history of dyspnea, shortness of breath FINDINGS: Heart borderline enlarged. Envoy [id number] left pleural effusion with left basilar opacity. U pper lungs appear clear. IMPRESSION: Ongoing [id number] left pleural effusion with prominent adjacent atelectasis and/or consolidat ion. [facility], Workstation: [facility], 10/14/2024 3:05 PM
--- NOTE | 2024-10-14 19:02 | P.PN ---
Progress Note - Text Progress Note Date: 10/14/24 Patient seen and reevaluated this evening. Patient reports staying due to oxygen levels and not having a bowel movement. Patient placed on Senokot including MiraLAX. MiraLAX contraindicated at this time. I placed the patient on lactulose and milk of magnesia. Liquid diet only. Chest x-ray demonstrated anticipated left pleural effusion due to gastric infarction and gastric ischemia including third spacing. Agree with oxygen on discharge per pulmonary. Close outpatient follow-up described. Avoiding all solid foods including cut pills reviewed. Will likely need antibiotic on discharge.
[2024-10-14] MEDS: MAGNESIUM HYDROXIDE 2,400 MG/30 ML CUP PO STA (20:19)
[2024-10-14] MEDS: LACTULOSE 20 GM/30 ML CUP PO ONE (20:19)
--- NOTE | 2024-10-14 22:46 | P.PN ---
Subjective Patient is seen for follow-up for acute kidney injury and hyperkalemia. Patient states that her potassium has been borderline elevated as outpatient for a long time. No urine retention Status post IV bicarb. Status post repair of strangulated recurrent paraesophageal hiatal hernia with partial gastrectomy on 10/12/2024 Overall feeling better. Pain is controlled Objective - Vital Signs Vital signs: Vital Signs Temp 98.0 F 10/14/24 20:00 Pulse 75 10/14/24 20:00 Resp 16 10/14/24 20:00 BP 124/65 10/14/24 20:00 Pulse Ox 94 L 10/14/24 20:00 FiO2 Intake & Output 10/14/24 10/14/24 10/15/24 06:59 18:59 06:59 Intake Total 1235 Balance 1235 Weight 59.6 kg Intake: Oral 1235 Other: Voiding Method Toilet Toilet # Voids 2 # Bowel Movements 1 - Exam Patient is awake, comfortable, no acute distress. Examination of the heart S1 and S2 Examination of the lungs bilateral breath sounds are heard Abdomen is soft Examination of lower extremity shows no evidence of edema RESPIRATORY THERAPY AIDE exam grossly intact - Labs CBC & Chem 7: 10/14/24 05:53 10/14/24 05:53 Labs: Abnormal Lab Results - Last 24 Hours (Table) 10/14/24 10/14/24 Range/Units 05:53 05:53 WBC 14.14 H (4.50-10.00) 10*3/uL RBC 3.10 L (4.10-5.20) 10*6/uL Hgb 9.5 L D (12.0-15.0) g/dL Hct 29.1 L (37.2-46.3) % Neutrophils # 11.53 H (1.80-7.70) 10*3/uL Monocytes # 1.19 H (0.20-1.00) 10*3/uL Sodium 136 L (137-145) mmol/L BUN 19 H (7-17) mg/dL Calcium 8.1 L (8.4-10.2) mg/dL Assessment and Plan Assessment: 1. Acute kidney injury most likely associated with some degree of volume depletion with history of decreased intake over the last few days. UA shows trace protein. No evidence of urine retention on bladder scan. Ultrasound of the kidneys is unremarkable. Status post cardiac catheterization on 10/10/2024. 2. Mild hyperkalemia which is chronic. No evidence of urine retention. Patient is not maintained on GRAYSON inhibitors or Aldactone. Denies use of NSAIDs. Rule out constipation. 3. Incarcerated paraesophageal hiatal hernia, status post repair and partial gastrectomy on 10/12/2024 4. Chest pain with elevated troponin status post cardiac catheterization on 10/10/2024 with no evidence of obstructive coronary artery disease 5. Hypertension maintained on Norvasc 6. Hypercalcemia associated with volume contraction, improved post IV hydration. No history of use of calcium supplements or Tums. 7. Metabolic acidosis nongap secondary to acute kidney injury and IV fluids Plan: Continue IV fluids until maintaining good oral intake Repeat labs in a.m. Continue low potassium diet
[2024-10-15 06:57] LABS: HCT 36.5 % (37.2-46.3); HGB 11.9 g/dL (12.0-15.0); MCH 30.9 pg (27.0-32.0); MCHC 32.6 g/dL (32.0-37.0); MCV 94.8 fL (80.0-97.0); Mean Platelet Volume 12.3 fL (9.5-12.2); Platelet Count 222 10*3/uL (140-440); RBC 3.85 10*6/uL (4.10-5.20); RDW 13.8 % (11.5-14.5); WBC 9.41 10*3/uL (4.50-10.00)
[2024-10-15 10:23] VITALS: TEMP 97.5
--- NOTE | 2024-10-15 10:31 | P.PN ---
Subjective Progress Note Date: 10/15/24 Principal diagnosis: Lung collapse. Patient is a 79-year-old female with past medical history significant for hiatal hernia with previous repair, GERD, chronic bronchial asthma, obstructive sleep apnea, hypertension, hyperlipidemia, and former tobacco dependence. Present to the emergency department back on 10/09/2024 with a chief complaint of left-sided chest pain with associated intractable nausea and vomiting. Patient worked up by cardiology and did undergo heart catheterization which found mild nonobstructive coronary artery disease. Follow-up echocardiogram estimating preserved left ventricular ejection fraction of 55%. CT chest did show a recurrent large paraesophageal hiatal hernia. She does have history of hiatal hernia with previous repair back in November,. It was determined the chest pain was secondary to incarcerated paraesophageal hiatal hernia. On 10/12/2024, did undergo robotic assisted laparoscopic repair of the strangulated recurrent paraesophageal hiatal hernia, EGD with gastric decompression, reduction of gastric volvulus, and partial gastrectomy for gastric infarction. Also reported intraoperative drainage of a small left pleural effusion. Approximately 200 cc. Patient has been recovering on the cardiac stepdown unit. Tolerating oral fluids. Continues to have some epigastric discomfort. No further nausea, vomiting. On 2 L/min nasal cannula. Not in any respiratory distress. Pulmonary consult placed for "collapsed left lung". Follow-up chest x-ray did not show any evidence of pneumothorax, pleural effusions, focal consolidation. There is postsurgical changes with reduction of the left hiatal hernia. Patient does have history of chronic bronchial asthma. Follows in the pulmonary office with Dr. Evans. Normally maintained on a combination of Trelegy maintenance inhaler as well as as needed albuterol inhaler. Pulmonary status currently appears stable. Viral screen negative for influenza, RSV, COVID. Incentive sp irometer is at bedside. Most recent labs from yesterday including a CBC with a WBC count of 17.3, hemoglobin 12.2, platelets 198. BMP is unremarkable, electrolytes WDL, creatinine 0.88, glucose 151. LR currently infusing at 75 mL/h. Vital signs are stable. Progress note dated October 15, 2024. 79-year-old female who was seen today in room 359. We were consulted on this lady yesterday. She has not been in the hospital for 6 days. She is currently on 2 L. She denies any shortness of breath, cough, wheezing, chest tightness, or phlegm production. She is not receiving any IV fluids. She is hoping to be discharged soon. Current laboratory data includes a white count of 9.4, hemoglobin 11.9, hematocrit 36.5, and a platelet count of 222,000. Chest x-ray from yesterday shows a small left-sided pleural effusion. There are some adjacent atelectasis. Objective - Vital Signs Vital signs: Vital Signs Temp 97.5 F L 10/15/24 08:00 Pulse 77 10/15/24 08:00 Resp 18 10/15/24 08:00 BP 139/80 10/15/24 08:00 Pulse Ox 97 10/15/24 08:31 FiO2 Intake & Output 10/14/24 10/15/24 10/15/24 18:59 06:59 18:59 Intake Total 1235 180 Balance 1235 180 Weight 59.6 kg 60.5 kg Intake: Oral 1235 180 Other: Voiding Method Toilet Toilet Toilet # Bowel Movements 1 - Exam No acute distress, oriented 3. Currently, the patient is on 2 L. HEENT examination is grossly unremarkable. Mucous membranes are moist. No oral lesions. Neck supple. Full range of motion. No adenopathy thyromegaly or neck vein distention. Cardiovascular examination reveals regular rhythm rate. S1-S2 normal. No S3 or S4. No discernible murmur noted. Lungs reveal left basilar crackles. No wheezes, or rhonchi. 2 L saturation is 98%. Abdomen soft bowel sounds are heard. No masses or tenderness. Extremities are intact. No cyanosis clubbing or edema. Skin is without rash or lesion. Neurologic examination is brief but nonfocal. - Labs CBC & Chem 7: 10/15/24 05:55 10/14/24 05:53 Labs: Abnormal Lab Results - Last 24 Hours (Table) 10/15/24 Range/Units 05:55 RBC 3.85 L (4.10-5.20) 10*6/uL Hgb 11.9 L (12.0-15.0) g/dL Hct 36.5 L (37.2-46.3) % MPV 12.3 H (9.5-12.2) fL Assessment and Plan Assessment: Strangulated recurrent incarcerated paraesophageal hiatal hernia status postoperative day #3 following laparoscopic surgical repair of the strangulated recurrent paraesophageal hiatal hernia, EGD with gastric decompression, reduction of gastric volvulus, and partial gastrectomy due to gastric infarction. Chest pain, secondary to above. Acute hypoxemic respiratory failure, secondary to above. Mild nonobstructive coronary artery disease. Leukocytosis, improving. Acute kidney injury, resolved. Hypertension. History of hyperlipidemia. History of obstructive sleep apnea. Chronic bronchial asthma, stable and inactive. History of hiatal hernia with previous repair November,. Gastroesophageal reflux disease. Former tobacco dependence, quitting over 20 years ago. Plan: Plan dated October 15, 2024. The patient is seen today in room 359. She remains on 2 L. She is not having any pulmonary complaints. The oxygen can probably be weaned off. The patient does have some mild asthma, which is stable and not active at this time. Cli nically, the patient appears to be doing well. She is hoping to be discharged soon. All labs, x-rays, and medications are reviewed. We will continue to follow make recommendations along the way. Prognosis is guarded. Dictation was produced using [employer] software. Please excuse any grammatical, word or spelling errors. Time with Patient: Less than 30
[2024-10-15 11:27] VITALS: BMI 26.0
--- NOTE | 2024-10-15 12:11 | P.PN ---
Subjective Patient is seen for follow-up for acute kidney injury and hyperkalemia. Patient states that her potassium has been borderline elevated as outpatient for a long time. No urine retention Status post IV bicarb. Status post repair of strangulated recurrent paraesophageal hiatal hernia with partial gastrectomy on 10/12/2024 Overall feeling better. Pain is controlled Serum potassium seems to have improved postoperatively and is actually low today at 3.3. Objective - Vital Signs Vital signs: Vital Signs Temp 97.5 F L 10/15/24 08:00 Pulse 77 10/15/24 08:00 Resp 18 10/15/24 08:00 BP 139/80 10/15/24 08:00 Pulse Ox 85 L 10/15/24 11:33 FiO2 Intake & Output 10/14/24 10/15/24 10/15/24 18:59 06:59 18:59 Intake Total 1235 180 Balance 1235 180 Weight 59.6 kg 60.5 kg 60.5 kg Intake: Oral 1235 180 Other: Voiding Method Toilet Toilet Toilet # Bowel Movements 1 - Exam Patient is awake, comfortable, no acute distress. Examination of the heart S1 and S2 Examination of the lungs bilateral breath sounds are heard Abdomen is soft Examination of lower extremity shows no evidence of edema BREAKER HAND exam grossly intact - Labs CBC & Chem 7: 10/15/24 05:55 10/15/24 10:29 Labs: Abnormal Lab Results - Last 24 Hours (Table) 10/15/24 10/15/24 Range/Units 05:55 10:29 RBC 3.85 L (4.10-5.20) 10*6/uL Hgb 11.9 L (12.0-15.0) g/dL Hct 36.5 L (37.2-46.3) % MPV 12.3 H (9.5-12.2) fL Potassium 3.3 L (3.5-5.1) mmol/L Assessment and Plan Assessment: 1. Acute kidney injury most likely associated with some degree of volume depletion with history of decreased intake over the last few days. UA shows trace protein. No evidence of urine retention on bladder scan. Ultrasound of the kidneys is unremarkable. Status post cardiac catheterization on 10/10/2024. 2. Mild hyperkalemia which is chronic. No evidence of urine retention. Patient is not maintained on GRAYSON inhibitors or Aldactone. Denies use of NSAIDs. Possibly related to incarcerated hiatal hernia with improvement in potassium after surgery. 3. Incarcerated paraesophageal hiatal hernia, status post repair and partial gastrectomy on 10/12/2024 4. Chest pain with elevated troponin status post cardiac catheterization on 10/10/2024 with no evidence of obstructive coronary artery disease 5. Hypertension maintained on Norvasc 6. Hypercalcemia associated with volume contraction, improved post IV hydration. No history of use of calcium supplements or Tums. 7. Metabolic acidosis nongap secondary to acute kidney injury and IV fluids Plan: Can DC IV fluids Encourage increased oral intake Cautious replacement of potassium. I believe her hyperkalemia was related to the incarcerated hiatal hernia and has now improved postoperatively. Patient will need monitoring of her potassium levels as outpatient. We may need to discontinue potassium restriction and diet based on her repeat potassium levels
[2024-10-15] MEDS: POTASSIUM CHLORIDE ER 10 MEQ TAB.ER.PRT PO STA (12:46)
--- NOTE | 2024-10-15 14:04 | P.PN ---
Subjective Progress Note Date: 10/15/24 CHIEF COMPLAINT: Abdominal pain HISTORY OF PRESENT ILLNESS: Patient is postop day #3 status post robotic assisted laparoscopic reduction of organoaxial gastric volvulus, repair of strangulated recurrent paraesophageal hiatal hernia, drainage of left pleural effusion, partial gastrectomy for gastric infarction. Patient's pain is controlled. She did have a bowel movement with the lactulose and milk of mag. Patient has been up and ambulating. She is afebrile. Her white count is normalized. Hemoglobin did go up from 9.5-11.9. She is tolerating the full liquid diet. PHYSICAL EXAM: VITAL SIGNS: Reviewed GENERAL: Well-developed in no acute distress. HEENT: No sclera icterus. Extraocular movements grossly intact. Moist buccal mucosa. Head is atraumatic, normocephalic. Hears conversational speech. No nasal drainage. NECK: Supple without lymphadenopathy. CHEST: Non-labored respirations and equal bilateral excursions. CARDIOVASCULAR: Palpable 2+ radial pulses. ABDOMEN: Soft. Nondistended. Incision sites clean dry and intact MUSCULOSKELETAL: No clubbing or cyanosis. NEUROLOGIC: No focal or lateralizing signs. Cranial nerves II through XII grossly intact. PSYCH: Appropriate affect. Alert and oriented to person, place and time. SKIN: Well perfused. Good skin turgor. ASSESSMENT: 1. Strangulated recurrent incarcerated paraesophageal hiatal hernia, 9 x 4 cm 2. Gastric infarction 3. Gastric ischemia 4. Gastric volvulus with infarction PLAN: -Continue full liquid diet with no straws or carbonated beverages for the next 2 weeks -Continue protein supplement -patient can be discharged from surgical standpoint when medically cleared -Increase activity level Physician Veterinarian Epidemiologist note has been reviewed by physician. Signing provider agrees with the documented findings, assessment, and plan of care. Objective - Vital Signs Vital signs: Vital Signs Temp 97.5 F L 10/15/24 08:00 Pulse 77 10/15/24 08:00 Resp 18 10/15/24 08:00 BP 139/80 10/15/24 08:00 Pulse Ox 85 L 10/15/24 11:33 FiO2 Intake & Output 10/14/24 10/15/24 10/15/24 18:59 06:59 18:59 Intake Total 1235 180 Balance 1235 180 Weight 59.6 kg 60.5 kg 60.5 kg Intake: Oral 1235 180 Other: Voiding Method Toilet Toilet Toilet # Bowel Movements 1 - Labs CBC & Chem 7: 10/15/24 05:55 10/15/24 10:29 Labs: Abnormal Lab Results - Last 24 Hours (Table) 10/15/24 10/15/24 Range/Units 05:55 10:29 RBC 3.85 L (4.10-5.20) 10*6/uL Hgb 11.9 L (12.0-15.0) g/dL Hct 36.5 L (37.2-46.3) % MPV 12.3 H (9.5-12.2) fL Potassium 3.3 L (3.5-5.1) mmol/L
[2024-10-15 14:33] VITALS: BP 94/61; RESP 17
--- NOTE | 2024-10-15 15:03 | P.DS ---
Providers Date of admission: 10/09/24 23:01 Expected date of discharge: 10/15/24 Attending physician: Dionna Gillespie Consults: 10/09/24 23:11 Consult Physician Urgent Consulting Provider: Gertrude Prakash Consult Reason/Comments: epigastric pain Do you want consulting provider notified?: Already Contacted 10/11/24 08:36 Consult Physician Routine Consulting Provider: Dante Laws Consult Reason/Comments: Acute renal failure Do you want consulting provider notified?: Yes 10/13/24 14:12 Consult Physician Routine Consulting Provider: Richi Evans Consult Reason/Comments: had collapsed lung Do you want consulting provider notified?: Yes Primary care physician: Nikita Morin MD Hospital Course: Discharge diagnoses; #Recurrent strangulated incarcerated paraesophageal hiatal hernia status post partial gastrectomy, reduction and repair #Gastric volvulus with infarction #Chest pain with typical and atypical features #NSTEMI, type II due to above #Mild obstructive disease in mid LAD and proximal and mid RCA #Acute hypoxic respiratory failure due to above #EBONI due to volume depletion #Metabolic acidosis non-anion gap #Mild hyperkalemia #Leukocytosis #Hypertensive urgency Chronic Medical Conditions #Essential hypertension # Hyperlipidemia #COPD Hospital course; History of present illness; Patient is 79-year-old female with history of hypertension, hyperlipidemia, JOSEPHINE, recent hiatal hernia surgery who presented with shortness of breath and chest pain. Patient states 2 nights ago she began having constant substernal pain radiating to left arm left neck and left shoulder. Pain described as knifelike and back and dull pain in chest. Worse with deep inspiration. Currently, this pain is still present. She denies orthopnea. Associated symptoms of nausea, shortness of breath. She tried Tums which did not improve her symptoms. She endorses history of 2 hiatal hernia surgeries in the past year. No other symptoms at this time. During hospital course patient seen for repair of recurrent strangulated incarcerated paraesophageal hiatal hernia, and is status post partial gastrectomy, reduction and repair. She also had gastric volvulus with infarction. Also during stay patient had NSTEMI type II and was seen by cardiology with cath and echocardiogram completed. Patient is discharged home in stable condition. She will need to continue antibiotics, Lipitor, metoprolol. She can begin omeprazole and simethicone with acetaminophen as needed for pain. Continue full liquid diet with no straws or carbonated beverages for the next 2 weeks. Continue protein supplementation. She will also be sent home on 2 L of oxygen, can wean off as tolerated. Follow- up with PCP, and surgery. PHYSICAL EXAMINATION: Vitals reviewed GENERAL: Resting in bed. CARDIOVASCULAR: S1 and S2 present. No murmurs, rubs, or gallops. PULMONARY: Chest is clear to auscultation, no wheezing, rhonchi, or crackles. ABDOMEN: Soft, nontender, nondistended. No palpable organomegaly. MUSCULOSKELETAL: No apparent joint swelling and deformities. EXTREMITIES: No apparent cyanosis, clubbing. No pedal edema. NEUROLOGICAL: Alert and oriented. Gross neurological examination with no apparent focal deficits. Dr. Lawson seen patient with resident, present during exam, and agreed with findings. Dictation was produced using [employer] dictation software. please excuse any grammatical, word or spelling errors. Patient Condition at Discharge: Stable Plan - Discharge Summary New Discharge Prescriptions: New Omeprazole [PriLOSEC] 40 mg PO DAILY #14 cap Acetaminophen Tab [Tylenol Tab] 1,000 mg PO Q6HR PRN #30 tablet PRN Reason: Pain Atorvastatin [Lipitor] 40 mg PO DAILY #30 tab cefuroxime axetiL [Ceftin] 500 mg PO BID #20 tab Simethicone 40 mg/0.6 ml Drops [Mylicon Drops] 40 mg PO QID #30 ml Metoprolol Tartrate [Lopressor] 25 mg PO BID #60 tab Continue Pitavastatin Calcium 2 mg PO DAILY Montelukast Sodium 10 mg PO DAILY Fluticasone/Umeclidin/Vilanter [Trelegy Ellipta 200-62.5-25] 1 puff INHALATION RT-DAILY amLODIPine [Norvasc] 10 mg PO DAILY Latanoprost Ophth [Xalatan 0.005%] 1 drops BOTH EYES HS Raloxifene [Evista] 60 mg PO DAILY Ergocalciferol [Vitamin D2 (1250 Mcg = 70407 Iu)] 1,250 mcg PO MO Acetaminophen Tab [Tylenol] 1,000 mg PO Q6HR PRN #30 tablet PRN Reason: Pain Discharge Medication List Ergocalciferol [Vitamin D2 (1250 Mcg = 11487 Iu)] 1,250 mcg PO MO 08/05/23 [History] Fluticasone/Umeclidin/Vilanter [Trelegy Ellipta 200-62.5-25] 1 puff INHALATION RT-DAILY 08/05/23 [History] Latanoprost Ophth [Xalatan 0.005%] 1 drops BOTH EYES HS 08/05/23 [History] Montelukast Sodium 10 mg PO DAILY 08/05/23 [History] Pitavastatin Calcium 2 mg PO DAILY 08/05/23 [History] Raloxifene [Evista] 60 mg PO DAILY 08/05/23 [History] Acetaminophen Tab [Tylenol] 1,000 mg PO Q6HR PRN #30 tablet 08/07/24 [Rx] amLODIPine [Norvasc] 10 mg PO DAILY 10/09/24 [History] Acetaminophen Tab [Tylenol Tab] 1,000 mg PO Q6HR PRN #30 tablet 10/15/24 [Rx] Atorvastatin [Lipitor] 40 mg PO DAILY #30 tab 10/15/24 [Rx] Metoprolol Tartrate [Lopressor] 25 mg PO BID #60 tab 10/15/24 [Rx] Omeprazole [PriLOSEC] 40 mg PO DAILY #14 cap 10/15/24 [Rx] Simethicone 40 mg/0.6 ml Drops [Mylicon Drops] 40 mg PO QID #30 ml 10/15/24 [Rx] cefuroxime axetiL [Ceftin] 500 mg PO BID #20 tab 10/15/24 [Rx] Follow up Appointment(s)/Referral(s): [facility] [NON-STAFF] - 1 Week Gertrude Prakash MD [STAFF PHYSICIAN] - 10/20/24 6:00 pm (TELEHEALTH - DR WILL CALL YOU) None,Stated [REFERRING] - 1-2 days Activity/Diet/Wound Care/Special Instructions: Liquid diet only for 2 weeks until October 26 No lifting over 4 pounds in 4 weeks, November 11October shower No soaking in bath tubs for 2 weeks, October 26 Please notify your surgeon if you develop nausea and vomiting including new onset of abdominal pain. Please ambulate at all times. Use Simethicone, Gas-X, Tylenol and ibuprofen or Aleve scheduled for the next 24-48 hours for best pain relief. Use ice along incisions for the today to prevent swelling. Please open, cut, crush pills larger than the size of a tic tack No carbonated beverages. No straws. Do not remove scopolamine patch for 3 days, if present Avoiding Gas Avoid drinking through a straw. Do not chew gum or tobacco. These actions cause you to swallow air, which produces excess gas in your stomach. Chew with your mouth closed. Avoid any foods that cause stomach gas and distention. These foods include corn, dried beans, peas, lentils, onions, broccoli, cauliflower and any food from the cabbage family. Avoid carbonated drinks, alcohol, citrus and tomato products. Carbonated drinks (sodas) are not allowed for the first six to eight weeks after surgery. After this time you can try them again in small amounts Clear Liquid Diet The first diet after surgery is the clear liquid diet. It includes the following liquids: Apple juice Cranberry juice Grape juice Chicken broth Beef broth Flavored gelatin (Jell-O) Decaf tea and coffee Caffeinated beverages are permitted based on tolerance [employer] ice Full Liquid Diet The full liquid diet contains anything on the clear liquid diet, plus: Milk, soy, rice and almond (no chocolate) Cream of wheat, cream of rice, grits Strained creamed soups (no tomato or broccoli) Vanilla and strawberry-flavored ice cream Sherbet Blended, custard styled or whipped yogurt (plain or vanilla only) Vanilla and butterscotch pudding (no chocolate or coconut) Nutritional drinks including Ensure, Boost, [place] Instant Breakfast (no chocolate-flavored) Note: Dairy products, such as milk, ice cream and pudding, may cause diarrhea in some people just after surgery. You may need to avoid milk products. If so, substitute them with lactose-free beverages, such as soy, rice, Lactaid or almond milks. Discharge Disposition: HOME SELF-CARE
[2024-10-15 15:57] VITALS: PULSE 91
== END 2024-10-15 16:31 | disposition home or self-care (01) | DRG 326 ==
LOC: EC 15:53 → 6NMEDSUR 23:00 → OBSVTOIN 23:01 → 6NMEDSUR 23:30 → 3SCARD 10-10 01:56
PROVIDERS: ADMIT Hospitalist; ATTEND Hospitalist
PROC: B2111ZZ Fluoroscopy of Multiple Coronary Arteries using Low Osmolar Contrast (ICD-10-PCS; 2024-10-10)
PROC: 4A023N7 Measurement of Cardiac Sampling and Pressure, Left Heart, Percutaneous Approach (ICD-10-PCS; 2024-10-10)
PROC: 0DS64ZZ Reposition Stomach, Percutaneous Endoscopic Approach (ICD-10-PCS; principal; 2024-10-12 07:30)
PROC: 8E0W4CZ Robotic Assisted Procedure of Trunk Region, Percutaneous Endoscopic Approach (ICD-10-PCS; principal; 2024-10-12 07:30)
PROC: 0W9B4ZZ Drainage of Left Pleural Cavity, Percutaneous Endoscopic Approach (ICD-10-PCS; principal; 2024-10-12 07:30)
PROC: 0DNW4ZZ Release Peritoneum, Percutaneous Endoscopic Approach (ICD-10-PCS; principal; 2024-10-12 07:30)
PROC: 0DB64ZZ Excision of Stomach, Percutaneous Endoscopic Approach (ICD-10-PCS; principal; 2024-10-12 07:30)
PROC: 0BUT4JZ Supplement Diaphragm with Synthetic Substitute, Percutaneous Endoscopic Approach (ICD-10-PCS; principal; 2024-10-12 07:30)
PROC: 0DJ08ZZ Inspection of Upper Intestinal Tract, Via Natural or Artificial Opening Endoscopic (ICD-10-PCS; principal; 2024-10-12 07:30)
DX: K44.0 Diaphragmatic hernia with obstruction, without gangrene (principal); I21.A1 Myocardial infarction type 2; J96.01 Acute respiratory failure with hypoxia; K55.9 Vascular disorder of intestine, unspecified; I16.0 Hypertensive urgency; J90 Pleural effusion, not elsewhere classified; J44.9 Chronic obstructive pulmonary disease, unspecified; I08.3 Combined rheumatic disorders of mitral, aortic and tricuspid valves; N17.9 Acute kidney failure, unspecified; R13.10 Dysphagia, unspecified; K31.89 Other diseases of stomach and duodenum; K66.0 Peritoneal adhesions (postprocedural) (postinfection); M81.0 Age-related osteoporosis without current pathological fracture; M54.2 Cervicalgia; R59.9 Enlarged lymph nodes, unspecified; H40.9 Unspecified glaucoma; E83.52 Hypercalcemia; E78.5 Hyperlipidemia, unspecified; E86.0 Dehydration; E87.5 Hyperkalemia; G47.33 Obstructive sleep apnea (adult) (pediatric); I25.10 Atherosclerotic heart disease of native coronary artery without angina pectoris; Z87.891 Personal history of nicotine dependence; Z74.01 Bed confinement status; Z88.6 Allergy status to analgesic agent; Z88.0 Allergy status to penicillin
CPT/HCPCS: 36415; 71045; 71046; 71260; 74210; 76705; 76770; 80048; 80053; 81001; 82150; 83690; 83735; 83880; 84132; 84484; 85025; 85027; 85610; 85730; 87636; 88307; 93005; 93306; 93458; 94640; 94760; 96365; 96366; 96375; 96376; 99285